=== PATIENT | female | born 1970 | race Caucasian/White ===

== ENCOUNTER 2017-09-23 15:19 | Emergency (ER) | payer MEDICARE, OTHER, SELFPAY | END 2017-09-23 16:51 | disposition home or self-care (01) | PROVIDERS: Emergency Provider Nurse Practitioner Family; Family Provider Emergency Medicine; Visit Provider Nurse Practitioner Family | DX: J09.X2 Influenza due to identified novel influenza A virus with other respiratory manifestations (principal); Z79.899 Other long term (current) drug therapy | CPT/HCPCS: 87804; 99201 ==

== ENCOUNTER → 2018-05-13 15:55 | Outpatient (CLI) | payer MEDICARE, OTHER, SELFPAY ==
[2018-05-13 16:38] LABS: Basophils % 0.4 % (0.1-2.0); Eosinophils # 0.6 K/mm3 (0.0-0.4); Eosinophils % 9.5 % (0.1-12.0); Hematocrit 40.9 % (37.0-47.0); Hemoglobin 13.5 g/dL (12.2-16.2); Mean Corpuscular HGB Conc 33.1 g/dL (31.8-35.4); Mean Corpuscular Hemoglobin 31.6 pg (27.0-31.2); Mean Corpuscular Volume 95.5 fl (81-99); Monocytes # 0.4 K/mm3 (0.1-1.0); Monocytes % 6.7 % (1.7-9.3); Neutrophils # 3.9 K/mm3 (1.8-7.8); Neutrophils % 66.4 % (37.0-80.0); Platelet Count 398 K/mm3 (142-424); Red Blood Count 4.28 M/mm3 (4.20-5.40); Red Cell Distribution Width 12.7 % (11.5-17.5); White Blood Count 5.9 K/mm3 (4.8-10.8)
[2018-05-13 17:56] LABS: Alanine Aminotransferase 16 U/L (12-78); Albumin Level 3.5 gm/dL (3.4-5.0); Albumin/Globulin Ratio 0.9 (1.1-1.8); Alkaline Phosphatase 108 U/L (46-116); Anion Gap 8.2 mEq/L (5-15); Aspartate Amino Transferase 11 U/L (15-37); Bilirubin,Total 0.2 mg/dL (0.2-1.0); Blood Urea Nitrogen 15 mg/dL (7-18); Carbon Dioxide 31 mmol/L (21.0-32.0); Chloride 107 mmol/L (98-107); Creatinine,Serum 0.83 mg/dL (0.55-1.02); Estimated Glomerular Filt Rate 73 ml/min (>60); GFR (African American) 88 ML/MIN (>60); Globulin 3.8 gm/dl (1.3-3.2); Glucose 97 mg/dL (74-106); Potassium 4.2 mmoL/L (3.5-5.1); Sodium 142 mmol/L (136-145); Total Protein,Serum 7.3 gm/dL (6.4-8.2)
== END ==
PROVIDERS: Visit Provider Physician Assistant
DX: K50.10 Crohn's disease of large intestine without complications (principal)
CPT/HCPCS: 36415; 80053; 85025

== ENCOUNTER → 2018-08-31 16:44 | Outpatient (CLI) | payer MEDICARE, OTHER, SELFPAY ==
[2018-08-31 17:03] LABS: Phenytoin (Dilantin) 2.9 ug/mL (10-20)
== END ==
PROVIDERS: Visit Provider Emergency Medicine
DX: R56.9 Unspecified convulsions (principal)
CPT/HCPCS: 80184; 80185

== ENCOUNTER → 2019-01-12 11:38 | Outpatient (CLI) | payer MEDICARE, OTHER, SELFPAY ==
[2019-01-12 12:04] LABS: Basophils % 0.7 % (0.1-2.0); Eosinophils # 0.4 K/mm3 (0.0-0.4); Eosinophils % 7.6 % (0.1-12.0); Hematocrit 38.3 % (37.0-47.0); Hemoglobin 13.1 g/dL (12.2-16.2); Lymphocytes % 16.8 % (10-50); Mean Corpuscular HGB Conc 34.1 g/dL (31.8-35.4); Mean Corpuscular Hemoglobin 32.9 pg (27.0-31.2); Mean Corpuscular Volume 96.6 fl (81-99); Mean Platelet Volume 6.8 fl (7.4-10.4); Monocytes # 0.4 K/mm3 (0.1-1.0); Monocytes % 7.2 % (1.7-9.3); Neutrophils % 67.7 % (37.0-80.0); Platelet Count 453 K/mm3 (142-424); Red Blood Count 3.97 M/mm3 (4.20-5.40); Red Cell Distribution Width 13.2 % (11.5-17.5); White Blood Count 5.8 K/mm3 (4.8-10.8)
[2019-01-12 12:36] LABS: Alanine Aminotransferase 15 U/L (12-78); Albumin Level 3.7 gm/dL (3.4-5.0); Albumin/Globulin Ratio 0.9 (1.1-1.8); Alkaline Phosphatase 107 U/L (46-116); Anion Gap 12.3 mEq/L (5-15); Aspartate Amino Transferase 12 U/L (15-37); Bilirubin,Total 0.2 mg/dL (0.2-1.0); Blood Urea Nitrogen 12 mg/dL (7-18); Calcium 9.4 mg/dL (8.5-10.1); Carbon Dioxide 28 mmol/L (21.0-32.0); Chloride 105 mmol/L (98-107); Creatinine,Serum 0.77 mg/dL (0.55-1.02); Estimated Glomerular Filt Rate 79 ml/min (>60); GFR (African American) 96 ML/MIN (>60); Glucose 96 mg/dL (74-106); Potassium 4.3 mmoL/L (3.5-5.1); Sodium 141 mmol/L (136-145); Total Protein,Serum 7.7 gm/dL (6.4-8.2)
== END ==
PROVIDERS: Visit Provider Physician Assistant
DX: K50.10 Crohn's disease of large intestine without complications (principal)
CPT/HCPCS: 36415; 80053; 85025

== ENCOUNTER → 2019-06-09 15:55 | Outpatient (CLI) | payer MEDICARE, OTHER, SELFPAY ==
[2019-06-09 16:31] LABS: Basophils % 0.4 % (0.1-2.0); Eosinophils # 0.4 K/mm3 (0.0-0.4); Hemoglobin 13.2 g/dL (12.2-16.2); Lymphocytes # 1.2 K/mm3 (0.7-4.5); Lymphocytes % 18.9 % (10-50); Mean Corpuscular HGB Conc 33.1 g/dL (31.8-35.4); Mean Corpuscular Hemoglobin 32.6 pg (27.0-31.2); Mean Corpuscular Volume 98.6 fl (81-99); Mean Platelet Volume 6.8 fl (7.4-10.4); Monocytes # 0.4 K/mm3 (0.1-1.0); Monocytes % 6.5 % (1.7-9.3); Neutrophils # 4.1 K/mm3 (1.8-7.8); Neutrophils % 67.2 % (37.0-80.0); Platelet Count 445 K/mm3 (142-424); Red Blood Count 4.05 M/mm3 (4.20-5.40); Red Cell Distribution Width 12.8 % (11.5-17.5); White Blood Count 6.1 K/mm3 (4.8-10.8)
[2019-06-09 22:19] LABS: Alanine Aminotransferase 17 U/L (12-78); Albumin Level 3.8 gm/dL (3.4-5.0); Alkaline Phosphatase 108 U/L (46-116); Anion Gap 12.6 mEq/L (5-15); Aspartate Amino Transferase 15 U/L (15-37); Bilirubin,Total 0.3 mg/dL (0.2-1.0); Blood Urea Nitrogen 10 mg/dL (7-18); Calcium 9.2 mg/dL (8.5-10.1); Carbon Dioxide 29 mmol/L (21.0-32.0); Chloride 105 mmol/L (98-107); Creatinine,Serum 0.72 mg/dL (0.55-1.02); Estimated Glomerular Filt Rate 85 ml/min (>60); GFR (African American) 103 ML/MIN (>60); Globulin 3.8 gm/dl (1.3-3.2); Glucose 99 mg/dL (74-106); Potassium 4.6 mmoL/L (3.5-5.1); Sodium 142 mmol/L (136-145); Total Protein,Serum 7.6 gm/dL (6.4-8.2)
== END ==
PROVIDERS: Visit Provider Physician Assistant
DX: K50.10 Crohn's disease of large intestine without complications (principal)
CPT/HCPCS: 36415; 80053; 85025

== ENCOUNTER → 2020-03-08 11:46 | Outpatient (CLI) | payer MEDICARE, MEDICAID, SELFPAY ==
[2020-03-08 12:24] LABS: Basophils % 0.5 % (0.1-2.0); Eosinophils # 0.4 K/mm3 (0.0-0.4); Eosinophils % 7.2 % (0.1-12.0); Hematocrit 39.1 % (37.0-47.0); Hemoglobin 13.3 g/dL (12.2-16.2); Lymphocytes # 1.2 K/mm3 (0.7-4.5); Mean Corpuscular HGB Conc 33.9 g/dL (31.8-35.4); Mean Corpuscular Hemoglobin 32.9 pg (27.0-31.2); Mean Corpuscular Volume 97.2 fl (81-99); Mean Platelet Volume 6.9 fl (7.4-10.4); Monocytes # 0.4 K/mm3 (0.1-1.0); Monocytes % 5.9 % (1.7-9.3); Neutrophils % 66.4 % (37.0-80.0); Platelet Count 468 K/mm3 (142-424); Red Blood Count 4.03 M/mm3 (4.20-5.40); Red Cell Distribution Width 13.3 % (11.5-17.5)
[2020-03-08 13:36] LABS: Chloride 103 mmol/L (98-107); Sodium 140 mmol/L (136-145)
[2020-03-08 13:37] LABS: Potassium 4.4 mmoL/L (3.5-5.1)
[2020-03-08 13:39] LABS: Alanine Aminotransferase 11 U/L (12-78); Albumin Level 4.1 g/dl (3.5-5.0); Albumin/Globulin Ratio 1.3 (1.1-1.8); Alkaline Phosphatase 91 U/L (38-126); Anion Gap 11.4 mEq/L (5-15); Aspartate Amino Transferase 18 U/L (14-36); Bilirubin,Total 0.4 mg/dl (0.2-1.3); Blood Urea Nitrogen 11 mg/dl (7-17); Calcium 9.3 mg/dl (8.4-10.2); Carbon Dioxide 30 mmol/L (22.0-30.0); Estimated Glomerular Filt Rate 75 ml/min (>60); GFR (African American) 91 ML/MIN (>60); Globulin 3.1 g/dL (1.3-3.2); Glucose 83 mg/dl (74-100); Total Protein,Serum 7.2 g/dl (6.3-8.2)
== END ==
PROVIDERS: Visit Provider Physician Assistant
DX: K50.10 Crohn's disease of large intestine without complications (principal)
CPT/HCPCS: 36415; 80053; 85025

== ENCOUNTER 2021-01-29 11:11 | Emergency (ER) | payer MEDICARE, OTHER, SELFPAY ==
--- NOTE | 2021-01-29 11:28 | XR_ITS ---
PROCEDURE: XR SHOULDER RT MIN 2V CLINICAL INDICATION: FALL Pain COMPARISON: No exams were available for comparison FINDINGS: There is a minimally displaced fracture involving the distal clavicle 12 mm proximal to the articular surface. There are mild osteoarthritic changes of the AC joint and glenohumeral joint. IMPRESSION: Minimally displaced fracture distal clavicle Dictated by: Amilcar Hastings MD 01/29/2021 12:06 Amilcar Hastings MD in [place] 01/29/2021 12:06
[2021-01-29 11:38] VITALS: BP 129/86; PULSE 88; RESP 19; TEMP 36.9; O2SAT 98; BMI 24.7
--- NOTE | 2021-01-29 11:43 | HMH.EDUTC ---
[facility] [place] Disposition Clinical Impression: Fracture, clavicle Qualifiers: Encounter type: initial encounter Clavicle location: unspecified part of clavicle Fracture type: closed Fracture alignment: displaced Laterality: right Qualified Code(s): S42.001A - Fracture of unspecified part of right clavicle, initial encounter for closed fracture Disposition: Home, Self-Care Condition on Discharge: Good Instructions: Clavicle Fracture, DI for Clavicle Fracture-Adult Additional Instructions: *RICE, Rest the extremity, Ice 15-20 minutes 3-4 times daily, Compress- wear the sherrie wrap as discussed as much as possible to help reduce swelling and pain, Elevate the extremity when at rest *Sling is for support and help control swelling, use it except in the shower. Be sure that is not to tight but not to loose either *Elevate when resting *Ibuprofen 600-800mg every 6-8 hours as needed for pain an inflammation. If need something more can take Tylenol in between doses of Ibuprofen to help Immediately follow up with your family doctor for new or worsening of symptoms, or no noticeable improvement over the next 3-5 days Follow up with Dr Cameron office will call you with appointment Return if needed Straight to ER if any life threatening symptoms Referrals: Giovanny Guzman MD [Primary Care Provider] - As needed Sherrie Cameron MD [Physician] - As needed (Office will call with appointment) Time of Disposition: 12:27 Medical Decision Making - Evan Inquiry Pt receiving controlled substance: No Evan was queried for this patient: No Vital Signs: 01/29/21 11:38 Temperature 98.4 F Temperature Source Oral Pulse Rate [Right Brachial] 88 Respiratory Rate 19 Blood Pressure [Right Arm] 129/86 Blood Pressure Mean [Right Arm] 100 Blood Pressure Source [Right Arm] Automatic Cuff Blood Pressure Position [Right Arm] Sitting 02 Sat by Pulse Oximetry 98 Oxygen Delivery Method Room Air - Radiology Data #1 Image(s): Shoulder Image Reviewed: Yes I have reviewed radiologist's interpretation Minimally displaced fracture distal clavicle - Physician Consults Physician Consulted: Rakesh Time: 12:10 Reason -: Orthopedic Eval/Care Comment/Response: Ortho gift consultant beeped awaiting call back Spoke with Dr Cameron and she advised to place patient in sling and office will call her with appointment [facility] HPI - General Stated complaint: ao 01/26/21 injury to Rt shoulder Time Seen by Provider: 01/29/21 11:43 Mode of Arrival: Ambulatory Source of Information: Patient Limitations: No Limitations Description of Symptoms (Recalled from Triage Doc. by RN): FELL DOWN STAIR. PT COMPLAINING OF RIGHT SHOULDER PAIN. HEENT Symptoms (Recalled from RN notes): No Resp Symptoms (Recalled from RN notes): No Skin Symptoms (Recalled from RN notes): No MS Symptoms (Recalled from RN notes): Yes Functional Status (Recalled from RN notes): WNL - History of Present Illness Provider Complaint: On Friday patient tripped on box and fell on the stairs and hit her right shoulder States that ever since she has been having pain and bruising to right shoulder/clavicle area States that hurts when she tries to raise her arm Denies any other symptoms or injuries - Related Data Previous Rx's Medication Instructions Recorded cholecalciferol (vitamin D3) 50 2,000 unit PO DAILY #90 cap 06/06/20 mcg (2,000 unit) capsule ondansetron HCl 4 mg tablet 4 mg PO Q8H PRN #14 tab 07/05/20 docusate sodium 100 mg capsule 100 mg PO BID PRN #60 cap 08/03/20 azathioprine 50 mg tablet 50 mg PO DAILY #90 tab 08/17/20 phenobarbital 32.4 mg tablet 32.4 mg PO DAILY 30 Days #30 tab 08/30/20 omeprazole 20 mg capsule,delayed 20 mg PO DAILY #90 cap 01/01/21 release phenytoin sodium extended 100 mg See Rx Instructions .ROUTE 01/01/21 capsule .COMPLEX #180 cap pravastatin 40 mg tablet 40 mg PO QHS #90 tab 01/01/21 Allergies Allergy/AdvReac Type Severity Reaction Status Date / Time No Known
[2021-01-29 12:41] VITALS: BP 129/86; PULSE 88; RESP 19; TEMP 36.9; O2SAT 98
== END 2021-01-29 12:42 | disposition home or self-care (01) ==
PROVIDERS: Emergency Provider Nurse Practitioner; PCP Emergency Medicine
DX: S42.001A Fracture of unspecified part of right clavicle, initial encounter for closed fracture (principal); W10.9XXA Fall (on) (from) unspecified stairs and steps, initial encounter; Y92.019 Unspecified place in single-family (private) house as the place of occurrence of the external cause; K21.9 Gastro-esophageal reflux disease without esophagitis; G40.909 Epilepsy, unspecified, not intractable, without status epilepticus; E78.5 Hyperlipidemia, unspecified
CPT/HCPCS: 73030; 99202; G0463

== ENCOUNTER → 2021-02-16 13:18 | Outpatient (CLI) | payer MEDICARE, OTHER, SELFPAY ==
--- NOTE | 2021-02-16 13:24 | XR_ITS ---
PROCEDURE: XR CLAVICLE RT CLINICAL INDICATION: R distal clavicle fracture COMPARISON: CR XR SHOULDER RT MIN 2V from 01/29/2021 FINDINGS: There is right distal clavicular fracture with minor adjacent callus formation. The acromioclavicular joint is unremarkable. The visualized shoulder joint is within normal limits. The right hemithorax is unremarkable. No significant soft tissue abnormality is noted. IMPRESSION: Healing right distal clavicular fracture. Dictated by: Mary Owen 02/16/2021 16:54 Mary Owen in [place] 02/16/2021 16:54
== END ==
PROVIDERS: PCP Emergency Medicine; Visit Provider Orthopaedic Surgery
DX: S42.031A Displaced fracture of lateral end of right clavicle, initial encounter for closed fracture (principal)
CPT/HCPCS: 73000

== ENCOUNTER → 2021-02-27 18:40 | Outpatient (CLI) | payer MEDICARE, OTHER, SELFPAY ==
[2021-02-27 18:49] LABS: Basophils % 0.3 % (0.1-2.0); Eosinophils # 0.1 K/mm3 (0.0-0.4); Eosinophils % 1.3 % (0.1-12.0); Hematocrit 41.4 % (37.0-47.0); Hemoglobin 14.2 g/dL (12.2-16.2); Lymphocytes # 0.9 K/mm3 (0.7-4.5); Lymphocytes % 12.9 % (10-50); Mean Corpuscular HGB Conc 34.3 g/dL (31.8-35.4); Mean Corpuscular Hemoglobin 32.4 pg (27.0-31.2); Mean Corpuscular Volume 94.5 fl (81-99); Mean Platelet Volume 8.5 fl (7.4-10.4); Monocytes # 0.5 K/mm3 (0.1-1.0); Monocytes % 7.3 % (1.7-9.3); Neutrophils # 5.6 K/mm3 (1.8-7.8); Neutrophils % 78.2 % (37.0-80.0); Platelet Count 559 K/mm3 (142-424); Red Blood Count 4.38 M/mm3 (4.20-5.40); Red Cell Distribution Width 12.8 % (11.5-17.5); White Blood Count 7.2 K/mm3 (4.8-10.8)
[2021-02-27 19:00] LABS: Alanine Aminotransferase 13 U/L (12-78); Albumin Level 4.6 g/dl (3.5-5.0); Albumin/Globulin Ratio 1.4 (1.1-1.8); Alkaline Phosphatase 109 U/L (38-126); Anion Gap 12.9 mEq/L (5-15); Aspartate Amino Transferase 25 U/L (14-36); Bilirubin,Total 0.6 mg/dl (0.2-1.3); Blood Urea Nitrogen 6 mg/dl (7-17); Calcium 9.6 mg/dl (8.4-10.2); Carbon Dioxide 26 mmol/L (22.0-30.0); Chloride 101 mmol/L (98-107); Cholesterol 224 mg/dl (140-200); Estimated Glomerular Filt Rate 105 ml/min (>60); GFR (African American) 127 ML/MIN (>60); Globulin 3.3 g/dL (1.3-3.2); Glucose 109 mg/dl (74-100); HDL Cholesterol 75 mg/dl (40-60); Potassium 3.9 mmoL/L (3.5-5.1); Sodium 136 mmol/L (136-145); Total Protein,Serum 7.9 g/dl (6.3-8.2); Triglycerides 63 mg/dl (30-150); VLDL Cholesterol 13 mg/dL (0-40)
[2021-02-27 19:11] LABS: Direct LDL Cholesterol 108.89 mg/dL (100-129)
[2021-02-27 19:17] LABS: 25-OH Vitamin D, Total 77.4 ng/mL (30-100)
[2021-02-27 19:18] LABS: Free T4 (Free Thyroxine) 1.26 ng/dl (0.78-2.19)
[2021-02-27 19:32] LABS: Thyroid Stimulating Hormone 0.41 uIU/mL (0.465-4.68)
== END ==
PROVIDERS: Visit Provider Emergency Medicine
DX: E66.3 Overweight (principal); R53.83 Other fatigue; E55.9 Vitamin D deficiency, unspecified; R56.9 Unspecified convulsions; K21.9 Gastro-esophageal reflux disease without esophagitis; Z68.24 Body mass index [BMI] 24.0-24.9, adult
CPT/HCPCS: 80053; 80061; 82306; 84439; 84443; 85025

== ENCOUNTER → 2021-03-08 13:39 | Outpatient (CLI) | payer MEDICARE, OTHER, SELFPAY ==
--- NOTE | 2021-03-08 13:49 | XR_ITS ---
PROCEDURE: XR CLAVICLE RT CLINICAL INDICATION: RT clavicle fracture COMPARISON: CR XR CLAVICLE RT from 02/16/2021 FINDINGS: Comminuted slightly impacted nondisplaced fracture once again noted involving the distal aspect of the clavicle with developing callus formation. The AC joint appears intact. IMPRESSION: Healing nondisplaced comminuted slightly impacted distal clavicular on the right Dictated by: Amilcar Hastings MD 03/08/2021 14:51 Amilcar Hastings MD in [place] 03/08/2021 14:51
[2021-03-08 15:37] LABS: Chloride 103 mmol/L (98-107); Sodium 138 mmol/L (136-145)
[2021-03-08 15:38] LABS: Potassium 5.1 mmoL/L (3.5-5.1)
[2021-03-08 15:40] LABS: Alanine Aminotransferase 12 U/L (12-78); Albumin Level 4.6 g/dl (3.5-5.0); Albumin/Globulin Ratio 1.4 (1.1-1.8); Alkaline Phosphatase 90 U/L (38-126); Aspartate Amino Transferase 22 U/L (14-36); Bilirubin,Total 0.4 mg/dl (0.2-1.3); Blood Urea Nitrogen 13 mg/dl (7-17); Carbon Dioxide 29 mmol/L (22.0-30.0); Estimated Glomerular Filt Rate 105 ml/min (>60); GFR (African American) 127 ML/MIN (>60); Globulin 3.3 g/dL (1.3-3.2); Total Protein,Serum 7.9 g/dl (6.3-8.2)
[2021-03-08 15:41] LABS: Glucose 93 mg/dl (74-100)
== END ==
PROVIDERS: Physician Assistant; PCP Emergency Medicine; Visit Provider Orthopaedic Surgery
DX: S42.001A Fracture of unspecified part of right clavicle, initial encounter for closed fracture
CPT/HCPCS: 36415; 73000; 80053

== ENCOUNTER → 2021-03-15 10:24 | Outpatient (CLI) | payer MEDICARE, OTHER, SELFPAY ==
[2021-03-15 11:11] LABS: Basophils % 0.3 % (0.1-2.0); Eosinophils # 0.4 K/mm3 (0.0-0.4); Eosinophils % 5.6 % (0.1-12.0); Hematocrit 40.9 % (37.0-47.0); Hemoglobin 13.6 g/dL (12.2-16.2); Lymphocytes # 1.3 K/mm3 (0.7-4.5); Lymphocytes % 18.8 % (10-50); Mean Corpuscular HGB Conc 33.3 g/dL (31.8-35.4); Mean Corpuscular Volume 99.1 fl (81-99); Mean Platelet Volume 7.4 fl (7.4-10.4); Monocytes # 0.4 K/mm3 (0.1-1.0); Monocytes % 5.6 % (1.7-9.3); Neutrophils # 4.6 K/mm3 (1.8-7.8); Neutrophils % 69.7 % (37.0-80.0); Platelet Count 430 K/mm3 (142-424); Red Blood Count 4.13 M/mm3 (4.20-5.40); Red Cell Distribution Width 13.1 % (11.5-17.5); White Blood Count 6.6 K/mm3 (4.8-10.8)
== END ==
PROVIDERS: Visit Provider Physician Assistant
DX: K50.10 Crohn's disease of large intestine without complications (principal)
CPT/HCPCS: 36415; 85025

== ENCOUNTER → 2021-04-19 12:46 | Outpatient (CLI) | payer MEDICARE, OTHER, SELFPAY ==
--- NOTE | 2021-04-19 12:54 | XR_ITS ---
PROCEDURE: XR CLAVICLE RT CLINICAL INDICATION: rt clavicle fracture COMPARISON: CR XR CLAVICLE RT from 02/16/2021 CR XR CLAVICLE RT from 03/08/2021 FINDINGS: There is a healing nondisplaced distal clavicular fracture with minimal impaction of the fracture fragments. The AC joint and glenohumeral joint appear intact. There does appear to be some calcification in the surrounding soft tissues. The joint spaces are well-preserved. No significant degenerative/arthritic changes. No erosive changes evident. Other findings:None. IMPRESSION: No change healing distal clavicular fracture Dictated by: Amilcar Hastings MD 04/19/2021 15:48 Amilcar Hastings MD in [place] 04/19/2021 15:48
== END ==
PROVIDERS: PCP Emergency Medicine; Visit Provider Orthopaedic Surgery
DX: S42.001A Fracture of unspecified part of right clavicle, initial encounter for closed fracture (principal)
CPT/HCPCS: 73000

== ENCOUNTER 2021-07-16 10:47 | Emergency (ER) | payer MEDICARE, OTHER, SELFPAY ==
[2021-07-16 11:10] VITALS: BP 108/74; PULSE 96; RESP 19; TEMP 37; O2SAT 98; BMI 27.6
--- NOTE | 2021-07-16 11:39 | HMH.EDUTC ---
[facility] [place] Disposition Clinical Impression: URI (upper respiratory infection) Qualifiers: URI type: unspecified URI Qualified Code(s): J06.9 - Acute upper respiratory infection, unspecified Disposition: Home, Self-Care Condition on Discharge: Good Instructions: Sore Throat, DI for Sinusitis, DI for COVID-19 (Suspected or Confirmed ), Preventing the Spread of Coronavirus Discharge Instructions Additional Instructions: *Monitor Temp, Over the counter Motrin or Tylenol as directed/as needed Tylenol every 4 hours and Motrin every 6 hours (as long as your family doctor has told you that you can take it) for fever or pain. and straight to ER if unable to lower temp less than 101.0 after medication given *Warm salt water gargles may help to soothe the throat *Throat Lozenges *Warm fluids like tea with honey may help to soothe the throat *Sleep elevated *Humidifier/Vaporizer *Flonase 2 sprays in each nostril daily but be aware that it may take 2-3 days before you notice improvement Your throat swab was sent for culture. Those results are typically sent to your primary care. Be sure to follow up in 2-3 days with your family doctor/primary care physician if no improvement so they can review those result and treat if necessary. If you don?t have a primary care doctor, I recommend you get one but in the mean time, you will have to return to a walk in clinic Follow up IMMEDIATELY for new or worsening symptoms or no Noticeable improvement over the next 48-72 hours. 911 for difficulty breathing or swallowing You were tested for today for COVID19 your test result should be back in the next 24-48 hours, you was given hand out to log onto the [facility] portal to get your results if you have trouble logging on you may call for results You was given a handout with instructions for Self Quarantine and Self isolation for while you wait on test results and what to do if they are positive If you are positive the Health Dept will be contacting you also Make sure to take your Vitamins Vit. C Vit D and Zinc if you can take them Prescriptions: Fluticasone Propionate [Flonase 50mcg nasal spray 16gm] 1 spr NS DAILY #1 each Transmission Status: Pending to [facility] Benzonatate [Tessalon Perle 100mg Cap*] 100 mg PO TID PRN #30 cap PRN Reason: Cough Transmission Status: Pending to [id number] Azithromycin [Z-All 250mg Tab] 250 mg PO DIRECTED #6 tab Transmission Status: Pending to [id number] Referrals: Giovanny Guzman MD [Primary Care Provider] - Medical Decision Making - Evan Inquiry Pt receiving controlled substance: No Evan was queried for this patient: No Vital Signs: 07/16/21 11:10 Temperature 98.6 F Temperature Source Oral Pulse Rate [Right Brachial] 96 H Respiratory Rate 19 Blood Pressure [Right Arm] 108/74 L Blood Pressure Mean [Right Arm] 85 Blood Pressure Source [Right Arm] Automatic Cuff Blood Pressure Position [Right Arm] Sitting 02 Sat by Pulse Oximetry 98 Oxygen Delivery Method Room Air - Lab Data Lab results reviewed: Yes: I reviewed the patient's lab results. Orders (Tests/Meds): ORDERS Category Date Time Status Covid-19 Nasal PCR ([facility]) Routine Lab 07/16/21 11:14 Received [facility] [place] HPI - General Stated complaint: covid symptoms Time Seen by Provider: 07/16/21 11:39 Mode of Arrival: Ambulatory Source of Information: Patient Limitations: No Limitations Description of Symptoms (Recalled from Triage Doc. 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
[2021-07-16 11:55] VITALS: BP 108/74; PULSE 96; RESP 19; TEMP 37; O2SAT 98
[2021-07-16 11:56] LABS: UTC Strep Screen (Rapid) Negative (Negative)
== END 2021-07-16 11:57 | disposition home or self-care (01) ==
PROVIDERS: Emergency Provider Nurse Practitioner; PCP Emergency Medicine
DX: U07.1 COVID-19 (principal)
CPT/HCPCS: G0463; 87880; 99203; C9803; U0003; U0005

== ENCOUNTER → 2021-10-08 17:47 | Outpatient (CLI) | payer MEDICARE, OTHER, SELFPAY ==
[2021-10-08 18:58] LABS: Phenytoin (Dilantin) < 3.0 ug/ml (10-20)
== END ==
PROVIDERS: Visit Provider Nurse Practitioner Family
DX: R41.0 Disorientation, unspecified (principal); N39.0 Urinary tract infection, site not specified; B96.20 Unspecified Escherichia coli [E. coli] as the cause of diseases classified elsewhere
CPT/HCPCS: 80185; 87086; 87088; 87186

== ENCOUNTER 2021-10-12 15:28 | Emergency (ER) | payer MEDICARE, OTHER, SELFPAY ==
[2021-10-12 15:29] VITALS: BP 117/70; PULSE 83; RESP 18; TEMP 36.8; O2SAT 100; BMI 24.2
--- NOTE | 2021-10-12 15:52 | CT_ITS ---
FINAL REPORT TECHNIQUE: Thin section axial images were obtained from skull base to vertex without contrast. CLINICAL HISTORY: ams COMPARISON: January 28, 2018 FINDINGS: There is no mass effect or midline shift. There is no hydrocephalus. The ventricles are symmetric in size and configuration. There is no extra-axial or intraparenchymal hemorrhage. The posterior fossa is without acute abnormality. The basilar cisterns are preserved. There is an air-fluid level in the left maxillary sinus consistent with sinusitis. No acute osseous abnormality is identified. IMPRESSION: No acute intracranial abnormality. Left maxillary sinusitis. Reviewed, Interpreted and Dictated by Mikki Sims MD Transcribed by Yasmany Guy Authenticated by Mikki Sims MD on 10/12/2021 04:19:22 PM [facility]
[2021-10-12 15:56] LABS: Microscopic, Urine URINE MICROSCOPIC (MICROSCOPIC)
[2021-10-12 15:59] LABS: Basophils # 0.1 K/mm3 (0-0.2); Basophils % 1.1 % (0.1-2.0); Eosinophils # 0.2 K/mm3 (0.0-0.4); Eosinophils % 3.9 % (0.1-12.0); Hematocrit 45.3 % (37.0-47.0); Hemoglobin 14.4 g/dL (12.2-16.2); Mean Corpuscular HGB Conc 31.8 g/dL (31.8-35.4); Mean Corpuscular Hemoglobin 33.1 pg (27.0-31.2); Mean Corpuscular Volume 104.1 fl (81-99); Mean Platelet Volume 7.7 fl (7.4-10.4); Monocytes # 0.3 K/mm3 (0.1-1.0); Monocytes % 5.6 % (1.7-9.3); Neutrophils # 4.1 K/mm3 (1.8-7.8); Neutrophils % 72.4 % (37.0-80.0); Platelet Count 580 K/mm3 (142-424); Red Blood Count 4.35 M/mm3 (4.20-5.40); White Blood Count 5.6 K/mm3 (4.8-10.8)
[2021-10-12 16:02] LABS: Appearance,Urine CLEAR (Clear); Blood, Urine Negative (Negative); Color,Urine YELLOW (Yellow); Glucose,Urine (UA) Negative (Negative); Ketones,Urine TRACE (Negative); Leukocyte Esterase,Urine Negative (Negative); Nitrate,Urine Negative (Negative); Protein,Urine TRACE (Negative); Specific Gravity, Urine >= 1.030 (1.005-1.030); Urobilinogen,Urine 0.2 EU/dl (0.2)
[2021-10-12 16:07] LABS: Bilirubin,Urine 1+ (Negative)
[2021-10-12 16:08] LABS: Alanine Aminotransferase 21 U/L (12-78); Albumin Level 4.7 g/dl (3.5-5.0); Albumin/Globulin Ratio 1.4 (1.1-1.8); Alkaline Phosphatase 93 U/L (38-126); Anion Gap 12.6 mEq/L (5-15); Aspartate Amino Transferase 25 U/L (14-36); Bilirubin,Total 0.4 mg/dl (0.2-1.3); Blood Urea Nitrogen 10 mg/dl (7-17); Calcium 9.8 mg/dl (8.4-10.2); Carbon Dioxide 29 mmol/L (22.0-30.0); Chloride 101 mmol/L (98-107); Creatinine Clearance Estimated 77 mL/min (50-200); Estimated Glomerular Filt Rate 88 ml/min (>60); GFR (African American) 106 ML/MIN (>60); Globulin 3.3 g/dL (1.3-3.2); Glucose 103 mg/dl (74-100); Potassium 3.6 mmoL/L (3.5-5.1); Sodium 139 mmol/L (136-145)
[2021-10-12 16:12] LABS: Barbiturates Screen,Urine Positive ng/ml (<200)
[2021-10-12 16:13] LABS: Amphetamine/Metha Screen,Urine Negative ng/ml (<1000); Benzodiazepines Screen,Urine Negative ng/ml (<200)
[2021-10-12 16:14] LABS: Cannabinoid Screen,Urine Negative ng/ml (<50)
[2021-10-12 16:15] VITALS: BP 121/78; PULSE 93; O2SAT 100
[2021-10-12 16:15] LABS: Cocaine Screen,Urine Negative ng/ml (<300); Methadone Screen,Urine Negative ng/ml (<300)
[2021-10-12 16:16] LABS: Opiate Screen,Urine Negative ng/ml (<300)
[2021-10-12 16:17] LABS: Phencyclidine Screen,Urine Negative ng/ml (<25)
[2021-10-12 16:22] LABS: RBC,Urine Occasional #/hpf (0-3)
[2021-10-12 16:23] LABS: Bacteria,Urine Trace /lpf
--- NOTE | 2021-10-12 16:43 | HMH.EDGENADL ---
ED Disposition Clinical Impression: Behavioral change Disposition: Home, Self-Care Condition on Discharge: Fair Additional Instructions: Follow-up with primary care provider for neurology referral and evaluation by Dr. Ibanez next week. Referrals: Quentin Rosario APRN [Primary Care Provider] - - Critical Care Critical Care Time: No Attestation: On 10/12/21, the high probability of a clinically significant, sudden or life threatening deterioration of the following system(s) required my full and direct attention, intervention and personal management. The time I documented below is in addition to time spent performing reported procedures but includes the following listed in this critical care notation. Medical Decision Making - Evan Inquiry Pt receiving controlled substance: No Vital Signs: 10/12/21 15:29 10/12/21 16:15 Temperature 98.3 F Temperature Source Oral Pulse Rate 93 H Pulse Rate [Left Radial] 83 Respiratory Rate 18 Blood Pressure 121/78 Blood Pressure [Right Arm] 117/70 Blood Pressure Mean [Right Arm] 85 02 Sat by Pulse Oximetry 100 100 Oxygen Delivery Method Room Air - Lab Data Lab Results 10/12/21 15:45: WBC 5.6, RBC 4.35, Hgb 14.4, Hct 45.3, MCV 104.1 H, MCH 33.1 H, MCHC 31.8, RDW 14.0, Plt Count 580 H, MPV 7.7, Neut % (Auto) 72.4, Lymph % (Auto) 17.0, Hickman % (Auto) 5.6, Eos % (Auto) 3.9, Baso % (Auto) 1.1, Neut # (Auto) 4.1, Lymph # (Auto) 1.0, Hickman # (Auto) 0.3, Eos # (Auto) 0.2, Baso # (Auto) 0.1 10/12/21 15:45: Sodium 139, Potassium 3.6, Chloride 101, Carbon Dioxide 29, Anion Gap 12.6, BUN 10, Creatinine 0.70, Estimated Creat Clear 77, Estimated GFR 88, Est GFR ( Amer) 106, Glucose 103 H, Calcium 9.8, Total Bilirubin 0.4, AST 25, ALT 21, Alkaline Phosphatase 93, Total Protein 8.0, Albumin 4.7, Globulin 3.3 H, Albumin/Globulin Ratio 1.4 10/12/21 15:45: Urine Opiates Screen Negative, Urine Methadone Screen Negative, Ur Barbituates Screen Positive H, Ur Phencyclidine Scrn Negative, Ur Amphetamines Screen Negative, U Benzodiazepines Scrn Negative, Urine Cocaine Screen Negative, U Marijuana (THC) Screen Negative 10/12/21 15:45: Phenytoin 4.2 L, Phenobarbital 7.8 10/12/21 15:51: Urine Color Yellow, Urine Appearance Clear, Urine pH 6.0, Ur Specific [place] >= 1.030, Urine Protein Trace, Urine Glucose (UA) Negative, Urine Ketones Trace, Urine Blood Negative, Urine Nitrate Negative, Urine Bilirubin 1+ A, Urine Urobilinogen 0.2, Ur Leukocyte Esterase Negative, Urine RBC Occasional, Urine WBC 3-5, Ur Squamous Epith Cells 5-10, Urine Bacteria Trace Result diagrams: 10/12/21 15:45 10/12/21 15:45 Orders (Tests/Meds): ED MEDICATIONS Discontinued Medications Generic Name Dose Route Start Last Admin Trade Name Freq PRN Reason Stop Dose Admin Sodium Chloride 1,000 ml 10/12/21 17:21 Sodium Chloride 0.9% 1000ml Bag IV 10/12/21 17:22 BOLUS ONE - CT Data CT Scan: Head Time Received: 16:[address] Reviewed: Yes: I have viewed the radiologist's interpretation Findings Narrative: Procedure(s): CT head/brain wo con Accession Number(s): [id number] cc: Mikki Sims MD; Quentin Rosario APRN; Dick Velasco MD~ FINAL REPORT TECHNIQUE: Thin section axial images were obtained from skull base to vertex without contrast. CLINICAL HISTORY: ams COMPARISON: January 28, 2018 FINDINGS: There is no mass effect or midline shift. There is no hydrocephalus. The ventricles are symmetric in size and configuration. There is no extra-axial or intraparenchymal hemorrhage. The posterior fossa is without acute abnormality. The basilar cisterns are preserved. There is an air-fluid level in the left maxillary sinus consistent with sinusitis. No acute osseous abnormality is identified. IMPRESSION: No acute intracranial abnormality. Left maxillary sinusitis. Reviewed, Interpreted and Dictated by Mikki Sims MD Transcribed by Yasmany Guy Authenticated by Mikki Isabel
[2021-10-12 17:00] LABS: Phenytoin (Dilantin) 4.2 ug/ml (10-20)
[2021-10-12 17:53] VITALS: BP 133/81; PULSE 91; RESP 18; TEMP 36.8; O2SAT 97
== END 2021-10-12 18:45 | disposition home or self-care (01) ==
PROVIDERS: Emergency Provider Emergency Medicine; PCP Nurse Practitioner Family
DX: R46.89 Other symptoms and signs involving appearance and behavior (principal); R41.82 Altered mental status, unspecified; K21.9 Gastro-esophageal reflux disease without esophagitis; E78.5 Hyperlipidemia, unspecified
CPT/HCPCS: 70450; 80053; 80184; 80185; 80305; 81001; 85025; 96365; 99283

== ENCOUNTER → 2021-10-18 07:27 | Outpatient (CLI) | payer MEDICARE, OTHER, SELFPAY ==
--- NOTE | 2021-10-18 07:29 | MR_ITS ---
FINAL REPORT CLINICAL HISTORY: confusion. BEHAVIORAL CHANGES AND CONFUSION X3WKS. PT HAD A HARD TIME STAYING STILL. REPEATED SCANS AND SENT OVER IMAGES. FINDINGS: Multiplanar MR imaging of the brain was performed without contrast. Motion artifact is identified on many of the images. There is no evidence of intracranial hemorrhage or mass. The ventricular size is normal. There is no evidence of shift of the midline structures. No abnormal extra-axial fluid collection is identified. The posterior fossa and brainstem have an unremarkable appearance. No area of abnormal restricted diffusion is identified. Normal major vessel vascular flow voids are seen. There is mucosal thickening of multiple ethmoid air cells. There is fluid in the left maxillary sinus consistent with sinusitis. IMPRESSION: Unremarkable brain with no acute intracranial abnormality. Sinusitis as above. Reviewed, Interpreted and Dictated by Luis Ponce III, MD Transcribed by Marce Fernandez Authenticated by Luis Ponce III, MD on 10/18/2021 09:46:51 AM [facility]
== END ==
PROVIDERS: PCP Nurse Practitioner Family; Visit Provider Nurse Practitioner Family
DX: R41.0 Disorientation, unspecified (principal)
CPT/HCPCS: 70551

== ENCOUNTER → 2021-10-31 09:35 | Outpatient (CLI) | payer MEDICARE, OTHER, SELFPAY | PROVIDERS: PCP Nurse Practitioner Family; Visit Provider Specialist | DX: R46.89 Other symptoms and signs involving appearance and behavior (principal); R56.9 Unspecified convulsions; K50.919 Crohn's disease, unspecified, with unspecified complications; Z92.25 Personal history of immunosuppression therapy | CPT/HCPCS: 95819 ==

== ENCOUNTER → 2021-11-06 14:54 | Outpatient (CLI) | payer MEDICARE, OTHER, SELFPAY ==
--- NOTE | 2021-11-06 14:54 | CT_ITS ---
FINAL REPORT TECHNIQUE: Thin section axial CT with coronal reconstruction without IV contrast. This study was performed with techniques to keep radiation doses as low as reasonably achievable, (ALARA). Individualized dose reduction techniques using automated exposure control or adjustment of mA and/or kV according to the patient's size were employed. CLINICAL HISTORY: Chronic sinusitis. COMPARISON: None. FINDINGS: No fracture is present. There is mucosal thickening involving the inferior bilateral maxillary sinuses. This measures 5 mm bilaterally. There is minimal mucosal thickening in the ethmoid air cells. Frontal and sphenoid sinuses are clear. Ostiomeatal complexes are patent. There is 4 mm of nasal septal deviation to the right. IMPRESSION: Mild bilateral maxillary and ethmoid sinusitis. Reviewed, Interpreted and Dictated by Sree Niño MD Transcribed by Nicole Clayton PA-C Authenticated by Sree iNño MD on 11/06/2021 04:40:41 PM [facility]
== END ==
PROVIDERS: PCP Nurse Practitioner Family; Visit Provider Specialist
DX: J32.9 Chronic sinusitis, unspecified (principal)
CPT/HCPCS: 70486

== ENCOUNTER 2021-12-05 12:16 | Emergency (ER) | payer MEDICARE, OTHER, SELFPAY ==
[2021-12-05 12:57] VITALS: BP 105/69; PULSE 119; RESP 19; TEMP 36.8; O2SAT 96; BMI 22.6
--- NOTE | 2021-12-05 13:28 | HMH.EDUTC ---
[facility] [place] Dis[place] Clinical Impression: Bronchitis Sinusitis Qualifiers: Sinusitis location: unspecified location Chronicity: acute Recurrence: non-recurrent Qualified Code(s): J01.90 - Acute sinusitis, unspecified Disposition: Home, Self-Care Condition on Discharge: Good Instructions: DI for Sinusitis, DI for COVID-19 (Suspected or Confirmed ), Preventing the Spread of Coronavirus Discharge Instructions Additional Instructions: Drink plenty of fluids. Take tylenol or ibuprofen for pain or fever. Take the medications as directed. Follow up with your regular doctor. GO TO THE ER FOR ANY WORSENING SYMPTOMS Quarantine until you know the results of your covid-19 test. Notify your school or workplace of your results and follow their instructions regarding return to work/school. Prescriptions: methylPREDNISolone [Medrol] 4 mg PO DIRECTED 6 Days #21 packet Transmission Status: Received by [facility] Azithromycin [Z-All 250mg Tab*] 250 mg PO UD DOSE PK #6 tab Transmission Status: Received by [facility] Referrals: Giovanny Guzman MD [Primary Care Provider] - Time of Disposition: 13:53 Medical Decision Making - Medical Records Medical records reviewed: No: I reviewed the patient's medical records. - Evan Inquiry Pt receiving controlled substance: No Vital Signs: 12/05/21 12:57 12/05/21 14:03 Temperature 98.3 F 98.3 F Temperature Source Oral Pulse Rate 119 H Pulse Rate [Left] 119 H Respiratory Rate 19 19 Blood Pressure 105/69 L Blood Pressure [Right Arm] 105/69 L Blood Pressure Mean [Right Arm] 81 02 Sat by Pulse Oximetry 96 [facility] [place] HPI - General Stated complaint: sinus congestion, sore throat Time Seen by Provider: 12/05/21 13:28 Mode of Arrival: Ambulatory Source of Information: Patient Limitations: No Limitations Description of Symptoms (Recalled from Triage Doc. by RN): pt c/o sinus pressure and congestion x2 days. HEENT Symptoms (Recalled from RN notes): Yes Resp Symptoms (Recalled from RN notes): No Skin Symptoms (Recalled from RN notes): No MS Symptoms (Recalled from RN notes): No Functional Status (Recalled from RN notes): wnl - History of Present Illness Provider Complaint: She c/o sore throat, sinus congestion and bilateral ear pain for the past 2 days. - Related Data Home Medications Medication Instructions Recorded Confirmed phenytoin sodium extended 100 mg 100 mg PO BID 10/12/21 11/27/21 capsule Previous Rx's Medication Instructions Recorded azathioprine 50 mg tablet 50 mg PO BID #60 tab 09/04/21 cholecalciferol (vitamin D3) 50 2,000 unit PO DAILY #90 cap 09/04/21 mcg (2,000 unit) capsule omeprazole 20 mg capsule,delayed 20 mg PO DAILY #90 cap 09/04/21 release phenobarbital 32.4 mg tablet 32.4 mg PO DAILY #30 tab 09/04/21 pravastatin 20 mg tablet 20 mg PO HS #90 tab 09/04/21 Azithromycin [Z-All 250mg Tab*] 250 mg PO UD DOSE PK #6 tab 12/05/21 methylPREDNISolone [Medrol] 4 mg PO DIRECTED 6 Days #21 12/05/21 packet Allergies Allergy/AdvReac Type Severity Reaction Status Date / Time No Known Allergies Allergy Verified 11/27/21 11:02 - Worker's Comp Is this a Worker's Comp case?: No [facility] History - Hepatitis A Screen Drug use history?: No High risk sexual behaviors?: No History of sexually transmitted infection?: No Currently employed?: No Childcare worker?: No Do you have indoor plumbing?: Yes Do you have electricity?: Yes Attestation statement:: This patient has been screened for Hepatitis A risk factors. I have reviewed the patient's past medical history: Yes Medical History: Reports:: Gastroesophageal Reflux Disease(GERD), Hyperlipidemia, Migraine, Seizures Denies:: Cancer, Diabetes Mellitus Type 1, Diabetes Mellitus Type 2, MRSA Other Medical History: Reports: Other Comment: Chrons disease, Vitamin D deficiency, acid reflux Laterality Cases: Bilateral: Tonsillectomy Other Surgeries: Figueroa
[2021-12-05 14:03] VITALS: BP 105/69; PULSE 119; RESP 19; TEMP 36.8
== END 2021-12-05 14:03 | disposition home or self-care (01) ==
PROVIDERS: Emergency Provider Nurse Practitioner Family; PCP Emergency Medicine
DX: J20.9 Acute bronchitis, unspecified (principal); J01.90 Acute sinusitis, unspecified; K21.9 Gastro-esophageal reflux disease without esophagitis; E78.5 Hyperlipidemia, unspecified
CPT/HCPCS: G0463; 99212; C9803; U0003; U0005

== ENCOUNTER → 2022-04-24 10:51 | Outpatient (CLI) | payer MEDICARE, OTHER, SELFPAY ==
[2022-04-24 11:36] LABS: Basophils % 0.5 % (0.1-2.0); Eosinophils # 0.4 K/mm3 (0.0-0.4); Eosinophils % 5.8 % (0.1-12.0); Lymphocytes # 0.9 K/mm3 (0.7-4.5); Lymphocytes % 13.2 % (10-50); Mean Corpuscular HGB Conc 32.6 g/dL (31.8-35.4); Mean Corpuscular Hemoglobin 32.4 pg (27.0-31.2); Mean Corpuscular Volume 99.5 fl (81-99); Monocytes # 0.4 K/mm3 (0.1-1.0); Neutrophils # 5.3 K/mm3 (1.8-7.8); Neutrophils % 74.6 % (37.0-80.0); Platelet Count 417 K/mm3 (142-424); Red Blood Count 4.32 M/mm3 (4.20-5.40); Red Cell Distribution Width 12.3 % (11.5-17.5)
[2022-04-24 12:07] LABS: Chloride 104 mmol/L (98-107); Potassium 4.6 mmoL/L (3.5-5.1); Sodium 139 mmol/L (136-145)
[2022-04-24 12:10] LABS: Alanine Aminotransferase 17 U/L (12-78); Albumin Level 4.7 g/dl (3.5-5.0); Albumin/Globulin Ratio 1.5 (1.1-1.8); Alkaline Phosphatase 211 U/L (38-126); Anion Gap 11.6 mEq/L (5-15); Aspartate Amino Transferase 66 U/L (14-36); Bilirubin,Total 1.5 mg/dl (0.2-1.3); Blood Urea Nitrogen 16 mg/dl (7-17); Calcium 9.9 mg/dl (8.4-10.2); Carbon Dioxide 28 mmol/L (22.0-30.0); Estimated Glomerular Filt Rate 104 ml/min (>60); GFR (African American) 126 ML/MIN (>60); Globulin 3.2 g/dL (1.3-3.2); Glucose 107 mg/dl (74-100); Total Protein,Serum 7.9 g/dl (6.3-8.2)
[2022-04-24 12:15] LABS: C-Reactive Protein 1.8 mg/L (0-4)
== END ==
PROVIDERS: Physician Assistant; PCP Emergency Medicine
DX: K50.80 Crohn's disease of both small and large intestine without complications (principal)
CPT/HCPCS: 36415; 80053; 85025; 86140

== ENCOUNTER → 2022-04-30 10:27 | Outpatient (CLI) | payer MEDICARE, OTHER, SELFPAY ==
[2022-04-30 11:36] LABS: Alanine Aminotransferase 10 U/L (12-78); Alkaline Phosphatase 86 U/L (38-126); Aspartate Amino Transferase 22 U/L (14-36); Bilirubin,Direct 0.1 mg/dl (0.0-0.4); Bilirubin,Indirect 0.1 mg/dL (0.0-0.9); Bilirubin,Total 0.2 mg/dl (0.2-1.3); Bilirubin,Unconjugated 0.1 mg/dL (0.0-1.1)
[2022-05-01 14:11] LABS: Actin (Smooth Muscle) Antibody 6 Units (0-19); Mitochondrial (M2) Antibody <20.0 Units (0.0-20.0)
[2022-05-02 16:12] LABS: Alkaline Phosphatase 95 IU/L (44-121); Bone Fraction: 36 % (14-68); Intestinal Frac.: 11 % (0-18); Liver Fraction: 53 % (18-85)
== END ==
PROVIDERS: PCP Emergency Medicine; Visit Provider Physician Assistant
DX: R74.8 Abnormal levels of other serum enzymes (principal)
CPT/HCPCS: 36415; 80076; 84075; 84080; 86255; 86256

== ENCOUNTER → 2022-09-11 11:01 | Outpatient (CLI) | payer MEDICARE, OTHER, SELFPAY ==
[2022-09-11 12:12] LABS: Basophils % 0.6 % (0.1-2.0); Eosinophils # 0.3 K/mm3 (0.0-0.4); Eosinophils % 6.3 % (0.1-12.0); Hematocrit 44.4 % (37.0-47.0); Hemoglobin 14.3 g/dL (12.2-16.2); Lymphocytes # 1.2 K/mm3 (0.7-4.5); Lymphocytes % 24.4 % (10-50); Mean Corpuscular HGB Conc 32.1 g/dL (31.8-35.4); Mean Corpuscular Hemoglobin 32.5 pg (27.0-31.2); Mean Corpuscular Volume 101.2 fl (81-99); Mean Platelet Volume 7.5 fl (7.4-10.4); Monocytes # 0.3 K/mm3 (0.1-1.0); Monocytes % 6.3 % (1.7-9.3); Neutrophils % 62.4 % (37.0-80.0); Platelet Count 465 K/mm3 (142-424); Red Blood Count 4.39 M/mm3 (4.20-5.40); Red Cell Distribution Width 13.1 % (11.5-17.5); White Blood Count 4.8 K/mm3 (4.8-10.8)
[2022-09-11 12:42] LABS: Alanine Aminotransferase 11 U/L (12-78); Albumin Level 4.4 g/dl (3.5-5.0); Albumin/Globulin Ratio 1.6 (1.1-1.8); Alkaline Phosphatase 101 U/L (38-126); Anion Gap 8.3 mEq/L (5-15); Aspartate Amino Transferase 22 U/L (14-36); Bilirubin,Total 0.2 mg/dl (0.2-1.3); Blood Urea Nitrogen 11 mg/dl (7-17); Carbon Dioxide 30 mmol/L (22.0-30.0); Chloride 105 mmol/L (98-107); Estimated Glomerular Filt Rate 87 ml/min (>60); GFR (African American) 106 ML/MIN (>60); Globulin 2.8 g/dL (1.3-3.2); Glucose 89 mg/dl (74-100); Potassium 4.3 mmoL/L (3.5-5.1); Sodium 139 mmol/L (136-145); Total Protein,Serum 7.2 g/dl (6.3-8.2)
[2022-09-11 12:49] LABS: C-Reactive Protein 0.5 mg/L (0-4)
== END ==
PROVIDERS: PCP Emergency Medicine; Visit Provider Physician Assistant
DX: Z51.81 Encounter for therapeutic drug level monitoring (principal); Z79.624 Long term (current) use of inhibitors of nucleotide synthesis
CPT/HCPCS: 36415; 80053; 85025; 86140

== ENCOUNTER 2022-09-18 08:21 | Day surgery (SDC) | payer MEDICARE, OTHER, SELFPAY ==
[2022-09-05 10:54] VITALS: BMI 25.0
[2022-09-18] VITALS (7 sets, daily range): BP systolic 94–122; BP diastolic 60–67; PULSE 80–118; RESP 16–18; TEMP 36.2–36.9; O2SAT 92–100
--- NOTE | 2022-09-18 09:22 | EXP.ANES.CKL ---
[facility] Disclaimer: The information contained in this section may have been updated after the patient was seen, as this information can be updated by other users. Surgical History History of cholecystectomy History of colonoscopy History of tonsillectomy Family History Other Family history of Crohn's disease Social History Smoking Status: Never smoker alcohol intake: never substance use type: denies use current occupational status: disabled Travel in the last 8 weeks: None adopted: No caregiver/support person: No foster care: No household members: family housing: house lives independently: Yes marital status: single education level: high school special daayn needs: No agree to transfusion: No do you feel safe at home: Yes victim of physical abuse: No victim of emotional abuse: No victim of sexual abuse: No would you like helpful sources: No [facility] Anesthesia Checklist Patient Identification Patient Identification: Arm Band and Verbal (Name & ) Structural Data Admitted From: Home Planned Operative Procedure/s: Colonoscopy Consent for Planned Operative Procedure(s) Verified: Yes NPO Status Verified Time NPO: 00:00 Airway Assessment C-Spine Mobility Assessed: Yes TMJ Mobility Assessed: Yes Dentition: Poor Dentition Neurological Assessment Level of Consciousness: Awake Hx Seizures: No Numbness or tingling in extremities: No Anesthesia Plan Anesthesia Risk discussed: Yes Anesthesia Plan: Verified ASA Class: III Anesthesia Type: MAC
--- NOTE | 2022-09-18 09:29 | P.PCN_ITS ---
Procedure: Date: 09/18/22 Patient Date of :: 1970 Procedure Performed:: Colonoscopy Indications:: The patient is a 52 year old who is here for colonoscopy. There is a history of Crohn disease diagnosed approximately 15 years ago. The location of Crohn disease is reported to be both colon and small bowel. The patient is treated with azathioprine 100 mg daily. Crohn disease is being managed by [facility]. Performing Provider:: Dario Holland MD Referring Provider:: MD Bailey Garcia APRN ([facility]) Sedation:: See RN records Procedure:: After placing the patient in the left lateral decubitus position, the colonoscopy was gently inserted into the rectum and under direct visualization advanced to the cecum which was identified by transillumination in the right lower quadrant, identification of the ileocecal valve, appendiceal orifice, and cecal strap. Color, texture, mucosa, and anatomy of the colon were carefully examined with the scope. Findings:: Anal canal: normal Rectum: Internal hemorrhoids Sigmoid colon: Diffuse erthema and congestion of mid sigmoid colon. Biopsies obtained Descending colon: normal without polyps or inflammatory changes Splenic flexure: normal Transverse colon: normal without polyps or inflammatory changes Hepatic flexure: normal Ascending colon: normal without polyps or inflammatory changes Cecum: normal Terminal ileum: normal Impression: Diffuse ertyhema of mid sigmoid colon Normal appearing terminal ileum Colon overall showed normal appearing vascular pattern Colon biopsies obtained throughout colon in four quadrant fashion for surveillance in IBD Recommendations:: Await pathology results Continue azathioprine Repeat colonoscopy in 3 years Follow up in IBD Clinic at for management of Crohn disease Complications:: None Estimated blood obtained (mL): 0
== END 2022-09-18 10:55 | disposition home or self-care (01) ==
PROVIDERS: PCP Emergency Medicine; Visit Provider Internal Medicine
PROC: 0DJD8ZZ Inspection of Lower Intestinal Tract, Via Natural or Artificial Opening Endoscopic (ICD-10-PCS; CPT 45378; principal; 2022-09-18 09:30)
DX: K50.90 Crohn's disease, unspecified, without complications (principal); K64.8 Other hemorrhoids; Z79.899 Other long term (current) drug therapy
CPT/HCPCS: G0105; 88305; J2704

== ENCOUNTER → 2023-04-24 12:16 | Outpatient (CLI) | payer MEDICARE, SELFPAY ==
[2023-04-24 13:51] LABS: Alanine Aminotransferase 12 U/L (12-78); Albumin Level 4.4 g/dl (3.5-5.0); Albumin/Globulin Ratio 1.5 (1.1-1.8); Alkaline Phosphatase 77 U/L (38-126); Anion Gap 8.8 mEq/L (5-15); Aspartate Amino Transferase 22 U/L (14-36); Bilirubin,Total 0.3 mg/dl (0.2-1.3); Blood Urea Nitrogen 13 mg/dl (7-17); Calcium 9.5 mg/dl (8.4-10.2); Carbon Dioxide 30 mmol/L (22.0-30.0); Chloride 106 mmol/L (98-107); Estimated Glomerular Filt Rate 87 ml/min (>60); GFR (African American) 105 ML/MIN (>60); Glucose 102 mg/dl (74-100); Potassium 4.8 mmoL/L (3.5-5.1); Sodium 140 mmol/L (136-145); Total Protein,Serum 7.4 g/dl (6.3-8.2)
[2023-04-24 13:56] LABS: C-Reactive Protein 0.8 mg/L (0-4)
[2023-04-24 16:27] LABS: Basophils % 0.5 % (0.1-2.0); Eosinophils # 0.3 K/mm3 (0.0-0.4); Eosinophils % 6.9 % (0.1-12.0); Hematocrit 42.1 % (37.0-47.0); Hemoglobin 13.8 g/dL (12.2-16.2); Lymphocytes # 1.2 K/mm3 (0.7-4.5); Lymphocytes % 26.8 % (10-50); Mean Corpuscular HGB Conc 32.9 g/dL (31.8-35.4); Mean Corpuscular Hemoglobin 32.8 pg (27.0-31.2); Mean Corpuscular Volume 99.7 fl (81-99); Mean Platelet Volume 7.4 fl (7.4-10.4); Monocytes # 0.3 K/mm3 (0.1-1.0); Monocytes % 6.7 % (1.7-9.3); Neutrophils # 2.6 K/mm3 (1.8-7.8); Neutrophils % 59.1 % (37.0-80.0); Platelet Count 426 K/mm3 (142-424); Red Blood Count 4.22 M/mm3 (4.20-5.40); White Blood Count 4.5 K/mm3 (4.8-10.8)
== END ==
PROVIDERS: PCP Emergency Medicine; Visit Provider Physician Assistant
DX: Z51.81 Encounter for therapeutic drug level monitoring (principal); Z79.624 Long term (current) use of inhibitors of nucleotide synthesis
CPT/HCPCS: 36415; 80053; 85025; 86140

== ENCOUNTER → 2023-09-25 08:57 | Outpatient (CLI) | payer MEDICARE, SELFPAY ==
[2023-09-25 22:00] LABS: Amphetamine/Metha Screen,Urine Negative ng/ml (<1000)
[2023-09-25 22:01] LABS: Barbiturates Screen,Urine Positive ng/ml (<200); Benzodiazepines Screen,Urine Negative ng/ml (<200)
[2023-09-25 22:02] LABS: Cannabinoid Screen,Urine Negative ng/ml (<50)
[2023-09-25 22:03] LABS: Cocaine Screen,Urine Negative ng/ml (<300); Methadone Screen,Urine Negative ng/ml (<300)
[2023-09-25 22:04] LABS: Opiate Screen,Urine Negative ng/ml (<300)
[2023-09-25 22:05] LABS: Phencyclidine Screen,Urine Negative ng/ml (<25)
== END ==
PROVIDERS: Internal Medicine; PCP Physician Assistant; Visit Provider Physician Assistant
DX: Z79.899 Other long term (current) drug therapy (principal)
CPT/HCPCS: 80305

== ENCOUNTER 2023-10-10 09:34 | Outpatient (CLI) | payer MEDICARE, OTHER, SELFPAY ==
[2023-10-10 09:41] LABS: MANUAL DIFFERENTIAL MANUAL DIFFERENTIAL (MANUAL DIFF)
[2023-10-10 09:54] LABS: Basophils % 0.5 % (0.1-2.0); Eosinophils # 0.2 K/mm3 (0.0-0.4); Hematocrit 44.3 % (37.0-47.0); Hemoglobin 14.6 g/dL (12.2-16.2); Lymphocytes # 0.9 K/mm3 (0.7-4.5); Mean Corpuscular HGB Conc 32.9 g/dL (31.8-35.4); Mean Corpuscular Hemoglobin 33.5 pg (27.0-31.2); Mean Corpuscular Volume 101.7 fl (81-99); Monocytes # 0.3 K/mm3 (0.1-1.0); Monocytes % 5.2 % (1.7-9.3); Neutrophils # 4.8 K/mm3 (1.8-7.8); Neutrophils % 77.4 % (37.0-80.0); Platelet Count 523 K/mm3 (142-424); Red Blood Count 4.35 M/mm3 (4.20-5.40); Red Cell Distribution Width 13.4 % (11.5-17.5); White Blood Count 6.2 K/mm3 (4.8-10.8)
[2023-10-10 10:17] LABS: Alanine Aminotransferase 21 U/L (12-78); Albumin Level 4.4 g/dl (3.5-5.0); Albumin/Globulin Ratio 1.6 (1.1-1.8); Alkaline Phosphatase 96 U/L (38-126); Anion Gap 7.8 mEq/L (5-15); Aspartate Amino Transferase 27 U/L (14-36); Bilirubin,Total 0.5 mg/dl (0.2-1.3); Blood Urea Nitrogen 12 mg/dl (7-17); Calcium 9.3 mg/dl (8.4-10.2); Carbon Dioxide 33 mmol/L (22.0-30.0); Chloride 103 mmol/L (98-107); Estimated Glomerular Filt Rate 87 ml/min (>60); GFR (African American) 105 ML/MIN (>60); Globulin 2.7 g/dL (1.3-3.2); Glucose 114 mg/dl (74-100); Potassium 3.8 mmoL/L (3.5-5.1); Sodium 140 mmol/L (136-145); Total Protein,Serum 7.1 g/dl (6.3-8.2)
[2023-10-10 12:09] LABS: Eosinophils % 1 % (0-3); Lymphocytes % 23 % (10-50); Monocytes % 4 % (2-9); Neutrophils % 72 % (42-76); Total Cells Counted 100
[2023-10-10 12:10] LABS: Macrocytosis 1+; Platelet Estimate Slight Increase
[2023-10-19 15:32] LABS: 1,25 Dihydroxy Vitamin D 36 pg/mL (.); 1,25-Dihydroxy, Vitamin D-2 <10 pg/mL (.); 1,25-Dihydroxy, Vitamin D-3 36 pg/mL (.)
== END 2023-10-10 23:59 ==
LOC: LAB 09:35
PROVIDERS: PCP Internal Medicine; Visit Provider Specialist
DX: R56.9 Unspecified convulsions (principal); K50.90 Crohn's disease, unspecified, without complications; Z79.899 Other long term (current) drug therapy
CPT/HCPCS: 36415; 80053; 80184; 80185; 82652; 85007; 85014; 85018; 85048; 85049

== ENCOUNTER 2023-10-23 13:54 | Outpatient (CLI) | payer MEDICARE, OTHER, SELFPAY ==
[2023-10-23 14:42] LABS: Iron 88 ug/dL (37-170)
[2023-10-23 14:52] LABS: Total Iron Binding Capacity 222 ug/dL (265-497)
[2023-10-23 15:16] LABS: Ferritin 15.8 ng/ml (11.1-264)
[2023-10-23 15:30] LABS: Vitamin B12 234 pg/mL (239-931)
[2023-10-24 15:11] LABS: Folate, RBC 663 ng/mL (>498); Hematocrit 38.6 % (34.0-46.6)
== END 2023-10-23 23:59 ==
LOC: LAB 13:56
PROVIDERS: PCP Internal Medicine; Visit Provider Specialist
DX: K50.919 Crohn's disease, unspecified, with unspecified complications (principal); Z79.899 Other long term (current) drug therapy; R56.9 Unspecified convulsions; E61.1 Iron deficiency; E53.8 Deficiency of other specified B group vitamins
CPT/HCPCS: 36415; 82607; 82728; 82747; 83540; 83550; 85014

== ENCOUNTER 2023-11-14 09:25 | Outpatient (CLI) | payer MEDICARE, OTHER, SELFPAY ==
--- NOTE | 2023-11-14 09:26 | XR_ITS ---
FINAL REPORT TECHNIQUE: Bone mineral density was calculated of the lumbar spine and hip. CLINICAL HISTORY: osteoporosis FINDINGS: Using L1-4, the bone mineral density of the spine is 0.893 g/cm2, corresponding to T-score of -1.4. Using the left hip, the bone mineral density of the femoral neck is 0.64 g/cm2, corresponding to a T-score of -1.9. NOTE: T-score: Standard deviation compared with peak bone mass of young adult mean. *Following the recommendations of the International Society of Bone densitometry, classification of hip BMD is based on the lower of two T-scores; total hip or femoral neck. IMPRESSION: Diminished bone mineral density of the lumbar spine and left hip consistent with low bone density. Reviewed, Interpreted and Dictated by Luis Ponce III, MD Transcribed by Taylor Grimes Authenticated and [facility]
== END 2023-11-14 23:59 ==
LOC: RAD 09:26
PROVIDERS: PCP Internal Medicine; Visit Provider Specialist
DX: K50.919 Crohn's disease, unspecified, with unspecified complications (principal); M81.0 Age-related osteoporosis without current pathological fracture; R56.9 Unspecified convulsions
CPT/HCPCS: 77080; 94762

== ENCOUNTER 2024-01-01 14:43 | Outpatient (CLI) | payer MEDICARE, OTHER, SELFPAY ==
[2024-01-01 15:08] LABS: Basophils # 0.1 K/mm3 (0-0.2); Basophils % 1.1 % (0.1-2.0); Eosinophils # 0.3 K/mm3 (0.0-0.4); Eosinophils % 6.3 % (0.1-12.0); Lymphocytes # 1.2 K/mm3 (0.7-4.5); Lymphocytes % 22.6 % (10-50); Mean Corpuscular HGB Conc 32.6 g/dL (31.8-35.4); Mean Corpuscular Hemoglobin 34.7 pg (27.0-31.2); Mean Corpuscular Volume 106.3 fl (81-99); Mean Platelet Volume 7.7 fl (7.4-10.4); Monocytes # 0.4 K/mm3 (0.1-1.0); Monocytes % 7.5 % (1.7-9.3); Neutrophils # 3.4 K/mm3 (1.8-7.8); Neutrophils % 62.6 % (37.0-80.0); Platelet Count 373 K/mm3 (142-424); Red Blood Count 3.76 M/mm3 (4.20-5.40); Red Cell Distribution Width 13.4 % (11.5-17.5); White Blood Count 5.4 K/mm3 (4.8-10.8)
[2024-01-01 16:38] LABS: Alanine Aminotransferase 13 U/L (12-78); Albumin/Globulin Ratio 1.4 (1.1-1.8); Alkaline Phosphatase 84 U/L (38-126); Anion Gap 8.3 mEq/L (5-15); Aspartate Amino Transferase 21 U/L (14-36); Bilirubin,Total 0.2 mg/dl (0.2-1.3); Blood Urea Nitrogen 15 mg/dl (7-17); Calcium 9.3 mg/dl (8.4-10.2); Carbon Dioxide 28 mmol/L (22.0-30.0); Chloride 106 mmol/L (98-107); Estimated Glomerular Filt Rate 104 ml/min (>60); GFR (African American) 126 ML/MIN (>60); Globulin 2.8 g/dL (1.3-3.2); Glucose 98 mg/dl (74-100); Potassium 4.3 mmoL/L (3.5-5.1); Sodium 138 mmol/L (136-145); Total Protein,Serum 6.8 g/dl (6.3-8.2)
== END 2024-01-01 23:59 ==
PROVIDERS: PCP Physician Assistant; Visit Provider Physician Assistant
DX: Z51.81 Encounter for therapeutic drug level monitoring (principal); Z79.624 Long term (current) use of inhibitors of nucleotide synthesis
CPT/HCPCS: 36415; 80053; 85025

== ENCOUNTER 2024-02-09 13:46 | Outpatient (CLI) | payer MEDICARE, OTHER, SELFPAY ==
[2024-02-09 14:42] LABS: Basophils % 0.7 % (0.1-2.0); Eosinophils # 0.3 K/mm3 (0.0-0.4); Eosinophils % 6.2 % (0.1-12.0); Hemoglobin 13.8 g/dL (12.2-16.2); Lymphocytes % 19.9 % (10-50); Mean Corpuscular HGB Conc 32.1 g/dL (31.8-35.4); Mean Corpuscular Hemoglobin 33.4 pg (27.0-31.2); Mean Corpuscular Volume 104.2 fl (81-99); Monocytes # 0.4 K/mm3 (0.1-1.0); Monocytes % 6.9 % (1.7-9.3); Neutrophils # 3.4 K/mm3 (1.8-7.8); Neutrophils % 66.4 % (37.0-80.0); Platelet Count 379 K/mm3 (142-424); Red Blood Count 4.12 M/mm3 (4.20-5.40); Red Cell Distribution Width 13.1 % (11.5-17.5); White Blood Count 5.2 K/mm3 (4.8-10.8)
[2024-02-09 16:21] LABS: Folate > 20.00 ng/mL; Vitamin B12 > 1000 pg/mL (239-931)
== END 2024-02-09 23:59 | disposition home or self-care (01) ==
LOC: LAB 13:47
PROVIDERS: PCP Physician Assistant; Visit Provider Internal Medicine Medical Oncology
DX: D75.838 Other thrombocytosis (principal)
CPT/HCPCS: 36415; 82607; 82746; 85025

== ENCOUNTER 2024-06-25 11:00 | Outpatient (CLI) | payer MEDICARE, OTHER, SELFPAY ==
[2024-06-25 11:23] LABS: Basophils # 0.1 K/mm3 (0-0.2); Basophils % 0.9 % (0.1-2.0); Eosinophils # 0.4 K/mm3 (0.0-0.4); Eosinophils % 8.3 % (0.1-12.0); Hematocrit 42.7 % (37.0-47.0); Hemoglobin 13.8 g/dL (12.2-16.2); Lymphocytes # 1.1 K/mm3 (0.7-4.5); Lymphocytes % 19.9 % (10-50); Mean Corpuscular HGB Conc 32.2 g/dL (31.8-35.4); Mean Corpuscular Hemoglobin 33.2 pg (27.0-31.2); Mean Corpuscular Volume 102.8 fl (81-99); Mean Platelet Volume 6.6 fl (7.4-10.4); Monocytes # 0.3 K/mm3 (0.1-1.0); Monocytes % 5.7 % (1.7-9.3); Neutrophils # 3.4 K/mm3 (1.8-7.8); Neutrophils % 65.1 % (37.0-80.0); Platelet Count 420 K/mm3 (142-424); Red Blood Count 4.16 M/mm3 (4.20-5.40); Red Cell Distribution Width 12.8 % (11.5-17.5); White Blood Count 5.3 K/mm3 (4.8-10.8)
[2024-06-25 12:01] LABS: Alanine Aminotransferase 18 U/L (12-78); Albumin Level 4.3 g/dl (3.5-5.0); Albumin/Globulin Ratio 1.5 (1.1-1.8); Alkaline Phosphatase 94 U/L (38-126); Anion Gap 10.9 mEq/L (5-15); Aspartate Amino Transferase 28 U/L (14-36); Bilirubin,Total 0.5 mg/dl (0.2-1.3); Blood Urea Nitrogen 14 mg/dl (7-17); Calcium 9.7 mg/dl (8.4-10.2); Carbon Dioxide 27 mmol/L (22.0-30.0); Chloride 105 mmol/L (98-107); Estimated Glomerular Filt Rate 87 ml/min (>60); GFR (African American) 105 ML/MIN (>60); Globulin 2.8 g/dL (1.3-3.2); Glucose 94 mg/dl (74-100); Potassium 3.9 mmoL/L (3.5-5.1); Sodium 139 mmol/L (136-145); Total Protein,Serum 7.1 g/dl (6.3-8.2)
== END 2024-06-25 23:59 | disposition home or self-care (01) ==
LOC: LAB 11:01
PROVIDERS: PCP Physician Assistant; Visit Provider Physician Assistant
DX: Z51.81 Encounter for therapeutic drug level monitoring (principal); Z79.624 Long term (current) use of inhibitors of nucleotide synthesis
CPT/HCPCS: 36415; 80053; 85025

== ENCOUNTER 2024-09-21 12:51 | Outpatient (CLI) | payer MEDICARE, OTHER, SELFPAY ==
[2024-09-21 13:31] LABS: Basophils # 0.1 K/mm3 (0-0.2); Basophils % 0.9 % (0.1-2.0); Eosinophils # 0.4 K/mm3 (0.0-0.4); Eosinophils % 5.5 % (0.1-12.0); Hemoglobin 14.3 g/dL (12.2-16.2); Mean Corpuscular HGB Conc 33.3 g/dL (31.8-35.4); Mean Corpuscular Hemoglobin 33.2 pg (27.0-31.2); Mean Corpuscular Volume 99.9 fl (81-99); Mean Platelet Volume 7.1 fl (7.4-10.4); Monocytes # 0.4 K/mm3 (0.1-1.0); Monocytes % 6.8 % (1.7-9.3); Neutrophils # 4.4 K/mm3 (1.8-7.8); Neutrophils % 70.7 % (37.0-80.0); Platelet Count 417 K/mm3 (142-424); Red Blood Count 4.31 M/mm3 (4.20-5.40); Red Cell Distribution Width 12.6 % (11.5-17.5); White Blood Count 6.2 K/mm3 (4.8-10.8)
[2024-09-21 14:07] LABS: Alanine Aminotransferase 13 U/L (12-78); Albumin Level 4.1 g/dl (3.5-5.0); Albumin/Globulin Ratio 1.5 (1.1-1.8); Alkaline Phosphatase 83 U/L (38-126); Anion Gap 10.3 mEq/L (5-15); Aspartate Amino Transferase 23 U/L (14-36); Bilirubin,Total 0.3 mg/dl (0.2-1.3); Blood Urea Nitrogen 12 mg/dl (7-17); Calcium 9.5 mg/dl (8.4-10.2); Carbon Dioxide 29 mmol/L (22.0-30.0); Chloride 105 mmol/L (98-107); Estimated Glomerular Filt Rate 74 ml/min (>60); GFR (African American) 90 ML/MIN (>60); Globulin 2.7 g/dL (1.3-3.2); Glucose 79 mg/dl (74-100); Potassium 4.3 mmoL/L (3.5-5.1); Sodium 140 mmol/L (136-145); Total Protein,Serum 6.8 g/dl (6.3-8.2)
== END 2024-09-21 23:59 | disposition home or self-care (01) ==
PROVIDERS: PCP Physician Assistant; Visit Provider Physician Assistant
DX: Z51.81 Encounter for therapeutic drug level monitoring (principal); Z79.624 Long term (current) use of inhibitors of nucleotide synthesis
CPT/HCPCS: 36415; 80053; 85025

== ENCOUNTER 2024-10-13 11:35 | Emergency (ER) | payer MEDICARE, OTHER, SELFPAY ==
[2024-10-13] VITALS (10 sets, daily range): BP systolic 102–116; BP diastolic 57–78; PULSE 84–96; RESP 16–97; TEMP 36.6; O2SAT 94–99; BMI 25.0
--- NOTE | 2024-10-13 12:08 | CT_ITS ---
FINAL REPORT TECHNIQUE: Axial CT images were performed through the head. Coronal reformatted images were submitted. This study was performed with techniques to keep radiation doses as low as reasonably achievable (ALARA). Individualized dose reduction techniques using automated exposure control or adjustment of mA and/or kV according to the patient's size were employed. CLINICAL HISTORY: direct head trauma, hit in the head with a gutter full of ice that fell from house COMPARISON: 10/12/2021 FINDINGS: The ventricles are normal in size. There is no evidence of hemorrhage. There is no mass or edema identified. There is no abnormal extra-axial fluid seen. There is a small posterior right frontal scalp hematoma. The paranasal sinuses demonstrate circumscribed mucoperiosteal thickening of the maxillary sinuses, ethmoid air cells, and frontal sinuses consistent with chronic pansinusitis. The mastoid air cells are hypoplastic. IMPRESSION: No acute intracranial process. Chronic pansinusitis. Reviewed, Interpreted and Dictated by Ermias Gomez MD Transcribed by Bailey Vilchis Authenticated and [facility]
--- NOTE | 2024-10-13 12:08 | XR_ITS ---
FINAL REPORT CLINICAL HISTORY: shoulder trauma, abrasion, pain, hit on shoulder with a gutter full of ice that fell off house COMPARISON: 04/19/2021 FINDINGS: RIGHT SHOULDER Three views demonstrate no acute fracture or dislocation. The previously seen fracture has healed but the ossification along the undersurface of the distal clavicle is more evident and larger than on the previous study. There are mild hypertrophic changes of the AC joint. The soft tissues are unremarkable. IMPRESSION: No acute process. Reviewed, Interpreted and Dictated by Ermias Gomez MD Transcribed by Bailey Vilchis Authenticated and [facility]
[2024-10-13] MEDS: ACETAMINOPHEN 500MG TAB 1000 MG PO (12:13)
[2024-10-13] MEDS: METHOCARBAMOL 500MG TABLET 500 MG PO (12:13)
[2024-10-13] MEDS: IBUPROFEN 800 MG TABLET PO (12:14)
--- NOTE | 2024-10-13 14:01 | HMH.EDGENADL ---
Discharge Plan Disposition Patient Disposition: Home, Self-Care Condition: Good Prescriptions Prescriptions: New methocarbamol 500 mg tablet 500 mg PO QID Qty: 120 0RF No Action azathioprine 50 mg tablet 50 mg PO BID Qty: 180 1RF cholecalciferol (vitamin D3) [Vitamin D3] 50 mcg (2,000 unit) capsule 50 mcg PO DAILY Qty: 90 1RF Rx Instructions: TAKE ONE CAPSULE BY MOUTH EVERY DAY phenytoin sodium extended 100 mg capsule 100 mg PO BID Qty: 180 3RF mecobalamin (vitamin B12) 5,000 mcg tablet,chewable 5,000 mcg PO DAILY Qty: 90 3RF Caplyta 10.5 mg capsule See Rx Instructions .ROUTE .COMPLEX Qty: 90 3RF Dose Instruction: TAKE ONE CAPSULE BY MOUTH EVERY DAY Rx Instructions: TAKE ONE CAPSULE BY MOUTH EVERY DAY phenobarbital 32.4 mg tablet 32.4 mg PO DAILY Qty: 90 3RF omeprazole 20 mg capsule,delayed release(DR/EC) See Rx Instructions .ROUTE .COMPLEX Qty: 90 1RF Dose Instruction: TAKE ONE CAPSULE BY MOUTH EVERY DAY FOR acid reflux Rx Instructions: TAKE ONE CAPSULE BY MOUTH EVERY DAY FOR acid reflux pravastatin 20 mg tablet See Rx Instructions .ROUTE .COMPLEX Qty: 90 1RF Dose Instruction: TAKE ONE TABLET BY MOUTH EVERY DAY AT BEDTIME FOR cholesterol Rx Instructions: TAKE ONE TABLET BY MOUTH EVERY DAY AT BEDTIME FOR cholesterol Referrals Follow up/Referrals: Neris Sy PA [Primary Care Provider] - See instructions Activity Restrictions/Add. Instructions Additional Instructions/Restrictions: Alternate Tylenol and ibuprofen every 3 hours as needed for pain. You can take the Robaxin up to 4 times per day for muscle spasm. Please follow up with your primary care provider in 2-3 days. Please return to ED if your symptoms worsen, change in location, change in severity, new symptoms develop or if you become concerned for your health. Clinical Impressions Clinical Impression: Closed head injury Qualifiers: Encounter type: initial encounter Qualified Code(s): S09.90XA - Unspecified injury of head, initial encounter Injury of right shoulder Qualifiers: Encounter type: initial encounter Qualified Code(s): S49.91XA - Unspecified injury of right shoulder and upper arm, initial encounter Instructions Patient Instructions: Concussion, DI for Shoulder Pain Print Language Print Language: Haitian Discharge ED Provider: Ruffo,Nevaeh General Adult HPI General Chief complaint: PAIN Stated complaint: AO 10/13/24, gutter fell/ hit head and shoulder Time Seen by Provider: 10/13/24 12:00 Mode of Arrival: Ambulatory Source of Information: Patient and Parent(s) Limitations: No Limitations Description of Symptoms (Recalled from ER Triage Doc. by RN): pt states she walked outside heard a boom and a second story gutter fell on her R shoulder/head. pt denies LOC. pt states her R shoulder is 8/10 and sharp with abrasions. pt also c/o R sided CHE, no abrasions noted. pt states her CHE is 3/10 History of Present Illness HPI narrative: Patient is a 54-year-old female presenting with a right shoulder and head injury. Patient was standing outside of her home when her gutter broke and fell hitting her in the head and right shoulder. Patient denies losing consciousness. She denies new numbness or tingling. Patient's pain is more significant in her right shoulder. Patient states she is a history of seizure without breakthrough seizure. Patient was knocked down. Patient denies blood thinner use. Patient denies headache, blurred vision, neck pain. Related Data Previous Rx's ?Medication ?Instructions ?Recorded azathioprine 50 mg tablet 50 mg PO BID crohns #180 tabs 03/21/23 cholecalciferol (vitamin D3) 50 50 mcg PO DAILY Supplement #90 caps 03/21/23 mcg (2,000 unit) capsule (Vitamin D3) phenytoin sodium extended 100 mg 100 mg PO BID #180 caps 10/08/23 capsule mecobalamin (vitamin B12) 5,000 5,000 mcg PO DAILY B 12 deficiency 10/23/23 mcg chewable tablet #90 tabs lumateperone 10.5 mg capsule See Rx Instructions .Route 04/20/24 (Caplyta) .COMPLEX #90 caps phenobarbital 32.4 mg tablet 32.4 mg PO DAILY seizures #90 tabs 05/13/24 omeprazole 20 mg capsule,delayed See Rx Instructions .Route 07/01/24 release .COMPLEX #90 caps pravastatin 20 mg tablet See Rx Instructions .Route 07/01/24 .COMPLEX #90 tabs methocarbamol 500 mg tablet 500 mg PO QID #120 tabs 10/13/24 Allergies Allergy/AdvReac Type Severity Reaction Status Date / Time No Known Allergies Allergy Verified 10/13/24 11:56 [facility] Disclaimer: The information contained in this section may have been updated after the patient was seen, as this information can be updated by other users. Medical History On snf drug therapy Seizure Crohn disease Surgical History History of cholecystectomy History of colonoscopy History of tonsillectomy Family History Other Family history of Crohn's disease Social History Smoking Status: Never smoker alcohol intake: never substance use type: denies use current occupational status: disabled Travel in the last 8 weeks: None adopted: No caregiver/support person: No foster care: No household members: family housing: house lives independently: Yes marital status: single education level: high school special dayan needs: No agree to transfusion: No do you feel safe at home: Yes victim of physical abuse: No victim of emotional abuse: No victim of sexual abuse: No would you like helpful sources: No Have you lived/traveled outside [place] in past 30 days?: No Contact w/someone who lives/traveled outside US past 30 days?: No Exposure to someone with infectious disease in past 14 days?: No Do you have a fever (greater than 100.4 F or 38 C)?: No Have you tested positive for COVID-19: No Exposed to someone with COVID-19 in past 14 days?: No Do you have a sore throat?: No Do you have a cough?: No Do you have any weakness?: No Do you have any diarrhea?: No Are you experiencing any unusual bleeding?: No Do you have any muscle aches/pain?: No Do you have any abdominal pain?: No Are you experiencing loss of taste or smell?: No Other Medical History Have you received the Flu Vaccine for this season: No Have you received the Pneumonia Vaccine: Yes ROS Obtained: Yes All systems reviewed & no additional complaints except as documented Physical Exam General General appearance: alert and in no apparent distress Head Head exam: normocephalic and other (Area of bogginess without skin lesion on the right parietal scalp) Eye Eye exam: Present PERRL and EOMI; Absent scleral icterus Neck Neck exam: Present full ROM Respiratory Respiratory exam: Present normal lung sounds bilaterally Cardiovascular Cardiovascular exam: Present regular rate and normal rhythm Extremities Exam Extremities exam: Present full ROM and tenderness (Right shoulder with small abrasion and erythema); Absent edema Back Exam Back exam: Present full ROM Neurological Exam Neurological exam: Present alert and oriented X3; Absent motor sensory deficit Medical Decision Making Medical Records Medical records reviewed: Yes I reviewed the patient's medical records. Screening: Per USPSTF and CDC recommendations, given the prevalence of disease in our region, it is our hospital?s policy to screen for HIV and viral Hepatitis for all patients aged 18 and over and those with ongoing risk factors. Evan Inquiry Pt receiving controlled substance: No Evan was queried for this patient: No Vital Signs: 10/13/24 11:40 10/13/24 11:43 10/13/24 12:00 Temperature 97.9 F Temperature Source Oral Pulse Rate 85 85 Pulse Rate [Left] 89 Respiratory Rate 97 H 16 Blood Pressure 109/67 L 112/72 Blood Pressure [Right Arm] 109/67 L Blood Pressure Mean [Right Arm] 81 Blood Pressure Source [Right Arm] Automatic Cuff Blood Pressure Position [Right Arm] Sitting 02 Sat by Pulse Oximetry 99 96 Oxygen Delivery Method Room Air Room Air 10/13/24 12:03 10/13/24 12:04 10/13/24 12:30 Temperature Temperature Source Pulse Rate 95 H 96 H 85 Pulse Rate [Left] Respiratory Rate Blood Pressure 107/65 L 102/59 L 116/78 Blood Pressure [Right Arm] Blood Pressure Mean [Right Arm] Blood Pressure Source [Right Arm] Blood Pressure Position [Right Arm] 02 Sat by Pulse Oximetry 94 L 97 95 Oxygen Delivery Method 10/13/24 13:00 10/13/24 13:30 Temperature Temperature Source Pulse Rate 91 H 89 Pulse Rate [Left] Respiratory Rate Blood Pressure 106/66 L 106/57 L Blood Pressure [Right Arm] Blood Pressure Mean [Right Arm] Blood Pressure Source [Right Arm] Blood Pressure Position [Right Arm] 02 Sat by Pulse Oximetry 95 97 Oxygen Delivery Method Orders (Tests/Meds): ED MEDICATIONS Discontinued Medications Generic Name Dose Route Start Last Admin Trade Name Freq PRN Reason Stop Dose Admin Acetaminophen 1,000 mg 10/13/24 12:09 10/13/24 12:13 Acetaminophen 500mg Tab PO 10/13/24 12:10 1,000 mg ONCE ONE Administration Ibuprofen 800 mg 10/13/24 12:09 10/13/24 12:14 Ibuprofen 800 Mg Tablet PO 10/13/24 12:10 800 mg ONCE ONE Administration Methocarbamol 500 mg 10/13/24 12:10 10/13/24 12:13 Methocarbamol 500mg Tablet PO 10/13/24 12:11 500 mg BID ONE Administration ORDERS Category Date Time Status CT head/brain wo con Stat Cat Scan 10/13/24 12:08 Completed Shoulder XR right miminum 2 views [XR shoulder RT min Exams 10/13/24 12:08 Completed 2V] Stat Medical Decision Narrative: In summary, this is a 54-year-old female with head and shoulder trauma. Differential diagnosis includes was not limited to, skull fracture, intracranial hemorrhage, shoulder vs clavicle fracture, closed head injury, among others. Given the mechanism of patient's injury, she will be evaluated with a CT head as well as x-ray of the right shoulder. Patient has no neurologic deficits or midline spinal tenderness to warrant additional imaging. Patient medically managed with Tylenol, ibuprofen, Robaxin. Based on history and exam, laboratory evaluation not indicated at this time. Patient's XR of her right shoulder personally reviewed by me and negative for acute fracture or malalignment. CT head also reviewed by me and negative for intracranial hemorrhage or acute infarct. Upon reevaluation, patient's symptoms had improved and patient was advised of symptomatic management at home. Patient also given information with regards to a concussion that she likely suffered due to the head trauma. Patient in agreement with plan and stable for discharge at this time. Nevaeh Pickens MD PGY-3, Emergency Medicine Critical Care Critical Care Time Critical Care Time: No
== END 2024-10-13 14:37 | disposition home or self-care (01) ==
PROVIDERS: Emergency Provider Student in an Organized Health Care Education/Training Program; PCP Physician Assistant
DX: S09.90XA Unspecified injury of head, initial encounter (principal); S49.91XA Unspecified injury of right shoulder and upper arm, initial encounter; M25.511 Pain in right shoulder; R51.9 Headache, unspecified; W20.1XXA Struck by object due to collapse of building, initial encounter; Y93.89 Activity, other specified; Y92.008 Other place in unspecified non-institutional (private) residence as the place of occurrence of the external cause
CPT/HCPCS: 70450; 73030; 99284

== ENCOUNTER 2024-11-08 14:32 | Emergency (ER) | payer MEDICARE, OTHER, SELFPAY ==
--- NOTE | 2024-11-08 14:37 | XR_ITS ---
FINAL REPORT CLINICAL HISTORY: Rt shoulder pain COMPARISON: 10/13/2024 FINDINGS: RIGHT SHOULDER Three views demonstrate no acute fracture or dislocation. There are mild hypertrophic changes at the acromioclavicular joint. The soft tissues are unremarkable. IMPRESSION: Degenerative changes without acute bony abnormality. Reviewed, Interpreted and Dictated by Ermias Gomez MD Transcribed by Fanny Lemus Authenticated and [facility]
--- NOTE | 2024-11-08 14:37 | XR_ITS ---
FINAL REPORT CLINICAL HISTORY: rt shoulder injury COMPARISON: 04/19/2021 FINDINGS: Two views of the right clavicle were obtained. There is no acute fracture or dislocation. There are mild hypertrophic changes at the acromioclavicular joint. There is no acute soft tissue abnormality. There is a linear calcific or ossific density arising from the undersurface of the distal clavicle probably related to ossification of the coracoclavicular ligament. IMPRESSION: Degenerative changes without acute abnormality identified. Reviewed, Interpreted and Dictated by Ermias Gomez MD Transcribed by Fanny Lemus Authenticated and [facility]
[2024-11-08 15:53] VITALS: BP 110/74; PULSE 98; RESP 18; TEMP 36.8; O2SAT 97; BMI 24.9
--- NOTE | 2024-11-08 15:56 | ED_ITS ---
Discharge Plan Disposition Patient Disposition: Home, Self-Care Condition: Good Prescriptions Prescriptions: No Action azathioprine 50 mg tablet 50 mg PO BID Qty: 180 1RF cholecalciferol (vitamin D3) [Vitamin D3] 50 mcg (2,000 unit) capsule 50 mcg PO DAILY Qty: 90 1RF Rx Instructions: TAKE ONE CAPSULE BY MOUTH EVERY DAY phenobarbital 32.4 mg tablet 32.4 mg PO DAILY Qty: 90 3RF phenytoin sodium extended 100 mg capsule See Rx Instructions .ROUTE .COMPLEX Qty: 180 3RF Dose Instruction: TAKE ONE CAPSULE BY MOUTH TWICE DAILY Rx Instructions: TAKE ONE CAPSULE BY MOUTH TWICE DAILY mecobalamin (vitamin B12) 5,000 mcg tablet,chewable 5,000 mcg PO DAILY Qty: 90 3RF Caplyta 10.5 mg capsule See Rx Instructions .ROUTE .COMPLEX Qty: 90 3RF Dose Instruction: TAKE ONE CAPSULE BY MOUTH EVERY DAY Rx Instructions: TAKE ONE CAPSULE BY MOUTH EVERY DAY omeprazole 20 mg capsule,delayed release(DR/EC) See Rx Instructions .ROUTE .COMPLEX Qty: 90 1RF Dose Instruction: TAKE ONE CAPSULE BY MOUTH EVERY DAY FOR acid reflux Rx Instructions: TAKE ONE CAPSULE BY MOUTH EVERY DAY FOR acid reflux pravastatin 20 mg tablet See Rx Instructions .ROUTE .COMPLEX Qty: 90 1RF Dose Instruction: TAKE ONE TABLET BY MOUTH EVERY DAY AT BEDTIME FOR cholesterol Rx Instructions: TAKE ONE TABLET BY MOUTH EVERY DAY AT BEDTIME FOR cholesterol methocarbamol 500 mg tablet 500 mg PO QID Qty: 120 0RF Referrals Follow up/Referrals: Neris Sy PA [Primary Care Provider] - See instructions Rolando Chavez DO [Staff Physician] - See instructions Activity Restrictions/Add. Instructions Additional Instructions/Restrictions: Rest the extremity for the next few days. Take tylenol or ibuprofen for pain. Follow up with Dr. Chavez (orthopedics). I put in a referral but you need to call his office and schedule an appointment. Follow up with your regular doctor. GO TO THE ER FOR ANY WORSENING SYMPTOMS Clinical Impressions Clinical Impression: Pain in right shoulder, Pain of right clavicle Instructions Patient Instructions: DI for Shoulder Pain Print Language Print Language: Indonesian Discharge ED Provider: Robbie Diggs [facility] General Stated complaint: AO from October. Knot on Collar Bone Mode of Arrival: Ambulatory Source of Information: Patient Limitations: No Limitations Time Seen by Provider: 11/08/24 15:56 Description of Symptoms (Recalled from Triage Doc. by RN): PT STATES SHE HAD A GUTTER FALL AND HIT HER R COLLARBONE ON 10/13/24, HAD IT XRAYED AND IT WAS NEGATIVE, STATES IN THE LAST 2-3 DAYS IT HAS CAUSED HER PAIN AGAIN AND NOTICED A KNOT IN THAT AREA HEENT Symptoms (Recalled from RN notes): No Resp Symptoms (Recalled from RN notes): No Skin Symptoms (Recalled from RN notes): No MS Symptoms (Recalled from RN notes): Yes Functional Status (Recalled from RN notes): WNL Related Data Previous Rx's ?Medication ?Instructions ?Recorded azathioprine 50 mg tablet 50 mg PO BID crohns #180 tabs 03/21/23 cholecalciferol (vitamin D3) 50 50 mcg PO DAILY Supplement #90 caps 03/21/23 mcg (2,000 unit) capsule (Vitamin D3) mecobalamin (vitamin B12) 5,000 5,000 mcg PO DAILY B 12 deficiency 10/23/23 mcg chewable tablet #90 tabs lumateperone 10.5 mg capsule See Rx Instructions .Route 04/20/24 (Caplyta) .COMPLEX #90 caps omeprazole 20 mg capsule,delayed See Rx Instructions .Route 07/01/24 release .COMPLEX #90 caps pravastatin 20 mg tablet See Rx Instructions .Route 07/01/24 .COMPLEX #90 tabs methocarbamol 500 mg tablet 500 mg PO QID #120 tabs 10/13/24 phenobarbital 32.4 mg tablet 32.4 mg PO DAILY seizures #90 tabs 10/22/24 phenytoin sodium extended 100 mg See Rx Instructions .Route 10/22/24 capsule .COMPLEX #180 caps Allergies Allergy/AdvReac Type Severity Reaction Status Date / Time No Known Allergies Allergy Verified 10/22/24 07:56 Worker's Comp Is this a Worker's Comp case?: No Is this an H Worker's Comp?: No Is this a [place] Worker's Comp?: No [facility] Disclaimer: The information contained in this section may have been updated after the patient was seen, as this information can be updated by other users. Medical History (Updated 11/08/24 @ 16:30 by Robbie Diggs APRN) Nocturnal hypoxemia On [facility] drug therapy Seizure Crohn disease Surgical History History of cholecystectomy History of colonoscopy History of tonsillectomy Family History Other Family history of Crohn's disease Social History Smoking Status: Never smoker alcohol intake: never substance use type: denies use current occupational status: disabled Travel in the last 8 weeks: None adopted: No caregiver/support person: No foster care: No household members: family housing: house lives independently: Yes marital status: single education level: high school special dayan needs: No agree to transfusion: No do you feel safe at home: Yes victim of physical abuse: No victim of emotional abuse: No victim of sexual abuse: No would you like helpful sources: No Have you lived/traveled outside US in past 30 days?: No Contact w/someone who lives/traveled outside US past 30 days?: No Exposure to someone with infectious disease in past 14 days?: No Do you have a fever (greater than 100.4 F or 38 C)?: No Have you tested positive for COVID-19: No Exposed to someone with COVID-19 in past 14 days?: No Do you have a sore throat?: No Do you have a cough?: No Do you have any weakness?: No Do you have any diarrhea?: No Are you experiencing any unusual bleeding?: No Do you have any muscle aches/pain?: No Do you have any abdominal pain?: No Are you experiencing loss of taste or smell?: No ROS Obtained: Yes All systems reviewed & no additional complaints except as documented Constitutional Constitutional: Denies chills and Denies fever(s) Eyes Eyes: Denies eye discharge ENT Ears, Nose, Mouth, and Throat: Denies dizziness, Denies otalgia and Denies sore throat Cardiovascular Cardiovascular: Denies chest pain Respiratory Respiratory: Denies shortness of breath, Denies chest congestion, Denies cough, Denies stridor and Denies wheezing Gastrointestinal Gastrointestingal: Denies nausea or vomiting Musculoskeletal Musculoskeletal: Reports system reviewed and no additional complaints, except as documented and Denies arthralgias Integumentary/Breasts Skin/Breast: Denies rash Neurologic Neurologic: Denies dizziness and Denies paresthesias Allergic/Immunologic Allergic/Immunologic: Denies wheezing Physical Exam General General appearance: alert and in no apparent distress Head Head exam: atraumatic, normocephalic and normal inspection Eye Eye exam: Present normal appearance, PERRL and EOMI ENT ENT exam: Present normal exam, normal oropharynx, mucous membranes moist, TM's normal bilaterally and normal external ear exam Neck Neck exam: Present normal inspection, full ROM and trachea midline; Absent meningismus or lymphadenopathy Chest Chest inspection: Present normal inspection and symmetric chest wall rise; Absent tenderness Respiratory Respiratory exam: Present normal lung sounds bilaterally; Absent respiratory distress Cardiovascular Cardiovascular exam: Present regular rate and normal rhythm; Absent JVD Abdominal Exam Abdominal exam: Present soft and normal bowel sounds; Absent distention, tenderness or guarding Extremities Exam Extremities exam: Present normal inspection, full ROM and normal capillary refill; Absent calf tenderness Back Exam Back exam: Present normal inspection; Absent tenderness Neurological Exam Neurological exam: Present alert and oriented X3 Psychiatric Psychiatric exam: Present normal affect and normal mood Skin Skin exam: Present warm, dry, intact and normal color Lymphatic Lymphatic Findings: no adenopathy Medical Decision Making Medical Records Medical records reviewed: No I reviewed the patient's medical records. Screening: Per USPSTF and CDC recommendations, given the prevalence of disease in our region, it is our hospital?s policy to screen for HIV and viral Hepatitis for all patients aged 18 and over and those with ongoing risk factors. Evan Inquiry Pt receiving controlled substance: No Vital Signs: 11/08/24 15:53 Temperature 98.2 F Temperature Source Oral Pulse Rate [Left Radial] 98 H Respiratory Rate 18 Blood Pressure [Right Arm] 110/74 Blood Pressure Mean [Right Arm] 86 Blood Pressure Source [Right Arm] Automatic Cuff Blood Pressure Position [Right Arm] Sitting 02 Sat by Pulse Oximetry 97 Oxygen Delivery Method Room Air Orders (Tests/Meds): ORDERS Category Date Time Status XR clavicle RT Stat Exams 11/08/24 14:37 Taken XR shoulder RT min 2V Stat Exams 11/08/24 14:37 Taken
[2024-11-08 16:35] VITALS: BP 110/74; PULSE 98; RESP 18; TEMP 36.8
== END 2024-11-08 16:35 | disposition home or self-care (01) ==
PROVIDERS: Emergency Provider Nurse Practitioner Family; PCP Physician Assistant
DX: M25.511 Pain in right shoulder (principal)
CPT/HCPCS: 73000; 73030; 99212; G0381

== ENCOUNTER → 2024-12-01 20:28 | Outpatient (CLI) | payer MEDICARE, OTHER, SELFPAY | LOC: SL 20:30 | PROVIDERS: PCP Physician Assistant; Visit Provider Specialist | DX: G47.33 Obstructive sleep apnea (adult) (pediatric) (principal); F32.A Depression, unspecified; R56.9 Unspecified convulsions; J01.90 Acute sinusitis, unspecified; G47.34 Idiopathic sleep related nonobstructive alveolar hypoventilation | CPT/HCPCS: 95810 ==

== ENCOUNTER 2024-12-15 13:49 | Outpatient (CLI) | payer MEDICARE, OTHER, SELFPAY ==
[2024-12-15 14:18] LABS: Basophils # 0.1 K/mm3 (0-0.2); Basophils % 0.6 % (0.1-2.0); Eosinophils # 0.3 K/mm3 (0.0-0.4); Eosinophils % 3.2 % (0.1-12.0); Hematocrit 38.9 % (37.0-47.0); Hemoglobin 13.3 g/dL (12.2-16.2); Lymphocytes # 0.9 K/mm3 (0.7-4.5); Lymphocytes % 10.6 % (10-50); Mean Corpuscular HGB Conc 34.2 g/dL (31.8-35.4); Mean Corpuscular Hemoglobin 33.3 pg (27.0-31.2); Mean Corpuscular Volume 97.3 fl (81-99); Mean Platelet Volume 9.1 fl (7.4-10.4); Monocytes # 0.6 K/mm3 (0.1-1.0); Monocytes % 6.4 % (1.7-9.3); Neutrophils # 6.9 K/mm3 (1.8-7.8); Platelet Count 447 K/mm3 (142-424); Red Cell Distribution Width 11.9 % (11.5-17.5); White Blood Count 8.7 K/mm3 (4.8-10.8)
[2024-12-15 14:55] LABS: Chloride 105 mmol/L (98-107)
[2024-12-15 14:56] LABS: Albumin Level 4.5 g/dl (3.5-5.0); Potassium 3.6 mmoL/L (3.5-5.1); Sodium 141 mmol/L (136-145)
[2024-12-15 14:58] LABS: Alanine Aminotransferase 18 U/L (12-78); Anion Gap 9.6 mEq/L (5-15); Aspartate Amino Transferase 23 U/L (14-36); Bilirubin,Total 0.2 mg/dl (0.2-1.3); Blood Urea Nitrogen 10 mg/dl (7-17); Carbon Dioxide 30 mmol/L (22.0-30.0); Estimated Glomerular Filt Rate 103 ml/min (>60); GFR (African American) 125 ML/MIN (>60)
[2024-12-15 14:59] LABS: Albumin/Globulin Ratio 1.7 (1.1-1.8); Alkaline Phosphatase 106 U/L (38-126); Calcium 10.4 mg/dl (8.4-10.2); Globulin 2.7 g/dL (1.3-3.2); Glucose 125 mg/dl (74-100); Total Protein,Serum 7.2 g/dl (6.3-8.2)
== END 2024-12-15 23:59 | disposition home or self-care (01) ==
LOC: LAB 13:51
PROVIDERS: PCP Physician Assistant; Visit Provider Physician Assistant
DX: Z51.81 Encounter for therapeutic drug level monitoring (principal); Z79.624 Long term (current) use of inhibitors of nucleotide synthesis
CPT/HCPCS: 36415; 80053; 85025

== ENCOUNTER 2025-03-14 14:52 | Outpatient (CLI) | payer MEDICARE, OTHER, SELFPAY ==
--- OUTSIDE RECORDS SUMMARY | 2025-03-14 15:00 | XMS_ITS | Encounter Summary ---
Author Organization Healthcare Address [address] [place] [address] Care Team Providers Care Freight Breaker Name Role Phone Giovanny Guzman MD Primary Care Provider [phone] Reason for Visit * Reason Comments Med Refill Encounter Details Date Type Department Care Team (Late st Contact Info) Description 04/20/2022 [facility] [address] [place] [address] [employer] PA [address] [place] [address] Crohn's disease of both small and large intestine without complication (CMS/HCC) (Primary Dx) Social History Tobacco Use Types Packs/Day Years Used Date Smoking Tobacco: Never Smokeless Tobacco: Never Alcohol Use Standard Drinks/Week Comments No 0 (1 standard drink = 0.6 oz pur e alcohol) PHQ-2 Answer Date Recorded Patient Health Questionnaire-2 Score 0 12/25/2021 Comments Unknown Sex and Gender Information Value Date Recorded Sex Assigned at Not on file Legal Sex Female 8:51 PM EDT Gender Identity Not on file Sexual Orientation Not on file documented as of this encounter Miscellaneous Notes * Telephone Encounter - Shabbir Ortega - 05/06/2022 12:28 PM EDT Routing refill request to appropriate in-basket for review. * Telephone Encounter - Tamela Fuller RN - 04/29/2022 10:54 AM EDT Spoke with patient's mother via phone 04/29/22-she is aware of need to complete additional labs. Labs will be faxed to [facility] and they will complete within 1-2 days. * Telephone Encounter - Tamela Fuller RN - 04/26/2022 1:23 PM EDT Lab results to be faxed from [facility] * Telephone Encounter - Suyapa Hsu RN - 04/22/2022 3:12 PM EDT Sent [employer] message to pt, to coordinate lab work for Azathioprine refill. Lab work orders placed in [employer]. Last lab work completed, per Epic, was 12/25/2021. * Telephone Encounter - Kassy Syed - 04/22/2022 8:00 AM EDT Per protocol, 1 medication(s), Azathiprine, has been refused due to: Refill not appropriate documented in this encounter Plan of Treatment Upcoming Encounters Date Type Department Care Team (Late st Contact Info) Description 05/03/2025 12:40 PM EDT Office Visit [facility] [address] [place] [address] [employer] PA [address] [place] [address] documented as of this encounter Visit Diagnoses Diagnosis Crohn's disease of both small and large intestine without complication (CMS/HCC)- Primary documented in this encounter Additional Health Concerns Assessment Noted Time A fall risk assessment has been complete d for the patient 12/25/2021 1:03 PM EDT documented as of this encounter Care Teams Freight Breaker Relationship Specialty Start Date End Date Giovanny Guzman MD [address] [place] [address] PCP - General 02/16/21 documented as of this encounter
--- OUTSIDE RECORDS SUMMARY | 2025-03-14 15:00 | XMS_ITS | Data Portability ---
Author Organization [facility] CARROL Anthony [facility] Address [address] [place] [address] [address] [place] [address] Assessment No assessment recorded. Plan of Treatment Reminders Order Date Submit Date Provider Last Modified By Organization Details Last Modified Time Details Appointments None record ed. Lab None record ed. Referral None record ed. Procedures None record ed. Surgeries None record ed. Imaging None record ed. Medication Orders None record ed. Patient TargetsNo targets recorded. Patient InstructionsNo instructions recorded. Reason for Referral None Reported. Procedures Surgical History Date Name Laterality Status Provider Name and Address Organization Details Recorded Time 2 Tympanogram completed MARIA LUISA SHIRLEYQUINTANA, AUD [address] [place], [address], [facility] 03/12/2022 09:58:04 2 Audiogram completed MARIA LUISACHU WATSONQUINTANA, AUD [address] [place], [address], [facility] 03/12/2022 09:57:56 Imaging Results None recorded. Procedure Notes None recorded. Medical Equipment None Reported. Medications Name Sig Start Date Stop Date Status Note LastModified by Organization Details LastModified Time cyanocobalam in (vit B-12) 1,000 mcg tablet active Not Available Not Available N ot Available azathioprine 50 mg tablet TAKE ONE TABLET BY MOUTH TWICE DAILY FOR crohns active Not Available Not Available No t Available phenytoin sodium extended 100 mg capsule TAKE ONE CAPSULE BY MOUTH TWICE DAILY active Not Available Not Available No t Available omeprazole 20 mg capsule,wanda yed release TAKE ONE CAPSULE BY MOUTH EVERY DAY FOR acid reflux active Not Available Not Available Not Available pravastatin 20 mg tablet TAKE ONE TABLET BY MOUTH EVERY DAY AT BEDTIME FOR cholesterol active Not Available Not Available Not Available phenobarbita l 32.4 mg tablet TAKE ONE TABLET BY MOUTH EVERY DAY FOR seizures active Not Available Not Available No t Available cholecalcife rol (vitamin D3) 50 mcg (2,000 unit) capsule TAKE ONE CAPSULE BY MOUTH EVERY DAY FOR supplement active Not Available Not Available N ot Available GaviLyte-G 236 gram-22.74 gram-6.74 gram-5.86 gram oral solution MIX DIRECTED AND DRINK 240 ML (8 OUNCES) BY MOUTH EVERY 10 MINUTES UNTIL FECAL EFFLUENT IS CLEAR OR OTHERWISE DIRECTED DO NOT EXCEED TOTAL VOLUME OF 4000 ML active Not Available Not Available No t Available Vitamin B-12 5,000 mcg sublingual tablet DISSOLVE ONE TABLET UNDER THE TONGUE ONCE DAILY active Not Available Not Available No t Available Vraylar 1.5 mg capsule TAKE ONE CAPSULE BY MOUTH EVERY DAY active Not Available Not Available No t Available Caplyta 10.5 mg capsule active Not Available Not Available N ot Available Vitals None Recorded Social History None recorded. Functional Status None recorded. Mental Status None recorded. Family History Nothing Reported. Medical History No medical history recorded. Gynecological HistoryNo gynecological history recorded. Obstetrics History GPAL:G 0 P 0 0 0 0 Past Encounters Encounter ID Performer Location Encounter Start Date Encounter Closed Date Diagnosis/Indication Diagnosis SNOMED-CT Code Diagnosis ICD10 Code Diagnosis Note [id number] [facility] CLOSED [address] [place] [address] 03/12/2022 09:09:00 03/12/2022 10:23:26 Mixed conductive and sensorineural hearing loss of right ear [id number] 9105 H90.A31 Sensorineu ral hearing loss in left ear [id number] 9109 H90.A22 [id number] [facility] REYNOLDS [facility] CLOSED [address] [place] [address] 06/06/2022 12:45:03 06/06/2022 14:49:16 [id number] [facility]W [facility] CLOSED [address] [place] [address] 08/06/2022 13:08:10 08/06/2022 13:29:28 [id number] MARIA LUISA RHODES, AUD [place] [facility] [address] [place] [address] 09/20/2022 16:06:51 09/20/2022 17:23:16 [id number] MARIA LUISA RHODES, [place]UD [place] [facility] [place] [facility] CLOSED [address] [place], [place] [address] 10/15/2022 15:33:21 10/15/2022 15:41:13 [id number] MARIA LUISA BLAIR NG, AUD [place] [facility] [place] [facility] CLOSED [address] [place], [place] [address] 11/26/2022 15:06:40 11/26/2022 16:01:38 [id number] MARIA LUISA RHODES, AUD [place] [facility] [place] [facility] CLOSED [address], [place] [address] 02/18/2023 15:47:52 02/18/2023 16:14:17 [id number] MARIA LUISA RHODES, AUD [place] [facility] [address] [place] [address] 03/26/2023 12:54:31 03/26/2023 14:01:48 [id number] MARIA LUISA RHODES, AUD [place] [facility] [address] [place] [address] 01/20/2024 13:10:18 01/20/2024 17:18:29 Health Concerns Section Related Observation LastModified by Organization Detai ls LastModified Time None Recorded Concern Status LastModified by Organization Details LastModified Time None Recorded Advance Directives Directive None Recorded Payers Insurance Date Sequence Insurance Name Policy Number Policy Steele Covered Member ID Steele Member ID Guarantor Name 01/05/2024 1 [place] Rosalba Patton [id number] Rosalba Patton 09/26/2023 1 [facility] (MEDICAID HMO) Rosalba Patton [id number] Rosalba Patton 09/26/2023 2 [employer] [facility] (MEDICAID HMO) Rosalba Patton [id number] Rosalba Patton OBGyn Episode No OBEpisode recorded.
--- OUTSIDE RECORDS SUMMARY | 2025-03-14 15:00 | XMS_ITS | Encounter Summary ---
Author Organization Healthcare Address [address] [place] [place] [address] Care Team Providers Care Assistant Housekeeping Manager Name Role Phone Giovanny Guzman MD Primary Care Provider [phone] Encounter Details Date Type Department Care Team (Late st Contact Info) Description 12/16/2024 Results Follow-Up [facility] Medicine Specialties [address] [place] [address] [employer] [facility] [address] [facility] [address] [place] [address] Social History Tobacco Use Types Packs/Day Years Used Date Smoking Tobacco: Never Passive Smoke Exposure: Never Smokeless Tobacco: Never Alcohol Use Standard Drinks/Week Comments No 0 (1 standard drink = 0.6 oz pur e alcohol) PHQ-2 Answer Date Recorded Patient Health Questionnaire-2 Score 0 04/27/2024 PHQ-2A Answer Date Recorded Patient Health Questionnaire-2 Score 0 08/05/2023 Comments Unknown Sex and Gender Information Value Date Recorded Sex Assigned at Not on file Legal Sex Female 8:51 PM EDT Gender Identity Not on file Sexual Orientation Not on file documented as of this encounter Plan of Treatment Upcoming Encounters Date Type Department Care Team (Late st Contact Info) Description 05/03/2025 12:40 PM EDT Office Visit [facility] Medicine Specialties [address] [place] [address] [employer], DORY [address] [facility] [address] [place] [address] documented as of this encounter Visit Diagnoses Not on filedocumented in this encounter Additional Health Concerns Assessment Noted Time A fall risk assessment has been complete d for the patient 04/27/2024 10:58 AM EDT A Body Mass Index follow-up plan has been documented for the patient 04/27/2024 11:52 AM EDT documented as of this encounter Care Teams Assistant Housekeeping Manager Relationship Specialty Start Date End Date Giovanny Guzman MD [address] [place] [address] PCP - General 02/16/21 documented as of this encounter
--- OUTSIDE RECORDS SUMMARY | 2025-03-14 15:00 | XMS_ITS | Clinical Summary ---
Author Organization [facility] Address [address] [place] [address] Care Team Providers Care Offset Press Operator Name Role Phone Giovanny Guzman MD Primary Care Provider [phone] Allergies No known active allergies Medications cholecalciferol (Vitamin D-3) 50 MCG (1999 UT) tablet TAKE ONE TABLET BY MOUTH DAILY 8 Active docusate sodium (Colace) 100 MG capsule TAKE ONE CAPSULE BY MOUTH TWICE DAILY NEEDED FOR CONSTIPATION 0 Active omeprazole (PriLOSEC) [address] capsule Take 1 capsule (20 mg) by mouth 1 (one) time each day. 1 Active ondansetron (Zofran) 4 MG tablet TAKE ONE TABLET BY MOUTH EVERY 8 HOURS NEEDED FOR NAUSEA AND VOMITING 0 Active PHENobarbital (Luminal) 32.4 MG tablet Take 1 tablet (32.4 mg) by mouth 1 (one) time each day. 1 Active phenytoin ER (Dilantin) 100 MG capsule TAKE 1 TAB TWICE DAILY 4 Active pravastatin (Pravachol) 40 MG tablet TAKE ONE TABLET BY MOUTH EVERY DAY AT BEDTIME FOR cholesterol 1 Active sodium phosphate (Fleets) 7-19 GM/118ML enema enema USE RECTALLY ONCE DAILY NEEDED CONSTIPATION 0 Active Caplyta 10.5 MG capsule Take 10.5 mg by mouth every other day. Active azaTHIOprine (Imuran) 50 MG tabletIndication s:Crohn's disease of both small and large intestine without complication (CMS/HCC) Take two tablets (100 mg) one time each day 180 tablet Active Active Problems Problem Noted Date Diagnosed Date Mild vitamin D deficiency 07/17/2015 Crohn's disease of large intestine without compl ication 11/17/2013 Gastro-esophageal reflux disease without esophag itis 11/17/2013 Encounters Date Type Department Care Team Description 12/17/2024 Refill [facility] Medicine Specialties [address] [place] [address] [employer] PA Crohn's disease of both small and large intestine without complication ([facility]) 12/16/2024 Results Follow-Up [facility] Medicine Specialties [facility] [address] [place] [address] [employer] PA 12/16/2024 Orders Only [facility] Medicine Specialties [address] [place] [address] [employer] PA Crohn's disease of both small and large intestine without complication ([facility]) (Primary Dx); Encounter for monitoring azathioprine therapy 12/16/2024 Orders Only [facility] Medicine Specialties [address] [place] [address] Tamela Fuller, RN Encounter for monitoring azathioprine therapy from Last 3 Months Immunizations Immunization Administration Dates Next Due Influenza, injectable, quadr ivalent, preservative free 07/15/2023,06/27/2022,09/04/2021,2017 [employer] COVID-19 Vac cine (Purple Cap) 12+ 01/10/2021 Pneumococcal 20-torri Conj Vaccine 12/31/2022 Family History Medical History Relation Name Comments Crohn's disease Father Relation Name Status Comments Father Social History Tobacco Use Types Packs/Day Years Used Date Smoking Tobacco: Never Passive Smoke Exposure: Never Smokeless Tobacco: Never Tobacco Cessation:Counseling Given: Not Answered Alcohol Use Standard Drinks/Week Comments No 0 [...] on file Sexual Orientation Not on file Last Filed Vital Signs Vital Sign Reading Time Taken Comments Blood Pressure 105/72 04/27/2024 11:01 AM EDT Pulse 87 04/27/2024 11:01 AM EDT Temperature 36.9 C (98.4 F) 04/27/2024 11:01 AM EDT Respiratory Rate 18 10/17/2021 12:3 0 PM EST Oxygen Saturation 97% 04/27/2024 11: 01 AM EDT Inhaled Oxygen Concentration - - Weight 57.1 kg (125 lb 14.1 oz) 024 11:01 AM EDT Height 147.3 cm (4' 10 ) 04/27/2024 11: 01 AM EDT Body Mass Index 26.31 04/27/2024 11:01 AM EDT Plan of Treatment Upcoming Encounters Date Type Department Care Team (Late st Contact Info) Description 05/03/2025 12:40 PM EDT Office Visit [facility] [address] [place] [address] [employer] PA [address] [place] [address] Health Maintenance Due Date Last Done Comments [facility]-HIV Screening 1968 [facility]-Hepatitis C Screening 1968 [facility]-Medicare Annual Wellness (AWV) 1970 [facility]-Infant/Child/Adol SDOH Screenings 1970 [facility]- SDOH Screenings 01/13/1986 [facility]-Adult SDOH Screenings 01/13/1986 [facility]-DTaP,Tdap,and Td Vaccines (1 - Tdap) 01/13/1987 [facility]-Hepatitis B Vaccines (1 of 3 - 19+ 3-dose series) 01/13/1987 [facility]-Zoster Vaccines (1 of 2) 01/13/1987 [facility]-Pap Smear 01/13/1989 [facility]-Cervical Cancer Screening 01/13/1998 [facility]-HPV/Cotest 01/13/1998 CT Colonography 01/13/2013 FIT-DNA 01/13/2013 FIT 01/13/2013 FOBT 01/13/2013 Sigmoidoscopy 01/13/2013 [facility]-Breast Cancer Screening 01/13/2018 NRO-CYAVE-65 Vaccine ( season) 2024 08/15/2022, 09/24/2021, 01/10/2021, Additional history exists [facility]-Depression Screening 04/27/2025 04/27/2024 [facility]-Influenza Vaccine (Season Ended) 2025 07/15/2023, 06/27/2022, 09/04/2021, Additional history exists Colonoscopy 07/05/2029 07/05/2019 [facility]-Colorectal Cancer Screening 07/05/2029 [facility]-Pneumococcal Vaccine: 50+ Years Completed 12/31/2022 [facility]-Obesity Intervention Completed 024, 08/05/2023, 06/27/2022 HPV Vaccines Aged Out No longer eligi ble based on patient's age to complete this topic [facility]-HIB Vaccines Aged Out No longer e ligible based on patient's age to complete this topic [facility]-Hepatitis A Vaccines Aged Out No longer eligible based on patient's age to complete this topic [facility]-IPV Vaccines Aged Out No longer e ligible based on patient's age to complete this topic [facility]-Rotavirus Vaccines Aged Out No lo nger eligible based on patient's age to complete this topic Procedures Procedure Name Priority Date/Time Associated Diagnosis Comments CBC WITH AUTO DIFFERENTIAL Routine 12/15/2024 Encounter for monitoring azathioprine therapy COMPREHENSIVE METABOLIC PANEL, PLASMA Routine 12/15/2024 Encounter for monitoring azathioprine therapy COLONOSCOPY 07/05/2019 from Last 3 Months or Most Recently Relevant to Health Maintenance Results * CBC and differential (12/15/2024) Blood Venous blood specimen / Unknown us [facility] BLOOD ORDER[facility]LES Final Result EXTERNAL LAB * Comprehensive metabolic panel (12/15/2024) Blood Venous blood specimen / Unknown [facility] BLO[facility] ORDER[facility] Final Result EXTERNAL LAB * COLONOSCOPY (07/05/2019) Anatomical Region Laterality Modality Endoscopy Narrative 07/05/2019 Ordered by an unspecified provider. Historical Provider GI PROCEDURE ORDERABLES F inal Result from Last 3 Months or Most Recently Relevant to Health Maintenance [place] [phone] [employer] Care Teams Offset Press Operator Relationship Specialty Start Date End Date Giovanny Guzman MD [address] [place] [address] [place] [address] PCP - General 02/16/21
--- OUTSIDE RECORDS SUMMARY | 2025-03-14 15:00 | XMS_ITS | Encounter Summary ---
Author Organization [facility] Address [address] [place] [address] Care Team Providers Care Encapsulator Name Role Phone Giovanny Guzman MD Primary Care Provider [phone] Reason for Visit * Reason Comments Med Refill Encounter Details Date Type Department Care Team (Late st Contact Info) Description 07/31/2021 Refill [facility] Medicine Specialties [address] [place] [address] [employer], PA [address] [facility] [address] [place] [address] Social History Tobacco Use Types Packs/Day Years Used Date Smoking Tobacco: Never Smokeless Tobacco: Never Alcohol Use Standard Drinks/Week Comments No 0 (1 standard drink = 0.6 oz pur e alcohol) PHQ-2 Answer Date Recorded Patient Health Questionnaire-2 Score 0 06/26/2021 Comments Unknown Sex and Gender Information Value Date Recorded Sex Assigned at Not on file Legal Sex Female 8:51 PM EDT Gender Identity Not on file Sexual Orientation Not on file documented as of this encounter Plan of Treatment Upcoming Encounters Date Type Department Care Team (Late st Contact Info) Description 05/03/2025 12:40 PM EDT Office Visit [facility] Medicine Specialties [address] [place] [address] [employer], PA [address] [place] [address] documented as of this encounter Visit Diagnoses Not on filedocumented in this encounter Additional Health Concerns Infection Onset Date Last Indicated Resolved Time COVID-19 Rule-Out 10/17/2021 10/17/2021 10/17/2021 10:52 AM EST Assessment Noted Time A fall risk assessment has been complete d for the patient 06/26/2021 10:40 AM EDT documented as of this encounter Care Teams Encapsulator Relationship Specialty Start Date End Date Giovanny Guzman MD [address] [place] [address] PCP - General 02/16/21 documented as of this encounter
--- OUTSIDE RECORDS SUMMARY | 2025-03-14 15:00 | XMS_ITS | Encounter Summary ---
Author Organization [facility] Address [address] [place] [address] Care Team Providers Care Jump Iron Machine Presser Name Role Phone Giovanny Guzman MD Primary Care Provider [phone] Reason for Visit * Reason Comments Med Refill Encounter Details Date Type Department Care Team (Late st Contact Info) Description 08/31/2021 Refill [facility] Medicine Specialties [address] [place] [address] [employer], PA [address] [facility] [address] [place] [address] Social History Tobacco Use Types [...] Description 05/03/2025 12:40 PM EDT Office Visit [facility] Medicine Specialties [address] [place] [address] [employer], PA [address] [place] [address] documented as of this encounter Visit Diagnoses Not on filedocumented in this encounter Additional Health Concerns Infection Onset Date Last Indicated Resolved Time COVID-19 Rule-Out 10/17/2021 10/17/2021 10/17/2021 10:52 AM EST Assessment Noted Time A fall risk assessment has been complete d for the patient 06/26/2021 10:40 AM EDT documented as of this encounter Care Teams Jump Iron Machine Presser Relationship Specialty Start Date End Date Giovanny Guzman MD [address] [place] [address] PCP - General 02/16/21 documented as of this encounter
[2025-03-14 15:39] LABS: Basophils % 0.4 % (0.1-2.0); Eosinophils # 0.3 Kmm3 (0.0-0.4); Eosinophils % 3.5 % (0.1-12.0); Hemoglobin 13.3 g/dL (12.2-16.2); Immature Granulocytes # 0.04 10^3uL; Immature Granulocytes % 0.4 %; Lymphocytes # 1.1 K/mm3 (0.7-4.5); Lymphocytes % 12.8 % (10-50); Mean Corpuscular HGB Conc 33.3 g/dL (31.8-35.4); Mean Corpuscular Hemoglobin 32.8 pg (27.0-31.2); Mean Corpuscular Volume 98.5 fl (81-99); Mean Platelet Volume 9.1 fl (7.4-10.4); Monocytes # 0.6 K/mm3 (0.1-1.0); Monocytes % 6.3 % (1.7-9.3); Neutrophils # 6.8 K/mm3 (1.8-7.8); Neutrophils % 76.6 % (37.0-80.0); Nucleated Red Blood Cells # 0 10^3/uL; Nucleated Red Blood Cells % 0 %; Platelet Count 401 K/mm3 (142-424); Red Blood Count 4.06 M/mm3 (4.20-5.40); Red Cell Distribution Width 11.9 % (11.5-17.5); Red Cell Distribution Width-SD 43.1 fL; White Blood Count 8.9 K/mm3 (4.8-10.8)
[2025-03-14 16:15] LABS: Chloride 105 mmol/L (98-107)
[2025-03-14 16:16] LABS: Albumin Level 4.1 g/dl (3.5-5.0); Potassium 4.2 mmoL/L (3.5-5.1); Sodium 140 mmol/L (136-145)
[2025-03-14 16:18] LABS: Alanine Aminotransferase 11 U/L (12-78); Aspartate Amino Transferase 19 U/L (14-36); Blood Urea Nitrogen 11 mg/dl (7-17); Estimated Glomerular Filt Rate 86 ml/min (>60); GFR (African American) 104 ML/MIN (>60)
[2025-03-14 16:19] LABS: Albumin/Globulin Ratio 1.3 (1.1-1.8); Alkaline Phosphatase 101 U/L (38-126); Anion Gap 7.2 mEq/L (5-15); Bilirubin,Total 0.1 mg/dl (0.2-1.3); Calcium 9.9 mg/dl (8.4-10.2); Carbon Dioxide 32 mmol/L (22.0-30.0); Globulin 3.1 g/dL (1.3-3.2); Glucose 122 mg/dl (74-100); Total Protein,Serum 7.2 g/dl (6.3-8.2)
== END 2025-03-14 23:59 | disposition home or self-care (01) ==
LOC: LAB 14:53
PROVIDERS: PCP Physician Assistant; Visit Provider Physician Assistant
DX: Z51.81 Encounter for therapeutic drug level monitoring (principal); K50.80 Crohn's disease of both small and large intestine without complications; Z79.624 Long term (current) use of inhibitors of nucleotide synthesis
CPT/HCPCS: 36415; 80053; 85025

== ENCOUNTER 2025-06-02 12:58 | Outpatient (CLI) | payer MEDICARE, OTHER, SELFPAY ==
--- OUTSIDE RECORDS SUMMARY | 2025-05-03 12:40 | XMS_ITS | Encounter Summary ---
Author Organization [facility] Address [address] [place] [id number] Care Team Providers Care Burner Technician Name Role Phone Giovanny Guzman MD Primary Care Provider [phone] Reason for Referral * Consultation (Routine) - Authorized Specialty Diagnoses / Procedures Referred By Renee porras Referred To Contact Diagnoses Crohn's disease of both small and large intestine without complication (CMS/HCC) [facility] [address] [address] Phone: tel: fax: Referral ID Status Reason Start Date Expiration Date V isits Requested Visits Authorized [id number] Authorized 05/03/2025 11/02/2026 1 1 * Imaging (Routine) - Authorized Specialty Diagnoses / Procedures Referred By Renee porras Referred To Contact Gastroenterology Diagnoses Crohn's disease of both small and large intestine without complication (CMS/HCC) Procedures Colonoscopy [facility] [address] [address] Phone: tel: fax: Referral ID Status Reason Start Date Expiration Date Visits Requested Visits Authorized [id number] Authorized Specialty Services Required 05/03/2025 11/02/2026 1 1 Reason for Visit * Reason Comments Crohn's Disease F/U Encounter Details Date Type Department Care Team (Late st Contact Info) Description 05/03/2025 12:40 PM EDT [facility] [address] [place] [address] [facility] [address] [place] [address] Crohn's disease of both small and large intestine without complication (CMS/HCC) (Primary Dx); Gastroesophageal reflux disease, unspecified whether esophagitis present; Encounter for monitoring long-term proton pump inhibitor therapy Social History Tobacco Use Types Packs/Day Years Used Date Smoking Tobacco: Never Passive Smoke Exposure: Never Smokeless Tobacco: Never Tobacco Cessation:Counseling Given: Not Answered Alcohol Use Standard Drinks/Week Comments No 0 (1 standard drink = 0.6 oz pur e alcohol) PHQ-2 Answer Date Recorded Patient Health Questionnaire-2 Score 0 05/03/2025 PHQ-2A Answer Date Recorded Patient Health Questionnaire-2 Score 0 08/05/2023 Comments Unknown Sex and Gender Information Value Date Recorded Sex Assigned at Not on file Legal Sex Female 8:51 PM EDT Gender Identity Not on file Sexual Orientation Not on file documented as of this encounter Last Filed Vital Signs Vital Sign Reading Time Taken Comments Blood Pressure 106/69 05/03/2025 12:55 PM EDT Pulse 86 05/03/2025 12:55 PM EDT Temperature 36.7 C (98 F) 05/03/2025 12:55 PM EDT Respiratory Rate - - Oxygen Saturation 98% 05/03/2025 12:55 PM EDT Inhaled Oxygen Concentration - - Weight 54.6 kg (120 lb 5.9 oz) 05/03/2025 12:55 PM EDT Height 147.3 cm (4' 10 ) 05/03/2025 12:55 PM EDT Body Mass Index 25.16 05/03/2025 12:55 PM EDT documented in this encounter Functional Status * Over the past 2 weeks, how often have you been bothered by any of the following problems? Question Answer Date of Assessment Author Little interest or pleasure in doing things Not at all 05/03/2025 12:59 PM EDT Martine Oconnell W Feeling down, depressed, or hopeless Not at all 05/03/2025 12:59 PM EDT Martine Oconnell W Patient Health Questionnaire -2 Score 0 05/03/2025 12:59 PM EDT Martine Oconnell W documented as of this encounter Miscellaneous Notes * Progress Notes - [facility] - 05/03/2025 12:40 PM EDT Subjective Patient ID: Rosalba Patton is a 55 y.o. female. Chief Complaint Patient presents with Crohn's Disease F/U HPI Ms. Patton is a very pleasant 55 year old female seen in clinic today for follow-up of Crohn's disease, which was diagnosed > 15 years ago. Diagnosis was made by Dr. Dorsey at [facility] when patient was experiencing symptoms of abdominal pain. She was initially treated with Apriso and azathioprine, but Apriso was discontinued by Dr. Loja in 2015 after colonoscopyindicated remission. Rosalba continues to take 100 mg/day of azathioprine and is feeling well. She denies any current abdominal pain. Rosalba is typically having one BM/day with occasional passage of blood noted on the tissue paper. She denies N/V, decreased appetite, unintentional weight loss, fevers and fatigue. She states acid reflux is well- controlled with omeprazole. She is a non-smoker. Colonoscopy from 09/18/2022 at [facility] reviewed and showed no evidence of active Crohn's disease. The following portions of the chart were reviewed this encounter and updated as appropriate: Tobacco Allergies Meds Problems Med Hx Surg Hx Fam Hx Review of Systems Constitutional: Negative for appetite change, chills, fatigue, fever and unexpected weight change. Gastrointestinal: Negative for abdominal pain, blood in stool, constipation, diarrhea, nausea and vomiting. All other systems reviewed and are negative. Objective Physical Exam Vitals reviewed. Constitutional: Appearance: Normal appearance. She is normal weight. HENT: Head: Normocephalic. Right Ear: External ear normal. Left Ear: External ear normal. Nose: Nose normal. Eyes: Conjunctiva/sclera: Conjunctivae normal. Cardiovascular: Rate and Rhythm: Normal rate and regular rhythm. Heart sounds: Normal heart sounds. Pulmonary: Effort: Pulmonary effort is normal. Breath sounds: Normal breath sounds. Abdominal: General: Abdomen is flat. Bowel sounds are normal. Palpations: Abdomen is soft. There is no mass. Tenderness: There is no abdominal tenderness. Musculoskeletal: General: Normal range of motion. Cervical back: Normal range of motion and neck supple. No tenderness. Lymphadenopathy: Cervical: No cervical adenopathy. Skin: General: Skin is warm and dry. Neurological: Mental Status: She is alert and oriented to person, place, and time. Psychiatric: Mood and Affect: Mood normal. Behavior: Behavior normal. Thought Content: Thought content normal. Judgment: Judgment normal. Assessment/Plan Assessment & Plan Crohn's disease of both small and large intestine without complication (CMS/HCC) - Symptoms well-controlled with 100 mg/day of azathioprine. However, will plan to transition treatment to vedolizumab given safer long-term side effect profile. Medication risks, benefits, and potential adverse effects discussed with patient and mom today including, but not limited to infusion reaction, hypersensitivity reaction, increased risk of infection, headache, and nasopharyngitis. Patientand mom vocalized understanding. - Continue azathioprine until initiation of vedolizumab and then stop. - Plan for routine labs today. - Will screen for hepatitis B and TB prior to initiation of biologic therapy. - Plan for fecal calprotectin to have as baseline prior to change in treatment. - No active IBD noted on colonoscopy as of 09/2022. Surveillance recommended in three years (due 09/2025). Procedure ordered today. - Recommend keeping all adult immunizations up-to-date. - Follow-up in 4 months or sooner if needed. Orders: Comprehensive Metabolic Panel, Plasma; Future C-Reactive Protein, Plasma; Future CBC and Differential; Future Hepatitis B surface antigen; Future Hepatitis B Surface Antibody, Quantitative; Future Quantiferon TB Gold; Future Colonoscopy; Future Calprotectin, Fecal by Immunoassay; Future Follow Up GI; Future Gastroesophageal reflux disease, unspecified whether esophagitis present - Well- controlled with omeprazole. Encounter for monitoring long-term proton pump inhibitor therapy Orders: Magnesium; Future Vitamin B12; Future documented in this encounter Plan of Treatment Upcoming Encounters Date Type Department Care Team (Late st Contact Info) Description 09/05/2025 2:00 PM EST [facility] [address] [place] [address] [facility] [address] [place] [address] Scheduled Orders Name Type Priority Associated Diagnoses Orde r Schedule Colonoscopy Endoscopy Routine Crohn's disease of both small and large intestine without complication (CMS/HCC) Expected: 05/03/2025, Expires: 11/03/2026 Scheduled Referrals Name Type Priority Associated Diagnoses Orde r Schedule Follow Up GI Outpatient Referral Routine Crohn's disease of both small and large intestine without complication (CMS/HCC) Expected: 09/03/2025, Expires: 06/03/2026 documented as of this encounter Results * (ABNORMAL) Calprotectin, Fecal by Immunoassay (05/03/2025 1:52 PM EDT) CALPROTECTIN >3000(H) <=49 ug/g 05/05/2025 8:30 PM EDT [facility] ([facility]) Stool Stool specimen / Unknown Non-blood Collection / Unknown 05/03/2025 1:52 PM EDT 05/03/2025 1:56 PM EDT Narrative [facility] ([facility]) - 05/05/2025 8:30 PM EDT REFERENCE INTERVAL: Calprotectin, Fecal by Immunoassay Less than 50 ug/g........Normal 50-120 ug/g..............Borderline elevated, test should be re-evaluated in 4-6 weeks. 121 ug/g or greater......Elevated Performed By: [facility] [address] [place] [id number] Staff Psychologist: Jamir Prakash MD, PhD CLIA Number: [id number] [facility] BODY FLUIDS AND STOOLS ORDERABLES Final Result [facility] ([employer]) [address] [place] [id number] * (ABNORMAL) Vitamin B12 (05/03/2025 1:48 PM EDT) [facility] Vitamin B12, Serum >2,000(H) 210 - 1,033 pg/mL 05/03/2025 4:[address] [facility] Blood Venous blood specimen / Unknown Venipuncture / Unknown 05/03/2025 1:48 PM EDT 05/03/2025 1:50 PM EDT us [facility] LAB BLOOD ORDERABLES Final Result [facility] [address] [place] [address] * Magnesium (05/03/2025 1:48 PM EDT) [facility] Magnesium, Plasma 2.1 1.9 - 2.4 mg/dL 05/03/2025 3:[address] [facility] Blood Venous blood specimen / Unknown Venipuncture / Unknown 05/03/2025 1:48 PM EDT 05/03/2025 1:50 PM EDT us [facility] LAB BLOOD ORDERABLES Final Result [facility] [address] [place] [address] * Quantiferon TB Gold (05/03/2025 1:48 PM EDT) [facility] Quantiferon TB Gold Plus Result Negative Negative 05/04/2025 5:[address] [facility] TB Nill Value 0.0602 IU/mL 05/04/2025 5:[address] [facility] TB Antigen 1 0.0113 IU/mL 05/04/2025 5:[address] [facility] TB Antigen 2 0.0194 IU/mL 05/04/2025 5:[address] [facility] TB Mitogen 9.9398 IU/mL 05/04/2025 5:41 PM EDT [facility] Blood Venous blood specimen / Unknown Venipuncture / Unknown 05/03/2025 1:48 PM EDT 05/03/2025 1:[address] [facility] - 05/04/2025 5:41 PM EDT Responses to the Mitogen positive control and occasionally to TB antigen can be above the assay range. For calculation purposes: IFN-gamma values > 10 IU/mL are handled as 10 IU/mL. us [facility] LAB BLOOD ORDERABLES Final Result Performing Organization Address [facility] Co de Phone Number [facility] [address] [place] [address] * Hepatitis B Surface Antibody, Quantitative (05/03/2025 1:48 PM EDT) Hepatitis B Surface Antibody, Quantitative <8.00 NonReactiv e: <8, Grayzone: 8 - <12, Reactive: >= 12 mIU/mL 05/03/2025 5:03 PM EDT [facility] Comment: Nonreactive. Individual is considered not immune to HBV infection. Blood Venous blood specimen / Unknown Venipuncture / Unknown 05/03/2025 1:48 PM EDT 05/03/2025 1:50 PM EDT us [facility] LAB BLOOD ORDERABLES Final Result Performing Organization Address [facility] Co de Phone Number [facility] [address] [place] [address] * Hepatitis B surface antigen (05/03/2025 1:48 PM EDT) Hepatitis B Surf Antigen Negative Negative 05/03/2025 5:03 PM EDT [facility] Blood Venous blood specimen / Unknown Venipuncture / Unknown 05/03/2025 1:48 PM EDT 05/03/2025 1:50 PM EDT us [facility] LAB BLOOD ORDERABLES Final Result Performing Organization Address City/[facility]/ZIP Co de Phone Number [facility] [address] [place] [address] * (ABNORMAL) CBC and Differential (05/03/2025 1:48 PM EDT) WBC Count 9.22 3.70 - 10.30 10*3/uL LAB HEMATOLOGY METHOD 05/03/2025 3:[address] [facility] RBC Count 4.10 3.90 - 5.20 10*6/uL LAB HEMATOLOGY METHOD 05/03/2025 3:[address] [facility] HGB 13.3 11.2 - 15.7 g/dL LAB HEMATOLOGY METHOD 05/03/2025 3:[address] [facility] HCT 40.8 34.0 - 45.0 % LAB HEMATOLOGY METHOD 05/03/2025 3:[address] [facility] Platelet Count 481(H) 155 - 369 10*3/uL LAB HEMATOLOGY METHOD 05/03/2025 3:[address] [facility] MCV 100(H) 79 - 98 fL LAB HEMATOLOGY METHOD 05/03/2025 3:[address] [facility] MCH 32.4(H) 26.0 - 32.0 pg LAB HEMATOLOGY METHOD 05/03/2025 3:[address] [facility] MCHC 32.6 30.7 - 35.5 g/dL LAB HEMATOLOGY METHOD 05/03/2025 3:[address] [facility] RDW 12.3 11.5 - 14.5 % LAB HEMATOLOGY METHOD 05/03/2025 3:[address] [facility] MPV 9.2 8.8 - 12.5 fL LAB HEMATOLOGY METHOD 05/03/2025 3:[address] [facility] nRBC 0.0 <=0.0 per 100 WBCs LAB HEMATOLOGY METHOD 05/03/2025 3:[address] [facility] Differential Type Automated LAB HEMATOLOGY METHOD 05/03/2025 3:[address] [facility] Neutrophils % 73 % LAB HEMATOLOGY METHOD 05/03/2025 3:[address] [facility] Lymphocytes % 10 % LAB HEMATOLOGY METHOD 05/03/2025 3:[address] [facility] Monocytes % 6 % LAB HEMATOLOGY METHOD 05/03/2025 3:[address] [facility] Eosinophils % 10 % LAB HEMATOLOGY METHOD 05/03/2025 3:[address] [facility] Basophils % 1 % LAB HEMATOLOGY METHOD 05/03/2025 3:[address] [facility] Immature Granulocytes % 0 % LAB HEMATOLOGY METHOD 05/03/2025 3:[address] [facility] Neutrophils Absolute 6.82(H) 1.60 - 6.10 10*3/uL LAB HEMATOLOGY METHOD 05/03/2025 3:[address] [facility] Lymphocytes Absolute 0.90(L) 1.20 - 3.90 10*3/uL LAB HEMATOLOGY METHOD 05/03/2025 3:[address] [facility] Monocytes Absolute 0.52 0.30 - 0.90 10*3/uL LAB HEMATOLOGY METHOD 05/03/2025 3:[address] [facility] Eosinophils Absolute 0.89(H) 0.00 - 0.50 10*3/uL LAB HEMATOLOGY METHOD 05/03/2025 3:[address] [facility] Basophils Absolute 0.06 0.00 - 0.10 10*3/uL LAB HEMATOLOGY METHOD 05/03/2025 3:[address] [facility] Immature Granulocytes Absolute 0.03 0.00 - 0.06 10*3/uL LAB HEMATOLOGY METHOD 05/03/2025 3:[address] [facility] Blood Venous blood specimen / Unknown Venipuncture / Unknown 05/03/2025 1:48 PM EDT 05/03/2025 1:50 PM EDT [facility] - 05/03/2025 3:14 PM EDT Therapeutic decision making should be based on absolute values, rather than percentages. [facility] BLOOD ORDERABLES Final Result [facility] [address] [place] [address] * C-Reactive Protein, Plasma (05/03/2025 1:48 PM EDT) CRP, Plasma 4.8 <=8.0 mg/L 05/03/2025 3:[address] [facility] Blood Venous blood specimen / Unknown Venipuncture / Unknown 05/03/2025 1:48 PM EDT 05/03/2025 1:[address] [facility] - 05/03/2025 3:06 PM EDT This CRP test is appropriate for assessment of infection, systemic inflammation and/or tissue injury. To assess cardiovascular disease risk order high sensitivity CRP (CRPH). us [facility] BLOOD ORDERABLES Final Result [facility] [address] [place] [address] * (ABNORMAL) Comprehensive Metabolic Panel, Plasma (05/03/2025 1:48 PM EDT) Glucose, Plasma 101(H) 74 - 99 mg/dL 05/03/2025 3:[address] [facility] BUN, Plasma 14 7 - 21 mg/dL 05/03/2025 3:[address] [facility] Creatinine, Plasma 0.67 0.60 - 1.10 mg/dL 05/03/2025 3:[address] [facility] BUN/Creatinine Ratio 21 05/03/2025 3:[address] [facility] Sodium, Plasma 142 136 - 145 mmol/L 05/03/2025 3:[address] [facility] Potassium, Plasma 4.1 3.6 - 4.9 mmol/L 05/03/2025 3:[address] [facility] Chloride, Plasma 106 97 - 107 mmol/L 05/03/2025 3:[address] [facility] CO2, Plasma 27 22 - 29 mmol/L 05/03/2025 3:[address] [facility] Anion Gap 9 6 - 16 mmol/L 05/03/2025 3:[address] [facility] Total Calcium, Plasma 9.5 8.9 - 10.2 mg/dL 05/03/2025 3:[address] [facility] Total Protein 7.6 6.3 - 7.9 g/dL 05/03/2025 3:[address] [facility] Albumin, Plasma 4.2 3.5 - 5.2 g/dL 05/03/2025 3:[address] [facility] AST, Plasma 16 10 - 35 U/L 05/03/2025 3:[address] [facility] ALT, Plasma 17 10 - 35 U/L 05/03/2025 3:[address] [facility] Alkaline Phosphatase, Plasma 121 46 - 142 U/L 05/03/2025 3:[address] [facility] Total Bilirubin, Plasma 0.3 0.2 - 1.1 mg/dL 05/03/2025 3:[address] [facility] eGFRcr 102.1 mL/min/1.7 3m*2 05/03/2025 3:[address] [facility] Comment:Reported eGFRcr in m L/min/1.73m2 is based the CKD-EPI 2020 equation that does not use a race coefficient. Blood Venous blood specimen / Unknown Venipuncture / Unknown 05/03/2025 1:48 PM EDT 05/03/2025 1:50 PM EDT [facility] BLOOD ORDERABLES Final Result [facility] [address] [place] [address] documented in this encounter Visit Diagnoses Diagnosis Crohn's disease of both small and large intestine without complication (CMS/HCC)- Primary Gastroesophageal reflux disease, unspecified whether esophagitis present Encounter for monitoring long-term proton pump inhibitor therapy documented in this encounter Additional Health Concerns Assessment Noted Time A fall risk assessment has been complete d for the patient 04/27/2024 10:58 AM EDT A Body Mass Index follow-up plan has been documented for the patient 05/03/2025 2:36 PM EDT documented as of this encounter Care Teams Burner Technician Relationship Specialty Start Date End Date Giovanny Guzman MD [address] [place] [address] PCP - General 02/16/21 documented as of this encounter
--- OUTSIDE RECORDS SUMMARY | 2025-06-02 13:02 | XMS_ITS | Encounter Summary ---
Author Organization Healthcare Address [address] [place] [address] Care Team Providers Care Mobile Qa Tester Name Role Phone Giovanny Guzman MD Primary Care Provider [phone] Reason for Visit * Reason Comments Med Refill Encounter Details Date Type Department Care Team (Late st Contact Info) Description 04/20/2022 Refill [place] [facility] [address] [place] [address] [facility] [address] [place] [address] Crohn's disease of both small [...] additional labs. Labs will be faxed to [facility] and they will complete within 1-2 days. * Telephone Encounter - Tamela Fuller RN - 04/26/2022 1:23 PM EDT Lab results to be faxed from [facility] * Telephone Encounter - Suyapa Hsu RN - 04/22/2022 3:12 PM EDT Sent [employer] message to pt, to coordinate lab work for Azathioprine refill. Lab work orders placed in [employer]. Last lab work completed, per Epic, was 12/25/2021. * Telephone Encounter - Kassy Syed - 04/22/2022 8:00 AM EDT Per protocol, 1 medication(s), Azathiprine, has been refused due to: Refill not appropriate documented in this encounter Plan of Treatment Upcoming Encounters Date Type Department Care Team (Late st Contact Info) Description 09/05/2025 2:00 PM EST Office Visit [facility] Specialties [address] [place] [address] [facility] [address] [place] [address] documented as of this encounter Visit Diagnoses Diagnosis Crohn's disease of both small and large intestine without complication (CMS/HCC)- Primary documented in this encounter Additional Health Concerns Assessment Noted Time A fall risk assessment has been complete d for the patient 12/25/2021 1:03 PM EDT documented as of this encounter Care Teams Mobile Qa Tester Relationship Specialty Start Date End Date Giovanny Guzman MD [address] [place] [id number] PCP - General 02/16/21 documented as of this encounter
--- OUTSIDE RECORDS SUMMARY | 2025-06-02 13:02 | XMS_ITS | Encounter Summary ---
Author Organization Healthcare Address [address] [place] [address] Care Team Providers Care Rolling Mill Plugger Name Role Phone Giovanny Guzman MD Primary Care Provider [phone] Encounter Details Date Type Department Care Team (Late st Contact Info) Description 05/03/2025 Orders Only [place] [facility] [address] [place] [address] [facility] [address] [place] [address] Crohn's disease of large intestine without complication (CMS/HCC) (Primary Dx); Crohn's disease without complication, unspecified gastrointestinal tract location (CMS/HCC) Social History Tobacco Use Types Packs/Day Years [...] on file documented as of this encounter Functional Status * Over the past 2 weeks, how often have you been bothered by any of the following problems? Question Answer Date of Assessment Author Little interest or pleasure in doing things Not at all 05/03/2025 12:59 PM EDT [place], Martine W Feeling down, depressed, or hopeless Not at all 05/03/2025 12:59 PM EDT Martine Oconnell Patient Health Questionnaire -2 Score 0 05/03/2025 12:59 PM EDT Martine Oconnell documented as of this encounter Plan of Treatment Upcoming Encounters Date Type Department Care Team (Late st Contact Info) Description 09/05/2025 2:00 PM EST Office Visit [place] [facility] [address] [place] [address] [facility] [address] [place] [address] documented as of this encounter Visit Diagnoses Diagnosis Crohn's disease of large intestine without complication (CMS/HCC)- Primary Crohn's disease without complication, unspecified gastrointestinal tract location (CMS/HCC) documented in this encounter Additional Health Concerns Assessment Noted Time A fall risk assessment has been complete d for the patient 04/27/2024 10:58 AM EDT A Body Mass Index follow-up plan has been documented for the patient 05/03/2025 2:36 PM EDT documented as of this encounter Care Teams Rolling Mill Plugger Relationship Specialty Start Date End Date Giovanny Guzman MD [address] [place] [address] PCP - General 02/16/21 documented as of this encounter
--- OUTSIDE RECORDS SUMMARY | 2025-06-02 13:02 | XMS_ITS | Clinical Summary ---
Author Organization [facility] Address [address] [place] [address] Care Team Providers Care Office Coordinator Receptionist Name Role Phone Giovanny Guzman MD Primary Care Provider [phone] Allergies No known active allergies Medications cholecalciferol [...] one time each day 180 tablet Active methocarbamol (Robaxin) 500 MG tablet TAKE ONE TABLET BY MOUTH FOUR TIMES DAILY MAY CAUSE DROWSINESS Active cariprazine (Vraylar) 1.5 MG capsule Take 1 capsule by mouth daily. 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 Medicine Specialties [address], [address] [place] [address] [phone] [employer] PA Crohn's disease of both small and large intestine without complication (CMS/HCC) (Primary Dx); Gastroesophageal reflux disease, unspecified whether esophagitis present; Encounter for monitoring long-term proton pump inhibitor therapy 05/03/2025 Results Follow-Up [facility] Medicine Specialties [address], [address] [place] [phone] [employer] PA 05/03/[address] [facility] Medicine Specialties [address], [address] [place] [address] [phone] Terrance Gallo, PharmD Entyvio 05/03/[address] [facility] Medicine Specialties [address], [address] [place] [address] [phone] [employer] PA Crohn's disease of large intestine without complication (CMS/HCC) (Primary Dx); Crohn's disease without complication, unspecified gastrointestinal tract location (CMS/HCC) 05/03/2025 Travel 03/18/2025 Results Follow-Up [place] [facility] [address], [address] [place] [phone] [employer] PA 03/18/[address] [facility] Medicine Specialties [address], [address]nd [place] [phone] [employer], DORY Crohn's disease of both small and large intestine without complication (CMS/HCC) 03/18/[address] [facility] Medicine Specialties [address], [address] [place] [phone] Suyapa Hsu, RN Crohn's disease of both small and large intestine without complication ([facility]); Encounter for monitoring azathioprine therapy from Last 3 Months Immunizations Immunization Administration Dates Next Due Influenza, injectable, quadr ivalent, preservative free 07/15/2023,06/27/2022,09/04/2021,2017 Pfizer-Adictiz COVID-19 Vac cine (Purple Cap) 12+ 01/10/2021 [...] F) 05/03/2025 12:55 PM EDT Respiratory Rate 18 10/17/2021 12:30 PM EST Oxygen Saturation 98% 05/03/2025 12:55 PM EDT Inhaled Oxygen Concentration - - Weight 54.6 kg (120 lb 5.9 oz) 05/03/2025 12:55 PM EDT Height 147.3 cm (4' 10 ) 05/03/2025 12:55 PM EDT Body Mass Index 25.16 05/03/2025 12:55 PM EDT Plan of Treatment Upcoming Encounters Date Type Department Care Team (Late st Contact Info) Description 09/05/2025 2:00 PM EST Office Visit [place] [facility] [address], [address] [place] [phone] [employer] PA [address] [place] [phone] Health Maintenance Due Date Last Done Comments [facility]-HIV Screening 1970 [facility]-Hepatitis C Screening 1968 [facility]-Medicare Annual Wellness (AWV) 1970 [facility]-/Child/Adol SDOH Screenings 1970 [facility]- SDOH Screenings 01/13/1986 [facility]-Adult SDOH Screenings 01/13/1986 [facility]-DTaP,Tdap,and Td Vaccines (1 - Tdap) 01/13/1987 [facility]-Hepatitis B Vaccines (1 of 3 - 19+ 3-dose series) 01/13/1987 [facility]-Zoster Vaccines (1 of 2) 01/13/1987 [facility]-Pap Smear 01/13/1989 [facility]-Cervical Cancer Screening 01/13/1998 [facility]-HPV/Cotest 01/13/1998 CT Colonography 01/13/2013 FIT-DNA 01/13/2013 FIT 01/13/2013 FOBT 01/13/2013 Sigmoidoscopy 01/13/2013 [facility]-Breast Cancer Screening 01/13/2018 [id number] Vaccine (6 - Pfizer risk season) 2025 07/08/2024, 08/15/2022, 09/24/2021, Additional history exists [facility]-Influenza Vaccine (#1) 06/06/202507/08, 07/15/2023, 06/27/2022, Additional history exists [facility]-Depression Screening 05/03/2026 05/03/2025 Colonoscopy 07/05/2029 07/05/2019 [facility]-Colorectal Cancer Screening 07/05/2029 [facility]-Pneumococcal Vaccine: 50+ Years Completed 12/31/2022 [facility]-Obesity Intervention Completed 025, 04/27/2024, 08/05/2023, Additional history exists HPV Vaccines Aged Out No longer eligi [...] Procedure Name Priority Date/Time Associated Diagnosis Comments CALPROTECTIN, FECAL BY IMMUNOASSAY (SO) Routine 05/03/2025 1:52 PM EDT Crohn's disease of both small and large intestine without complication (CMS/HCC) COMPREHENSIVE METABOLIC PANEL, PLASMA Routine 05/03/2025 1:48 PM EDT Crohn's disease of both small and large intestine without complication (CMS/HCC) C-REACTIVE PROTEIN, PLASMA Routine 05/03/2025 1:48 PM EDT Crohn's disease of both small and large intestine without complication (CMS/HCC) CBC WITH AUTO DIFFERENTIAL Routine 05/03/2025 1:48 PM EDT Crohn's disease of both small and large intestine without complication (CMS/HCC) HEPATITIS B SURFACE ANTIGEN Routine 05/03/2025 1:48 PM EDT Crohn's disease of both small and large intestine without complication (CMS/HCC) HEPATITIS B SURFACE ANTIBODY, QUANTITATIVE Routine 05/03/2025 1:48 PM EDT Crohn's disease of both small and large intestine without complication (CMS/HCC) QUANTIFERON TB GOLD PLUS Routine 05/03/2025 1:48 PM EDT Crohn's disease of both small and large intestine without complication (CMS/HCC) MAGNESIUM, PLASMA Routine 05/03/2025 1:4 8 PM EDT Encounter for monitoring long-term proton pump inhibitor therapy VITAMIN B12, SERUM Routine 05/03/2025 1: 48 PM EDT Encounter for monitoring long-term proton pump inhibitor therapy COMPREHENSIVE METABOLIC PANEL, PLASMA Routine 03/14/2025 Crohn's disease of both small and large intestine without complication (CMS/HCC) Encounter for monitoring azathioprine therapy CBC WITH AUTO DIFFERENTIAL Routine 03/14/2025 Crohn's disease of both small and large intestine without complication (CMS/HCC) Encounter for monitoring azathioprine therapy COLONOSCOPY 07/05/2019 from Last 3 Months or Most Recently Relevant to Health Maintenance Results * (ABNORMAL) Calprotectin, Fecal by Immunoassay (05/03/2025 1:52 PM EDT) CALPROTECTIN >3000(H) <=49 ug/g 05/05/2025 8:30 PM EDT [facility] ([facility]) Stool Stool specimen / Unknown Non-blood Collection / Unknown 05/03/2025 1:52 PM EDT 05/03/2025 1:56 PM EDT Narrative [facility] ([facility]) - 05/05/2025 8:30 PM EDT REFERENCE INTERVAL: Calprotectin, Fecal by Immunoassay Less than 50 ug/g........Normal 50-120 ug/g..............Borderline elevated, test should be re-evaluated in 4-6 weeks. 121 ug/g or greater......Elevated Performed By: [employer] [address] [place] [id number] Joinery Setter Out: Jamir Prakash MD, PhD CLIA Number: [id number] [facility] BODY FLUIDS AND STOOLS ORDERABLES Final Result [facility] ([facility]) [address] [place] [address] * Hepatitis B Surface Antibody, Quantitative (05/03/2025 1:48 PM EDT) [facility] Hepatitis B Surface Antibody, Quantitative <8.00 NonReactiv e: <8, Grayzone: 8 - <12, Reactive: >= 12 mIU/mL 05/03/2025 5:03 PM EDT [facility] Comment: Nonreactive. Individual is considered not immune to HBV infection. Blood Venous blood specimen / Unknown Venipuncture / Unknown 05/03/2025 1:48 PM EDT 05/03/2025 1:50 PM EDT [facility] BLOOD ORDERABLES Final Result [facility] [address] [place] [address] * Quantiferon TB Gold (05/03/2025 1:48 PM EDT) [facility] Quantiferon TB Gold Plus Result Negative Negative 05/04/2025 5:41 PM EDT [facility] TB Nill Value 0.0602 IU/mL 05/04/2025 5:41 PM EDT [facility] TB Antigen 1 0.0113 IU/mL 05/04/2025 5:41 PM EDT [facility] TB Antigen 2 0.0194 IU/mL 05/04/2025 5:41 PM EDT [facility] TB Mitogen 9.9398 IU/mL 05/04/2025 5:41 PM EDT [facility] Blood Venous blood specimen / Unknown Venipuncture / Unknown 05/03/2025 1:48 PM EDT 05/03/2025 1:50 PM EDT Narrative [facility] - 05/04/2025 5:41 PM EDT Responses to the Mitogen positive control and occasionally to TB antigen can be above the assay range. For calculation purposes: IFN-gamma values > 10 IU/mL are handled as 10 IU/mL. Bailey B Deneen PA LAB BLOOD ORDERABLES Final Result [facility] [address] [place] [address] * Hepatitis B surface antigen (05/03/2025 1:48 PM EDT) [facility] Hepatitis B Surf Antigen Negative Negative 05/03/2025 5:03 PM EDT [facility] Blood Venous blood specimen / Unknown Venipuncture / Unknown 05/03/2025 1:48 PM EDT 05/03/2025 1:50 PM EDT Bailey B [employer] PA LAB BLOOD ORDERABLES Final Result Performing Organization Address City/[facility]/ZIP Co de Phone Number [facility] [address] [place] [address] * (ABNORMAL) CBC and Differential (05/03/2025 1:48 PM EDT) Only the most recent of2 resultswithin the time period is included. [facility] WBC Count 9.22 3.70 - 10.30 10*3/uL LAB HEMATOLOGY METHOD 05/03/2025 3:14 PM EDT [facility] RBC Count 4.10 3.90 - 5.20 10*6/uL LAB HEMATOLOGY METHOD 05/03/2025 3:14 PM EDT [facility] HGB 13.3 11.2 - 15.7 g/dL LAB HEMATOLOGY METHOD 05/03/2025 3:14 PM EDT [facility] HCT 40.8 34.0 - 45.0 % LAB HEMATOLOGY METHOD 05/03/2025 3:14 PM EDT [facility] Platelet Count 481(H) 155 - 369 10*3/uL LAB HEMATOLOGY METHOD 05/03/2025 3:14 PM EDT [facility] MCV 100(H) 79 - 98 fL LAB HEMATOLOGY METHOD 05/03/2025 3:14 PM EDT [facility] MCH 32.4(H) 26.0 - 32.0 pg LAB HEMATOLOGY METHOD 05/03/2025 3:14 PM EDT [facility] MCHC 32.6 30.7 - 35.5 g/dL LAB HEMATOLOGY METHOD 05/03/2025 3:14 PM EDT [facility] RDW 12.3 11.5 - 14.5 % LAB HEMATOLOGY METHOD 05/03/2025 3:14 PM EDT [facility] MPV 9.2 8.8 - 12.5 fL LAB HEMATOLOGY METHOD 05/03/2025 3:14 PM EDT [facility] nRBC 0.0 <=0.0 per 100 WBCs LAB HEMATOLOGY METHOD 05/03/2025 3:14 PM EDT [facility] Differential Type Automated LAB HEMATOLOGY METHOD 05/03/2025 3:14 PM EDT [facility] Neutrophils % 73 % LAB HEMATOLOGY METHOD 05/03/2025 3:14 PM EDT [facility] Lymphocytes % 10 % LAB HEMATOLOGY METHOD 05/03/2025 3:14 PM EDT [facility] Monocytes % 6 % LAB HEMATOLOGY METHOD 05/03/2025 3:14 PM EDT [facility] Eosinophils % 10 % LAB HEMATOLOGY METHOD 05/03/2025 3:14 PM EDT [facility] Basophils % 1 % LAB HEMATOLOGY METHOD 05/03/2025 3:14 PM EDT [facility] Immature Granulocytes % 0 % LAB HEMATOLOGY METHOD 05/03/2025 3:14 PM EDT [facility] Neutrophils Absolute 6.82(H) 1.60 - 6.10 10*3/uL LAB HEMATOLOGY METHOD 05/03/2025 3:14 PM EDT [facility] Lymphocytes Absolute 0.90(L) 1.20 - 3.90 10*3/uL LAB HEMATOLOGY METHOD 05/03/2025 3:14 PM EDT [facility] Monocytes Absolute 0.52 0.30 - 0.90 10*3/uL LAB HEMATOLOGY METHOD 05/03/2025 3:14 PM EDT [facility] Eosinophils Absolute 0.89(H) 0.00 - 0.50 10*3/uL LAB HEMATOLOGY METHOD 05/03/2025 3:14 PM EDT [facility] Basophils Absolute 0.06 0.00 - 0.10 10*3/uL LAB HEMATOLOGY METHOD 05/03/2025 3:14 PM EDT [facility] Immature Granulocytes Absolute 0.03 0.00 - 0.06 10*3/uL LAB HEMATOLOGY METHOD 05/03/2025 3:14 PM EDT [facility] Blood Venous blood specimen / Unknown Venipuncture / Unknown 05/03/2025 1:48 PM EDT 05/03/2025 1:50 PM EDT Narrative [facility] - 05/03/2025 3:14 PM EDT Therapeutic decision making should be based on absolute values, rather than percentages. us Bailey B [employer] PA LAB BLOOD ORDERABLES Final Result Performing Organization Address [facility] Co de Phone Number [facility] [address] [place] [address] * C-Reactive Protein, Plasma (05/03/2025 1:48 PM EDT) CRP, Plasma 4.8 <=8.0 mg/L 05/03/2025 3:06 PM EDT [facility] Blood Venous blood specimen / Unknown Venipuncture / Unknown 05/03/2025 1:48 PM EDT 05/03/2025 1:50 PM EDT Narrative [facility] - 05/03/2025 3:06 PM EDT This CRP test is appropriate for assessment of infection, systemic inflammation and/or tissue injury. To assess cardiovascular disease risk order high sensitivity CRP (CRPH). us Bailey B StOPE [employer] PA LAB BLOOD ORDERABLES Final Result Performing Organization Address City/[facility] Co de Phone Number [facility] [address] [place] [address] * Magnesium (05/03/2025 1:48 PM EDT) Magnesium, Plasma 2.1 1.9 - 2.4 mg/dL 05/03/2025 3:06 PM EDT [facility] Blood Venous blood specimen / Unknown Venipuncture / Unknown 05/03/2025 1:48 PM EDT 05/03/2025 1:50 PM EDT us Bailey B [employer] PA LAB BLOOD ORDERABLES Final Result [facility] [address] [place] [address] * (ABNORMAL) Vitamin B12 (05/03/2025 1:48 PM EDT) [facility] Vitamin B12, Serum >2,000(H) 210 - 1,033 pg/mL 05/03/2025 4:29 PM EDT [facility] Blood Venous blood specimen / Unknown Venipuncture / Unknown 05/03/2025 1:48 PM EDT 05/03/2025 1:50 PM EDT [facility] LAB BLOOD ORDERABLES Final Result Performing Organization Address City/[facility]/ZIP Co de Phone Number [facility] [address] [place] [address] * (ABNORMAL) Comprehensive Metabolic Panel, Plasma (05/03/2025 1:48 PM EDT) Only the most recent of2 resultswithin the time period is included. [facility] Glucose, Plasma 101(H) 74 - 99 mg/dL 05/03/2025 3:06 PM EDT [facility] BUN, Plasma 14 7 - 21 mg/dL 05/03/2025 3:06 PM EDT [facility] Creatinine, Plasma 0.67 0.60 - 1.10 mg/dL 05/03/2025 3:06 PM EDT [facility] BUN/Creatinine Ratio 21 05/03/2025 3:06 PM EDT [facility] Sodium, Plasma 142 136 - 145 mmol/L 05/03/2025 3:06 PM EDT [facility] Potassium, Plasma 4.1 3.6 - 4.9 mmol/L 05/03/2025 3:06 PM EDT [facility] Chloride, Plasma 106 97 - 107 mmol/L 05/03/2025 3:06 PM EDT [facility] CO2, Plasma 27 22 - 29 mmol/L 05/03/2025 3:06 PM EDT [facility] Anion Gap 9 6 - 16 mmol/L 05/03/2025 3:06 PM EDT [facility] Total Calcium, Plasma 9.5 8.9 - 10.2 mg/dL 05/03/2025 3:06 PM EDT [facility] Total Protein 7.6 6.3 - 7.9 g/dL 05/03/2025 3:06 PM EDT [facility] Albumin, Plasma 4.2 3.5 - 5.2 g/dL 05/03/2025 3:06 PM EDT [facility] AST, Plasma 16 10 - 35 U/L 05/03/2025 3:06 PM EDT [facility] ALT, Plasma 17 10 - 35 U/L 05/03/2025 3:06 PM EDT [facility] Alkaline Phosphatase, Plasma 121 46 - 142 U/L 05/03/2025 3:06 PM EDT [facility] Total Bilirubin, Plasma 0.3 0.2 - 1.1 mg/dL 05/03/2025 3:06 PM EDT [facility] eGFRcr 102.1 mL/min/1.7 3m*2 05/03/2025 3:06 PM EDT [facility] Comment:Reported eGFRcr in m L/min/1.73m2 is based the CKD-EPI 2020 equation that does not use a race coefficient. Blood Venous blood specimen / Unknown Venipuncture / Unknown 05/03/2025 1:48 PM EDT 05/03/2025 1:50 PM EDT [facility] LAB BLOOD ORDERABLES Final Result [facility] [address] [place] [address] * COLONOSCOPY (07/05/2019) Anatomical Region Laterality Modality Endoscopy Narrative 07/05/2019 Ordered by an unspecified provider. Historical Provider GI PROCEDURE ORDERABLES Nella l Result from Last 3 Months or Most Recently Relevant to Health Maintenance Insurance MEDICARE [employer] MEDICAID Care Teams Office Coordinator Receptionist Relationship Specialty Start Date End Date Giovanny Guzman MD [address] [place] [address] RUSS Mccoy [id number] PCP - General 02/16/21
--- OUTSIDE RECORDS SUMMARY | 2025-06-02 13:02 | XMS_ITS | Encounter Summary ---
Author Organization Healthcare Address [address] [place] [address] Care Team Providers Care Disability Specialist Name Role Phone Giovanny Guzman MD Primary Care Provider [phone] Encounter Details Date Type Department Care Team (Late st Contact Info) Description 05/03/2025 Results Follow-Up [facility] Medicine Specialties [address], [address] [place] [phone] [employer] PA [address] [place] [phone] Social History Tobacco Use Types [...] all 05/03/2025 12:59 PM EDT Martine Oconnell Feeling down, depressed, or hopeless Not at all 05/03/2025 12:59 PM EDT Martine Oconnell Patient Health Questionnaire -2 Score 0 05/03/2025 12:59 PM EDT Martine Oconnell documented as of this encounter Plan of Treatment Upcoming Encounters Date Type Department Care Team (Late st Contact Info) Description 09/05/2025 2:00 PM EST Office Visit [facility] [address], [address] [place] [phone] [employer] PA [address] [place] [phone] documented as of this encounter Visit Diagnoses Not on filedocumented in this encounter Additional Health Concerns Assessment Noted Time A fall risk assessment has been complete d for the patient 04/27/2024 10:58 AM EDT A Body Mass Index follow-up plan has been documented for the patient 05/03/2025 2:36 PM EDT documented as of this encounter Care Teams Disability Specialist Relationship Specialty Start Date End Date Giovanny Guzman MD [address] [place] [address] PCP - General 02/16/21 documented as of this encounter
--- OUTSIDE RECORDS SUMMARY | 2025-06-02 13:02 | XMS_ITS | Encounter Summary ---
Author Organization Healthcare Address [address] [place] [address] Care Team Providers Care Tufting Creeler Name Role Phone Giovanny Guzman MD Primary Care Provider [phone] Encounter Details Date Type Department Care Team (Latest Contact Info) Description 05/03/2025 Travel Social History Tobacco Use Types Packs/Day Years [...] Oconnell W documented as of this encounter Plan of Treatment Upcoming Encounters Date Type Department Care Team (Late st Contact Info) Description 09/05/2025 2:00 PM EST Office Visit [facility] [address], [address] [place] [phone] [employer], DORY [address] [place] [address] documented as of this encounter Visit Diagnoses Not on filedocumented in this encounter Additional Health Concerns Assessment Noted Time A fall risk assessment has been complete d for the patient 04/27/2024 10:58 AM EDT A Body Mass Index follow-up plan has been documented for the patient 05/03/2025 2:36 PM EDT documented as of this encounter Care Teams Tufting Creeler Relationship Specialty Start Date End Date Giovanny Guzman MD [address] [place] [address] PCP - General 02/16/21 documented as of this encounter
--- OUTSIDE RECORDS SUMMARY | 2025-06-02 13:02 | XMS_ITS | Encounter Summary ---
Author Organization Healthcare Address [address] [place] [address] Care Team Providers Care Launchman Name Role Phone Giovanny Guzman MD Primary Care Provider [phone] Encounter Details Date Type Department Care Team (Late st Contact Info) Description 03/18/2025 Results Follow-Up [facility] Medicine Specialties [address], [address] [place] [address] [employer] PA [address] [place] [address] Social History Tobacco Use Types [...] Description 09/05/2025 2:00 PM EST Office Visit [facility] [address], [address] [place] [address] [employer] PA [address] [place] [phone] documented as of this encounter Visit Diagnoses Not on filedocumented in this encounter Additional Health Concerns Assessment Noted Time A fall risk assessment has been complete d for the patient 04/27/2024 10:58 AM EDT A Body Mass Index follow-up plan has been documented for the patient 04/27/2024 11:52 AM EDT documented as of this encounter Care Teams Launchman Relationship Specialty Start Date End Date Giovanny Guzman MD [address] [place] [address] PCP - General 02/16/21 documented as of this encounter
--- OUTSIDE RECORDS SUMMARY | 2025-06-02 13:02 | XMS_ITS | Encounter Summary ---
Author Organization [facility] Address [address] [place] [address] Care Team Providers Care Shoemaking Finisher Name Role Phone Giovanny Guzman MD Primary Care Provider [phone] Reason for Visit * Reason Comments Med Refill Encounter Details Date Type Department Care Team (Late st Contact Info) Description 08/31/2021 Refill [facility] Medicine Specialties [address] [place] [address] [employer], PA [address] [facility] [address] [place] [address] Social History Tobacco Use Types [...] Description 09/05/2025 2:00 PM EST Office Visit [facility] Medicine Specialties [address], [address] [place] [address] [employer], PA [address] [place] [address] documented as of this encounter Visit Diagnoses Not on filedocumented in this encounter Additional Health Concerns Infection Onset Date Last Indicated Resolved Time COVID-19 Rule-Out 10/17/2021 10/17/2021 10/17/2021 10:52 AM EST Assessment Noted Time A fall risk assessment has been complete d for the patient 06/26/2021 10:40 AM EDT documented as of this encounter Care Teams Shoemaking Finisher Relationship Specialty Start Date End Date Giovanny Guzman MD [address] [place] [address] PCP - General 02/16/21 documented as of this encounter
--- OUTSIDE RECORDS SUMMARY | 2025-06-02 13:02 | XMS_ITS | Encounter Summary ---
Author Organization Healthcare Address [address] [place] [place] [address] Care Team Providers Care Eyeglass Lens Cutter Name Role Phone Giovanny Guzman MD Primary Care Provider [phone] Reason for Visit * Reason Onset Date Comments Entyvio 05/03/2025 Encounter Details Date Type Department Care Team (Late st Contact Info) Description 05/03/2025 Telephone [facility] Medicine Specialties [address] [place] [id number] Terrance Gallo, PharmD Entyvio Social History Tobacco Use Types Packs/Day Years [...] encounter Miscellaneous Notes * Telephone Encounter - Suyapa Hsu RN - 05/25/2025 7:18 AM EDT Reviewed pt's chart: - Per second MyChart message encounter, pt is scheduled for first Entyvio infusion on 06/02/2025. * Telephone Encounter - Teresa Garay, PharmFred - 05/06/2025 1:51 PM EDT Patient has been approved to receive infusion treatment at outside facility. SP will follow up with facility to make sure patient has been scheduled and received first dose. Specialty Medication: Entyvio Filling [facility] * Telephone Encounter - Roseanne Montoya CPhT - 05/06/2025 12:32 PM EDT Infusion Authorization Not Required Specialty Medication: Entyvio J-Code/CPT Code/S-Code: J3380 Quantity and Units of Measure Reviewed: QS Diagnosis Code: K50.10 and K50.90 [facility] [place] Where did you submit request and how (portal/fax/phone number): Availity Reference Number: NA Follow-Up Phone Number: NA Filling [facility]acy[facility]: [facility] Will review auth status in 3 months. * Telephone Encounter - Roseanne Montoya CPhT - 05/06/2025 12:29 PM EDT Medicare B/Advantage Plan Authorization Information Specialty Medication: Entyvio Diagnosis Code: K50.10 and K50.90 J-code/CPT code/S code: J3380 Covered by Medicare B: No Does the diagnosis, dose, and frequency match an FDA approved dosing schedule? Yes, list prescribeddose/frequency: 300mg weeks 0, 2, 6 then every 8 weeks Site of Care: [facility] Does patient have an Advantage Plan? No. Will review in 12 months. * Telephone Encounter - Laure Bond PharmD - 05/06/2025 12:06 PM EDT [facility] has received therapy plan for medication Entyvio. [facility] has contacted the patient and are in the process of completing the authorization for preferred site of care, [facility] . [facility] Specialty Education Summary Patient's mother was assessed via phone for initiation of drug therapy Entyvio for diagnosis Crohn's Disease. Plan for administration of therapy in infusion center and planned date of initiation: pending auth. Anticipated filling pharmacy is [facility]. Education and Counseling Medication specific education provided: Discussion with patient included (but was not limited to): dosage, administration, duration, frequency, potential side effects, contraindications, safety and handling precautions, adherence and missed dose management, drug/drug interactions (if applicable) and storage & disposal. The patient has communicated understanding and had no further questions. Patient specific/therapeutic goal(s) of therapy: Tolerate therapy and achieve remission. Summary/Plan Pharmacist reviewed patient chart for allergies and current medication list, comorbidities, relevant medical history, potential barriers to care and mitigation of those barriers, if applicable. Therapy is clinically appropriate given patient's condition. Any available financial resources were discussed with patient and utilized if appropriate. Patient has no other identified problems or needs at this time as it pertains to this specialty medication. Laure Bond PharmD 05/06/25 12:06 PM * Telephone Encounter - Terrance Gallo PharmD - 05/03/2025 2:53 PM EDT ----- Message from DORY Garcia sent at 05/03/2025 2:37 PM EDT ----- Regarding: Entyvio start Please work on approval for vedolizumab. Please contact patient's mom for medication education. Patient would prefer IV vedolizumab and would like infusions to be arranged at [facility]. Thanks! documented in this encounter Plan of Treatment Upcoming Encounters Date Type Department Care Team (Late st Contact Info) Description 09/05/2025 2:00 PM EST Office Visit [facility] Medicine Specialties [address], [address] [place] [address] [employer], [place] [address] [place] [address] documented as of this encounter Visit Diagnoses Not on filedocumented in this encounter Additional Health Concerns Assessment Noted Time A fall risk assessment has been complete d for the patient 04/27/2024 10:58 AM EDT A Body Mass Index follow-up plan has been documented for the patient 05/03/2025 2:36 PM EDT documented as of this encounter Care Teams Eyeglass Lens Cutter Relationship Specialty Start Date End Date Giovanny Guzman MD [address] [place] [address] PCP - General 02/16/21 documented as of this encounter
--- OUTSIDE RECORDS SUMMARY | 2025-06-02 13:02 | XMS_ITS | Encounter Summary ---
Author Organization [facility] Address [address] [place] [address] Care Team Providers Care Marshmallow Machine Operator Name Role Phone Giovanny Guzman MD Primary Care Provider [phone] Reason for Visit * Reason Comments Med Refill Encounter Details Date Type Department Care Team (Late st Contact Info) Description 07/31/2021 Refill [facility] Medicine Specialties [address], [address] [place] [address] [employer], [place] [address] [facility] [address] [place] [address] Social History Tobacco Use Types [...] Description 09/05/2025 2:00 PM EST Office Visit [facility] Medicine Specialties [address], [address] [place] [address] [employer], [place] [address] [place] [address] documented as of this encounter Visit Diagnoses Not on filedocumented in this encounter Additional Health Concerns Infection Onset Date Last Indicated Resolved Time COVID-19 Rule-Out 10/17/2021 10/17/2021 10/17/2021 10:52 AM EST Assessment Noted Time A fall risk assessment has been complete d for the patient 06/26/2021 10:40 AM EDT documented as of this encounter Care Teams Marshmallow Machine Operator Relationship Specialty Start Date End Date Giovanny Guzman MD [address] [place] [address] PCP - General 02/16/21 documented as of this encounter
[2025-06-02 13:50] LABS: Hematocrit 36.8 % (37.0-47.0); Hemoglobin 12.4 g/dL (12.2-16.2); Immature Granulocytes % 0.4 %; Mean Corpuscular HGB Conc 33.7 g/dL (31.8-35.4); Mean Corpuscular Hemoglobin 33.3 pg (27.0-31.2); Mean Corpuscular Volume 98.9 fl (81-99); Nucleated Red Blood Cells % 0 %; Platelet Count 390 K/mm3 (142-424); Red Blood Count 3.72 M/mm3 (4.20-5.40); Red Cell Distribution Width-SD 44.6 fL; White Blood Count 6.8 K/mm3 (4.8-10.8)
[2025-06-02 13:54] LABS: Albumin Level 4.0 g/dl (3.5-5.0); Chloride 109 mmol/L (98-107)
[2025-06-02 13:55] VITALS: BP 106/76; PULSE 92; RESP 16; TEMP 36.6; O2SAT 98
[2025-06-02 13:55] LABS: Potassium 3.9 mmoL/L (3.5-5.1); Sodium 141 mmol/L (136-145)
[2025-06-02] MEDS: SODIUM CHLORIDE 0.9% 10ML FLUSH SYRINGE 10 ML IV (13:55)
[2025-06-02] MEDS: VEDOLIZUMAB 300 MG in 0.9 % SODIUM CHLORIDE 250 ML 500 MG IV (13:55)
[2025-06-02 13:57] LABS: Alanine Aminotransferase 9 U/L (12-78); Anion Gap 8.9 mEq/L (5-15); Aspartate Amino Transferase 22 U/L (14-36); Blood Urea Nitrogen 12 mg/dl (7-17); Carbon Dioxide 27 mmol/L (22.0-30.0); Creatinine,Serum 0.70 mg/dl (0.52-1.04); Estimated Glomerular Filt Rate 86 ml/min (>60); GFR (African American) 104 ML/MIN (>60)
[2025-06-02 13:58] LABS: Albumin/Globulin Ratio 1.3 (1.1-1.8); Alkaline Phosphatase 87 U/L (38-126); Bilirubin,Total 0.2 mg/dl (0.2-1.3); Calcium 8.7 mg/dl (8.4-10.2); Globulin 3.2 g/dL (1.3-3.2); Glucose 114 mg/dl (74-100); Total Protein,Serum 7.2 g/dl (6.3-8.2)
[2025-06-02 14:04] LABS: C-Reactive Protein 0.9 mg/L (0-4)
[2025-06-02 14:45] VITALS: BP 111/71; PULSE 83; RESP 16; TEMP 36.6; O2SAT 99
== END 2025-06-02 14:45 | disposition home or self-care (01) ==
LOC: INF 13:00
PROVIDERS: PCP Physician Assistant; Visit Provider Physician Assistant
DX: K50.10 Crohn's disease of large intestine without complications (principal)
CPT/HCPCS: 80053; 85025; 86140; 96365; J3380; J7050

== ENCOUNTER 2025-06-16 12:59 | Outpatient (CLI) | payer MEDICARE, OTHER, SELFPAY ==
--- OUTSIDE RECORDS SUMMARY | 2025-05-03 12:40 | XMS_ITS | Encounter Summary ---
Author Organization [facility] Address [address] [place] [id number] Care Team Providers Care Mix Mill Tender Name Role Phone Giovanny Guzman MD Primary Care Provider [phone] Reason for Referral * Consultation (Routine) - Authorized Specialty Diagnoses / Procedures Referred By Renee porras Referred To Contact Diagnoses Crohn's disease of both small and large intestine without complication (CMS/HCC) [facility] [address] [address] Phone: tel: fax: Referral ID Status Reason Start Date Expiration Date V isits Requested Visits Authorized [id number] Authorized 05/03/2025 11/02/2026 1 1 * Imaging (Routine) - Authorized Specialty Diagnoses / Procedures Referred By Renee porras Referred To Contact Gastroenterology Diagnoses Crohn's disease of both small and large intestine without complication (CMS/HCC) Procedures Colonoscopy [facility] [address] [address] Phone: tel: fax: Referral ID Status Reason Start Date Expiration Date Visits Requested Visits Authorized [id number] Authorized Specialty Services Required 05/03/2025 11/02/2026 1 1 Reason for Visit * Reason Comments Crohn's Disease F/U Encounter Details Date Type Department Care Team (Late st Contact Info) Description 05/03/2025 12:40 PM EDT Office Visit [place] [facility] [address] [place] [address] [facility] [address] [place] [address] Crohn's disease of both small [...] Diagnosis was made by Dr. Dorsey at [facility] when patient was experiencing symptoms of [...] is a non-smoker. Colonoscopy from 09/18/2022 at [facility] reviewed and showed no evidence of [...] Description 09/05/2025 2:00 PM EST Office Visit [place] [facility] [address] [place] [address] [facility] [address] [place] [address] Scheduled Orders Name Type Priority [...] >3000(H) <=49 ug/g 05/05/2025 8:30 PM EDT [facility] ([facility]) Stool Stool specimen / Unknown Non-blood Collection / Unknown 05/03/2025 1:52 PM EDT 05/03/2025 1:56 PM EDT Narrative [facility] ([facility]) - 05/05/2025 8:30 PM EDT REFERENCE INTERVAL: Calprotectin, Fecal by Immunoassay Less than 50 ug/g........Normal 50-120 ug/g..............Borderline elevated, test should be re-evaluated in 4-6 weeks. 121 ug/g or greater......Elevated Performed By: [employer] [address] [place] [id number] Stemhole Borer And Topper: Jamir rPakash MD, PhD CLIA Number: [id number] [facility] BODY FLUIDS AND STOOLS ORDERABLES Final Result [facility] ([employer]) [address] [place] [id number] * (ABNORMAL) Vitamin B12 (05/03/2025 1:48 PM EDT) [facility] Vitamin B12, Serum >2,000(H) 210 - 1,033 pg/mL 05/03/2025 4:29 PM EDT [facility] Blood Venous blood specimen / Unknown Venipuncture / Unknown 05/03/2025 1:48 PM EDT 05/03/2025 1:50 PM EDT us [facility] LAB BLOOD ORDERABLES Final Result [facility] [address] [place] [address] * Magnesium (05/03/2025 1:48 PM EDT) [facility] Magnesium, Plasma 2.1 1.9 - 2.4 mg/dL 05/03/2025 3:06 PM EDT [facility] Blood Venous blood specimen / Unknown Venipuncture / Unknown 05/03/2025 1:48 PM EDT 05/03/2025 1:50 PM EDT us [facility] LAB BLOOD ORDERABLES Final Result [facility] [address] [place] [address] * Quantiferon TB Gold (05/03/2025 1:48 PM EDT) [facility] Quantiferon TB Gold Plus Result Negative Negative 05/04/2025 5:41 PM EDT [facility] TB Nill Value 0.0602 IU/mL 05/04/2025 5:41 PM EDT [facility] TB Antigen 1 0.0113 IU/mL 05/04/2025 5:41 PM EDT [facility] TB Antigen 2 0.0194 IU/mL 05/04/2025 5:41 PM EDT [facility] TB Mitogen 9.9398 IU/mL 05/04/2025 5:41 PM EDT [facility] Blood Venous blood specimen / Unknown Venipuncture / Unknown 05/03/2025 1:48 PM EDT 05/03/2025 1:50 PM EDT Narrative [facility] - 05/04/2025 5:41 PM EDT Responses to the Mitogen positive control and occasionally to TB antigen can be above the assay range. For calculation purposes: IFN-gamma values > 10 IU/mL are handled as 10 IU/mL. us [facility] LAB BLOOD ORDERABLES Final Result Performing Organization Address [facility] Co de Phone Number [facility] [address] [place] [address] * Hepatitis B Surface Antibody, Quantitative (05/03/2025 1:48 PM EDT) Hepatitis B Surface Antibody, Quantitative <8.00 NonReactiv e: <8, Grayzone: 8 - <12, Reactive: >= 12 mIU/mL 05/03/2025 5:03 PM EDT [facility] Comment: Nonreactive. Individual is considered not immune to HBV infection. Blood Venous blood specimen / Unknown Venipuncture / Unknown 05/03/2025 1:48 PM EDT 05/03/2025 1:50 PM EDT us [facility] [employer] [facility] LAB BLOOD ORDERABLES Final Result Performing Organization Address [facility] Co de Phone Number [facility] [address] [place] [address] * Hepatitis B surface antigen (05/03/2025 1:48 PM EDT) Hepatitis B Surf Antigen Negative Negative 05/03/2025 5:03 PM EDT [facility] Blood Venous blood specimen / Unknown Venipuncture / Unknown 05/03/2025 1:48 PM EDT 05/03/2025 1:50 PM EDT us [facility] [employer] [facility] LAB BLOOD ORDERABLES Final Result Performing Organization Address City/[facility]/ZIP Co de Phone Number [facility] [address] [place] [address] * (ABNORMAL) CBC and Differential (05/03/2025 1:48 PM EDT) WBC Count 9.22 3.70 - 10.30 10*3/uL LAB HEMATOLOGY METHOD 05/03/2025 3:14 PM EDT [facility] RBC Count 4.10 3.90 - 5.20 10*6/uL LAB HEMATOLOGY METHOD 05/03/2025 3:14 PM EDT [facility] HGB 13.3 11.2 - 15.7 g/dL LAB HEMATOLOGY METHOD 05/03/2025 3:14 PM EDT [facility] HCT 40.8 34.0 - 45.0 % LAB HEMATOLOGY METHOD 05/03/2025 3:14 PM EDT [facility] Platelet Count 481(H) 155 - 369 10*3/uL LAB HEMATOLOGY METHOD 05/03/2025 3:14 PM EDT [facility] MCV 100(H) 79 - 98 fL LAB HEMATOLOGY METHOD 05/03/2025 3:14 PM EDT [facility] MCH 32.4(H) 26.0 - 32.0 pg LAB HEMATOLOGY METHOD 05/03/2025 3:14 PM EDT [facility] MCHC 32.6 30.7 - 35.5 g/dL LAB HEMATOLOGY METHOD 05/03/2025 3:14 PM EDT [facility] RDW 12.3 11.5 - 14.5 % LAB HEMATOLOGY METHOD 05/03/2025 3:14 PM EDT [facility] MPV 9.2 8.8 - 12.5 fL LAB HEMATOLOGY METHOD 05/03/2025 3:14 PM EDT [facility] nRBC 0.0 <=0.0 per 100 WBCs LAB HEMATOLOGY METHOD 05/03/2025 3:14 PM EDT [facility] Differential Type Automated LAB HEMATOLOGY METHOD 05/03/2025 3:14 PM EDT [facility] Neutrophils % 73 % LAB HEMATOLOGY METHOD 05/03/2025 3:14 PM EDT [facility] Lymphocytes % 10 % LAB HEMATOLOGY METHOD 05/03/2025 3:14 PM EDT [facility] Monocytes % 6 % LAB HEMATOLOGY METHOD 05/03/2025 3:14 PM EDT [facility] Eosinophils % 10 % LAB HEMATOLOGY METHOD 05/03/2025 3:14 PM EDT [facility] Basophils % 1 % LAB HEMATOLOGY METHOD 05/03/2025 3:14 PM EDT [facility] Immature Granulocytes % 0 % LAB HEMATOLOGY METHOD 05/03/2025 3:14 PM EDT [facility] Neutrophils Absolute 6.82(H) 1.60 - 6.10 10*3/uL LAB HEMATOLOGY METHOD 05/03/2025 3:14 PM EDT [facility] Lymphocytes Absolute 0.90(L) 1.20 - 3.90 10*3/uL LAB HEMATOLOGY METHOD 05/03/2025 3:14 PM EDT [facility] Monocytes Absolute 0.52 0.30 - 0.90 10*3/uL LAB HEMATOLOGY METHOD 05/03/2025 3:14 PM EDT [facility] Eosinophils Absolute 0.89(H) 0.00 - 0.50 10*3/uL LAB HEMATOLOGY METHOD 05/03/2025 3:14 PM EDT [facility] Basophils Absolute 0.06 0.00 - 0.10 10*3/uL LAB HEMATOLOGY METHOD 05/03/2025 3:14 PM EDT [facility] Immature Granulocytes Absolute 0.03 0.00 - 0.06 10*3/uL LAB HEMATOLOGY METHOD 05/03/2025 3:14 PM EDT [facility] Blood Venous blood specimen / Unknown Venipuncture / Unknown 05/03/2025 1:48 PM EDT 05/03/2025 1:50 PM EDT [facility] - 05/03/2025 3:14 PM EDT Therapeutic decision making should be based on absolute values, rather than percentages. [facility] BLOOD ORDERABLES Final Result [facility] [address] [place] [address] * C-Reactive Protein, Plasma (05/03/2025 1:48 PM EDT) CRP, Plasma 4.8 <=8.0 mg/L 05/03/2025 3:06 PM EDT [facility] Blood Venous blood specimen / Unknown Venipuncture / Unknown 05/03/2025 1:48 PM EDT 05/03/2025 1:50 PM EDT Narrative [facility] - 05/03/2025 3:06 PM EDT This CRP test is appropriate for assessment of infection, systemic inflammation and/or tissue injury. To assess cardiovascular disease risk order high sensitivity CRP (CRPH). us [facility] BLOOD ORDERABLES Final Result [facility] [address] [place] [address] * (ABNORMAL) Comprehensive Metabolic Panel, Plasma (05/03/2025 1:48 PM EDT) Glucose, Plasma 101(H) 74 - 99 mg/dL 05/03/2025 3:06 PM EDT [facility] BUN, Plasma 14 7 - 21 mg/dL 05/03/2025 3:06 PM EDT [facility] Creatinine, Plasma 0.67 0.60 - 1.10 mg/dL 05/03/2025 3:06 PM EDT [facility] BUN/Creatinine Ratio 21 05/03/2025 3:06 PM EDT [facility] Sodium, Plasma 142 136 - 145 mmol/L 05/03/2025 3:06 PM EDT [facility] Potassium, Plasma 4.1 3.6 - 4.9 mmol/L 05/03/2025 3:06 PM EDT [facility] Chloride, Plasma 106 97 - 107 mmol/L 05/03/2025 3:06 PM EDT [facility] CO2, Plasma 27 22 - 29 mmol/L 05/03/2025 3:06 PM EDT [facility] Anion Gap 9 6 - 16 mmol/L 05/03/2025 3:06 PM EDT [facility] Total Calcium, Plasma 9.5 8.9 - 10.2 mg/dL 05/03/2025 3:06 PM EDT [facility] Total Protein 7.6 6.3 - 7.9 g/dL 05/03/2025 3:06 PM EDT [facility] Albumin, Plasma 4.2 3.5 - 5.2 g/dL 05/03/2025 3:06 PM EDT [facility] AST, Plasma 16 10 - 35 U/L 05/03/2025 3:06 PM EDT [facility] ALT, Plasma 17 10 - 35 U/L 05/03/2025 3:06 PM EDT [facility] Alkaline Phosphatase, Plasma 121 46 - 142 U/L 05/03/2025 3:06 PM EDT [facility] Total Bilirubin, Plasma 0.3 0.2 - 1.1 mg/dL 05/03/2025 3:06 PM EDT [facility] eGFRcr 102.1 mL/min/1.7 3m*2 05/03/2025 3:06 PM EDT [facility] Comment:Reported eGFRcr in m L/min/1.73m2 is based the CKD-EPI 2020 equation that does not use a race coefficient. Blood Venous blood specimen / Unknown Venipuncture / Unknown 05/03/2025 1:48 PM EDT 05/03/2025 1:50 PM EDT [facility] BLOOD ORDERABLES Final Result [facility] [address] [place] [address] documented in this encounter Visit Diagnoses Diagnosis [...] documented as of this encounter Care Teams Mix Mill Tender Relationship Specialty Start Date End Date Giovanny Guzman MD [address] [place] [address] PCP - General 02/16/21 documented as of this encounter
--- OUTSIDE RECORDS SUMMARY | 2025-06-16 13:07 | XMS_ITS | Encounter Summary ---
Author Organization [facility] Address [address] [place] [address] Care Team Providers Care Terrazzo Roller Name Role Phone Giovanny Guzman MD Primary Care Provider [phone] Reason for Visit * Reason Comments Med Refill Encounter Details Date Type Department Care Team (Late st Contact Info) Description 07/31/2021 Refill [facility] Medicine Specialties [address] [place] [address] [employer], [place] [address] [place] [address] Social History Tobacco Use Types [...] Description 09/05/2025 2:00 PM EST Office Visit [facility] Medicine Specialties [address], [address] [place] [address] [employer], [place] [address] [place] [address] documented as of this encounter Visit Diagnoses Not on filedocumented in this encounter Additional Health Concerns Infection Onset Date Last Indicated Resolved Time COVID-19 Rule-Out 10/17/2021 10/17/2021 10/17/2021 10:52 AM EST Assessment Noted Time A fall risk assessment has been complete d for the patient 06/26/2021 10:40 AM EDT documented as of this encounter Care Teams Terrazzo Roller Relationship Specialty Start Date End Date Giovanny Guzman MD [address] [place] [address] PCP - General 02/16/21 documented as of this encounter
--- OUTSIDE RECORDS SUMMARY | 2025-06-16 13:07 | XMS_ITS | Encounter Summary ---
Author Organization Healthcare Address [address] [place] [address] Care Team Providers Care Wellness Trainer Name Role Phone Giovanny Guzman MD Primary Care Provider [phone] Encounter Details Date Type Department Care Team (Late st Contact Info) Description 03/18/2025 Results Follow-Up [facility] Medicine Specialties [address], [address] [place] [address] [employer] [place] [address] [place] [address] Social History Tobacco Use Types [...] Description 09/05/2025 2:00 PM EST Office Visit [facility] Medicine Specialties [address] [place] [address] [employer] PA [address] [place] [address] documented as of this encounter Visit Diagnoses Not on filedocumented in this encounter Additional Health Concerns Assessment Noted Time A fall risk assessment has been complete d for the patient 04/27/2024 10:58 AM EDT A Body Mass Index follow-up plan has been documented for the patient 04/27/2024 11:52 AM EDT documented as of this encounter Care Teams Wellness Trainer Relationship Specialty Start Date End Date Giovanny Guzman MD [address] [place] [address] PCP - General 02/16/21 documented as of this encounter
--- OUTSIDE RECORDS SUMMARY | 2025-06-16 13:07 | XMS_ITS | Encounter Summary ---
Author Organization [facility] Address [address] [place] [address] Care Team Providers Care Stage Builder Name Role Phone Giovanny Guzman MD Primary Care Provider [phone] Reason for Visit * Reason Comments Med Refill Encounter Details Date Type Department Care Team (Late st Contact Info) Description 08/31/[address] [facility] Medicine Specialties [address] [place] [address] [employer], [place] [address] [facility] [address] [place] [address] Social History Tobacco Use Types [...] Description 09/05/2025 2:00 PM EST Office Visit [facility] Medicine Specialties [address] [place] [address] [employer], [place] [address] [place] [address] documented as of this encounter Visit Diagnoses Not on filedocumented in this encounter Additional Health Concerns Infection Onset Date Last Indicated Resolved Time COVID-19 Rule-Out 10/17/2021 10/17/2021 10/17/2021 10:52 AM EST Assessment Noted Time A fall risk assessment has been complete d for the patient 06/26/2021 10:40 AM EDT documented as of this encounter Care Teams Stage Builder Relationship Specialty Start Date End Date Giovanny Guzman MD [address] [place] [address] PCP - General 02/16/21 documented as of this encounter
--- OUTSIDE RECORDS SUMMARY | 2025-06-16 13:07 | XMS_ITS | Encounter Summary ---
Author Organization Healthcare Address [address] [place] [address] Care Team Providers Care Minister Of Religion Name Role Phone Giovanny Guzman MD Primary Care Provider [phone] Reason for Visit * Reason Onset Date Comments Entyvio 05/03/2025 Encounter Details Date Type Department Care Team (Late st Contact Info) Description 05/03/2025 Telephone [facility] Medicine Specialties [address] [place] [id number] Terrance Gallo, PharmD Entyvio Social History Tobacco [...] -2 Score 0 05/03/2025 12:59 PM EDT Anish Martine W documented as of this encounter Miscellaneous Notes * Telephone Encounter - Suyapa Hsu RN - 06/07/2025 10:41 AM EDT Reviewed pt's chart: - CBC with diff, CMP, CRP results from 06/02/2025 uploaded under Media tab - Entyvio week 2 infusion due - 06/16/2025 Updated IBD Labwork Monitoring List * Telephone Encounter - Suyapa Hsu RN - 05/25/2025 7:18 AM EDT Reviewed pt's chart: - Per second Typemockhart message encounter, pt is scheduled for first Entyvio infusion on 06/02/2025. * Telephone Encounter - Teresa Garay, PharmD - 05/06/2025 1:51 PM EDT Patient has been approved to receive infusion treatment at outside facility. [facility] will follow up with facility to make sure patient has been scheduled and received first dose. Specialty Medication: Entyvio Filling [facility] * Telephone Encounter - Roseanne Montoya CPhT - 05/06/2025 12:32 PM EDT Infusion Authorization Not Required Specialty Medication: Entyvio J-Code/CPT Code/S-Code: J3380 Quantity and Units of Measure Reviewed: QS Diagnosis Code: K50.10 and K50.90 Insurance Name: [employer] Where did you submit request and how (portal/fax/phone number): Availity Reference Number: NA Follow-Up Phone Number: NA Filling Pharmacy/SOC: [facility] Will review auth status in 3 months. [...] then every 8 weeks Site of Care: [facility] Does patient have an Advantage Plan? No. Will review in 12 months. * Telephone Encounter - Laure Bond PharmD - 05/06/2025 12:06 PM EDT [facility] has received therapy plan for medication Entyvio. [facility] has contacted the patient and are in the process of completing the authorization for preferred site of care, [facility] . [facility] Specialty Education Summary Patient's mother was assessed via phone for initiation of drug therapy Entyvio for diagnosis Crohn's Disease. Plan for administration of therapy in infusion center and planned date of initiation: pending auth. Anticipated filling pharmacy is [facility]. Education and Counseling Medication specific education [...] 12:06 PM * Telephone Encounter - Terrance Gallo, PharmD - 05/03/2025 2:53 PM EDT ----- Message from DORY Garcia sent at 05/03/2025 2:37 PM EDT ----- Regarding: Entyvio start Please work on approval for vedolizumab. Please contact patient's mom for medication education. Patient would prefer IV vedolizumab and would like infusions to be arranged at [facility]. Thanks! documented in this encounter Plan of Treatment Upcoming Encounters Date Type Department Care Team (Late st Contact Info) Description 09/05/2025 2:00 PM EST Office Visit [facility] Medicine Specialties [address] [place] [address] [employer] [place] [address] [place] [address] documented as of this encounter Visit Diagnoses Not on filedocumented in this encounter Additional Health Concerns Assessment Noted Time A fall risk assessment has been complete d for the patient 04/27/2024 10:58 AM EDT A Body Mass Index follow-up plan has been documented for the patient 05/03/2025 2:36 PM EDT documented as of this encounter Care Teams Minister Of Religion Relationship Specialty Start Date End Date Giovanny Guzman MD [address] [place] [address] PCP - General 02/16/21 documented as of this encounter
--- OUTSIDE RECORDS SUMMARY | 2025-06-16 13:07 | XMS_ITS | Encounter Summary ---
Author Organization Healthcare Address [address] [place] [address] Care Team Providers Care Starter Mechanic Name Role Phone Giovanny Guzman MD Primary Care Provider [phone] Encounter Details Date Type Department Care Team (Late st Contact Info) Description 05/03/2025 Orders Only [facility] Medicine Specialties [address] [place] [address] [employer] [place] [address] [place] [address] Crohn's disease of large intestine [...] Not at all 05/03/2025 12:59 PM EDT Filion, Martine W Feeling down, depressed, or hopeless Not at all 05/03/2025 12:59 PM EDT Martine Oconnell Patient Health Questionnaire -2 Score 0 05/03/2025 12:59 PM EDT Martine Oconnell documented as of this encounter Plan of Treatment Upcoming Encounters Date Type Department Care Team (Late st Contact Info) Description 09/05/2025 2:00 PM EST Office Visit [facility] Medicine Specialties [address] [place] [address] [employer], [place] [address] [place] [address] documented as of this encounter [...] documented as of this encounter Care Teams Starter Mechanic Relationship Specialty Start Date End Date Giovanny Guzman MD [address] [place] [address] PCP - General 02/16/21 documented as of this encounter
--- OUTSIDE RECORDS SUMMARY | 2025-06-16 13:07 | XMS_ITS | Encounter Summary ---
Author Organization Healthcare Address [address] [place] [address] Care Team Providers Care Mine Supervisor Name Role Phone Giovanny Guzman MD Primary Care Provider [phone] Encounter Details Date Type Department Care Team (Late st Contact Info) Description 05/03/2025 Results Follow-Up [facility] Medicine Specialties [address] [place] [address] [employer] [place] [address] [place] [address] Social History Tobacco Use Types [...] Description 09/05/2025 2:00 PM EST Office Visit [facility] Medicine Specialties [address] [place] [address] [employer] [place] [address] [place] [address] documented as of this encounter Visit Diagnoses Not on filedocumented in this encounter Additional Health Concerns Assessment Noted Time A fall risk assessment has been complete d for the patient 04/27/2024 10:58 AM EDT A Body Mass Index follow-up plan has been documented for the patient 05/03/2025 2:36 PM EDT documented as of this encounter Care Teams Mine Supervisor Relationship Specialty Start Date End Date Giovanny Guzman MD [address] [place] [address] PCP - General 02/16/21 documented as of this encounter
--- OUTSIDE RECORDS SUMMARY | 2025-06-16 13:07 | XMS_ITS | Clinical Summary ---
Author Organization [facility] Address [address] [place] [address] Care Team Providers Care Bandage Winding Machine Operator Name Role Phone Giovanny Guzman MD Primary Care Provider [phone] Allergies No known active allergies Medications cholecalciferol [...] Visit [facility] [address], [address] [place] [address] [phone] Bailey [employer] PA Crohn's disease of both small and large intestine without complication (CMS/HCC) (Primary Dx); Gastroesophageal reflux disease, unspecified whether esophagitis present; Encounter for monitoring long-term proton pump inhibitor therapy 05/03/2025 Results Follow-Up [facility] [address], [address] [place] [phone] [employer] PA 05/03/2025 Telephone [facility] [address], [address] [place] [address] [phone] Terrance Gallo, PharmD Entyvio 05/03/2025 Orders Only [facility] [address], [address] [place] [address] [phone] Bailey Brothers PA Crohn's disease of large intestine without complication (CMS/HCC) (Primary Dx); Crohn's disease without complication, unspecified gastrointestinal tract location (CMS/HCC) 05/03/2025 Travel 03/18/2025 Results Follow-Up [facility] [address], [address] [place] [phone] Bailey Brothers PA 03/18/2025 Refill [facility] [address], [address] [place] [phone] Bailey Brothers, DORY Crohn's disease of both small and large intestine without complication (CMS/HCC) 03/18/2025 Orders Only [facility] [address], [address] [place] [address] Suyapa Hsu, RN Crohn's disease of both small and large intestine without complication ([facility]); Encounter for monitoring azathioprine therapy from Last 3 Months Immunizations Immunization Administration Dates Next Due Influenza, injectable, quadr ivalent, preservative free 07/15/2023,06/27/2022,09/04/2021,2017 Pfizer-CloudShare COVID-19 Vac cine (Purple Cap) 12+ 01/10/2021 [...] Visit [place] [facility] [address], [address] [place] [address] Bailey Brothers PA [address] [place] [address] Health Maintenance Due Date Last [...] 01/13/2013 Sigmoidoscopy 01/13/2013 [facility]-Breast Cancer Screening 01/13/2018 [id number] Vaccine (6 - Pfizer risk season) 2025 [...] for monitoring long-term proton pump inhibitor therapy COLONOSCOPY 07/05/2019 from Last 3 Months or Most Recently Relevant to Health Maintenance Results * (ABNORMAL) Calprotectin, Fecal by Immunoassay (05/03/2025 1:52 PM EDT) Pathologist [facility] CALPROTECTIN >3000(H) <=49 ug/g 05/05/2025 8:30 PM EDT [facility] (CALINNEERAJ) Stool Stool specimen / Unknown Non-blood Collection / Unknown 05/03/2025 1:52 PM EDT 05/03/2025 1:56 PM EDT Narrative [facility] (TRUPTI) - 05/05/2025 8:30 PM EDT REFERENCE INTERVAL: Calprotectin, Fecal by Immunoassay Less than 50 ug/g........Normal 50-120 ug/g..............Borderline elevated, test should be re-evaluated in 4-6 weeks. 121 ug/g or greater......Elevated Performed By: [employer] [address] [id number] As[employer]er [employer]ical Instruments: Jamir Prakash MD, PhD CLIA Number: [id number] Bailey [facility] BODY FLUIDS AND STOOLS ORDERABLES Final Result [facility] ([facility]) [address] [place] [address] * Hepatitis B Surface Antibody, Quantitative (05/03/2025 1:48 PM EDT) Pathologist [facility] Hepatitis B Surface Antibody, Quantitative <8.00 NonReactiv e: <8, Grayzone: 8 - <12, Reactive: >= 12 mIU/mL 05/03/2025 5:03 PM EDT [facility] Comment: Nonreactive. Individual is considered not immune to HBV infection. Blood Venous blood specimen / Unknown Venipuncture / Unknown 05/03/2025 1:48 PM EDT 05/03/2025 1:50 PM EDT [facility] [place] LAB BLOOD ORDERABLES Final Result Performing Organization Address City/[facility] Co de Phone Number [facility] [address] [place] [address] * Quantiferon TB Gold (05/03/2025 1:48 PM EDT) [facility] Quantiferon TB Gold Plus Result Negative Negative 05/04/2025 5:41 PM EDT [facility] TB Nill Value 0.0602 IU/mL 05/04/2025 5:41 PM EDT [facility] TB Antigen 1 0.0113 IU/mL 05/04/2025 5:41 PM EDT [facility] TB Antigen 2 0.0194 IU/mL 05/04/2025 5:41 PM EDT [facility] TB Mitogen 9.9398 IU/mL 05/04/2025 5:[address] [facility] Blood Venous blood specimen / Unknown Venipuncture / Unknown 05/03/2025 1:48 PM EDT 05/03/2025 1:50 PM EDT Narrative [facility] - 05/04/2025 5:41 PM EDT Responses to the Mitogen positive control and occasionally to TB antigen can be above the assay range. For calculation purposes: IFN-gamma values > 10 IU/mL are handled as 10 IU/mL. Bailey B [place] LAB BLOOD ORDERABLES Final Result Performing Organization Address [facility]/ZIP Co de Phone Number [facility] [address] [place] [address] * Hepatitis B surface antigen (05/03/2025 1:48 PM EDT) Pathologist [facility] Hepatitis B Surf Antigen Negative Negative 05/03/2025 5:03 PM EDT [facility] Blood Venous blood specimen / Unknown Venipuncture / Unknown 05/03/2025 1:48 PM EDT 05/03/2025 1:50 PM EDT [facility] BLOOD ORDERABLES Final Result [facility] [address] [place] [address] * (ABNORMAL) CBC and Differential (05/03/2025 1:48 PM EDT) [facility] WBC Count 9.22 3.70 - 10.30 10*3/uL LAB HEMATOLOGY METHOD 05/03/2025 3:14 PM EDT [facility] RBC Count 4.10 3.90 - 5.20 10*6/uL LAB HEMATOLOGY METHOD 05/03/2025 3:14 PM EDT [facility] HGB 13.3 11.2 - 15.7 g/dL LAB HEMATOLOGY METHOD 05/03/2025 3:14 PM EDT [facility] HCT 40.8 34.0 - 45.0 % LAB HEMATOLOGY METHOD 05/03/2025 3:14 PM EDT [facility] Platelet Count 481(H) 155 - 369 10*3/uL LAB HEMATOLOGY METHOD 05/03/2025 3:14 PM EDT [facility] MCV 100(H) 79 - 98 fL LAB HEMATOLOGY METHOD 05/03/2025 3:14 PM EDT [facility] MCH 32.4(H) 26.0 - 32.0 pg LAB HEMATOLOGY METHOD 05/03/2025 3:14 PM EDT [facility] MCHC 32.6 30.7 - 35.5 g/dL LAB HEMATOLOGY METHOD 05/03/2025 3:14 PM EDT [facility] RDW 12.3 11.5 - 14.5 % LAB HEMATOLOGY METHOD 05/03/2025 3:14 PM EDT [facility] MPV 9.2 8.8 - 12.5 fL LAB HEMATOLOGY METHOD 05/03/2025 3:14 PM EDT [facility] nRBC 0.0 <=0.0 per 100 WBCs LAB HEMATOLOGY METHOD 05/03/2025 3:14 PM EDT [facility] Differential Type Automated LAB HEMATOLOGY METHOD 05/03/2025 3:14 PM EDT [facility] Neutrophils % 73 % LAB HEMATOLOGY METHOD 05/03/2025 3:14 PM EDT [facility] Lymphocytes % 10 % LAB HEMATOLOGY METHOD 05/03/2025 3:14 PM EDT [facility] Monocytes % 6 % LAB HEMATOLOGY METHOD 05/03/2025 3:14 PM EDT [facility] Eosinophils % 10 % LAB HEMATOLOGY METHOD 05/03/2025 3:14 PM EDT [facility] Basophils % 1 % LAB HEMATOLOGY METHOD 05/03/2025 3:14 PM EDT [facility] Immature Granulocytes % 0 % LAB HEMATOLOGY METHOD 05/03/2025 3:14 PM EDT [facility] Neutrophils Absolute 6.82(H) 1.60 - 6.10 10*3/uL LAB HEMATOLOGY METHOD 05/03/2025 3:14 PM EDT [facility] Lymphocytes Absolute 0.90(L) 1.20 - 3.90 10*3/uL LAB HEMATOLOGY METHOD 05/03/2025 3:14 PM EDT [facility] Monocytes Absolute 0.52 0.30 - 0.90 10*3/uL LAB HEMATOLOGY METHOD 05/03/2025 3:14 PM EDT [facility] Eosinophils Absolute 0.89(H) 0.00 - 0.50 10*3/uL LAB HEMATOLOGY METHOD 05/03/2025 3:14 PM EDT [facility] Basophils Absolute 0.06 0.00 - 0.10 10*3/uL LAB HEMATOLOGY METHOD 05/03/2025 3:14 PM EDT [facility] Immature Granulocytes Absolute 0.03 0.00 - 0.06 10*3/uL LAB HEMATOLOGY METHOD 05/03/2025 3:14 PM EDT [facility] Blood Venous blood specimen / Unknown Venipuncture / Unknown 05/03/2025 1:48 PM EDT 05/03/2025 1:50 PM EDT [facility] - 05/03/2025 3:14 PM EDT Therapeutic decision making should be based on absolute values, rather than percentages. Bailey Nguyencalinam PA LAB BLOOD ORDERABLES Final Result Performing Organization Address City/[facility]/ZIP Co de Phone Number [facility] [address] [place] [address] * C-Reactive Protein, Plasma (05/03/2025 1:48 PM EDT) CRP, Plasma 4.8 <=8.0 mg/L 05/03/2025 3:06 PM EDT [facility] Blood Venous blood specimen / Unknown Venipuncture / Unknown 05/03/2025 1:48 PM EDT 05/03/2025 1:50 PM EDT Narrative [facility] - 05/03/2025 3:06 PM EDT This CRP test is appropriate for assessment of infection, systemic inflammation and/or tissue injury. To assess cardiovascular disease risk order high sensitivity CRP (CRPH). Bailey Dukechanocalinam PA LAB BLOOD ORDERABLES Final Result Performing Organization Address [facility] Co de Phone Number [facility] [address] [place] [address] * Magnesium (05/03/2025 1:48 PM EDT) Pathologist [facility] Magnesium, Plasma 2.1 1.9 - 2.4 mg/dL 05/03/2025 3:06 PM EDT [facility] Blood Venous blood specimen / Unknown Venipuncture / Unknown 05/03/2025 1:48 PM EDT 05/03/2025 1:50 PM EDT Bailey B radhacalinam PA LAB BLOOD ORDERABLES Final Result Performing Organization Address City/[facility]/ZIP Co de Phone Number [facility] [address] [place] [address] * (ABNORMAL) Vitamin B12 (05/03/2025 1:48 PM EDT) Vitamin B12, Serum >2,000(H) 210 - 1,033 pg/mL 05/03/2025 4:29 PM EDT [facility] Blood Venous blood specimen / Unknown Venipuncture / Unknown 05/03/2025 1:48 PM EDT 05/03/2025 1:50 PM EDT us Bailey [facility] LAB BLOOD ORDERABLES Final Result [facility] [address] [place] [address] * (ABNORMAL) Comprehensive Metabolic Panel, Plasma (05/03/2025 1:48 PM EDT) Glucose, Plasma 101(H) 74 - 99 mg/dL 05/03/2025 3:06 PM EDT [facility] BUN, Plasma 14 7 - 21 mg/dL 05/03/2025 3:06 PM EDT [facility] Creatinine, Plasma 0.67 0.60 - 1.10 mg/dL 05/03/2025 3:06 PM EDT [facility] BUN/Creatinine Ratio 21 05/03/2025 3:06 PM EDT [facility] Sodium, Plasma 142 136 - 145 mmol/L 05/03/2025 3:06 PM EDT [facility] Potassium, Plasma 4.1 3.6 - 4.9 mmol/L 05/03/2025 3:06 PM EDT [facility] Chloride, Plasma 106 97 - 107 mmol/L 05/03/2025 3:06 PM EDT [facility] CO2, Plasma 27 22 - 29 mmol/L 05/03/2025 3:06 PM EDT [facility] Anion Gap 9 6 - 16 mmol/L 05/03/2025 3:06 PM EDT [facility] Total Calcium, Plasma 9.5 8.9 - 10.2 mg/dL 05/03/2025 3:06 PM EDT [facility] Total Protein 7.6 6.3 - 7.9 g/dL 05/03/2025 3:06 PM EDT [facility] Albumin, Plasma 4.2 3.5 - 5.2 g/dL 05/03/2025 3:06 PM EDT [facility] AST, Plasma 16 10 - 35 U/L 05/03/2025 3:06 PM EDT [facility] ALT, Plasma 17 10 - 35 U/L 05/03/2025 3:06 PM EDT [facility] Alkaline Phosphatase, Plasma 121 46 - 142 U/L 05/03/2025 3:06 PM EDT [facility] Total Bilirubin, Plasma 0.3 0.2 - 1.1 mg/dL 05/03/2025 3:06 PM EDT [facility] eGFRcr 102.1 mL/min/1.7 3m*2 05/03/2025 3:06 PM EDT [facility] Comment:Reported eGFRcr in m L/min/1.73m2 is based the CKD-EPI 2020 equation that does not use a race coefficient. Blood Venous blood specimen / Unknown Venipuncture / Unknown 05/03/2025 1:48 PM EDT 05/03/2025 1:50 PM EDT [employer] PA LAB BLOOD ORDERABLES Final Result [facility] [address] [place] [address] * COLONOSCOPY (07/05/2019) Anatomical Region Laterality Modality Endoscopy Narrative 07/05/2019 Ordered by an unspecified provider. Historical Provider GI PROCEDURE ORDERABLES Nella l Result from Last 3 Months or Most Recently Relevant to Health Maintenance Insurance MEDICARE [employer] MEDICAID Care Teams Bandage Winding Machine Operator Relationship Specialty Start Date End Date Giovanny Guzman MD [address] [place] [address] PCP - General 02/16/21
--- OUTSIDE RECORDS SUMMARY | 2025-06-16 13:07 | XMS_ITS | Encounter Summary ---
Author Organization Healthcare Address [address] [place] [address] Care Team Providers Care Hydrochloric Manufacturing Supervisor Name Role Phone Giovanny Guzman MD Primary Care Provider [phone] Encounter Details Date Type Department Care Team [...] Description 09/05/2025 2:00 PM EST Office Visit [facility] [address], [address] [place] [phone] Bailey [employer], DORY [address] [place] [address] documented as of this encounter Visit Diagnoses Not on filedocumented in this encounter Additional Health Concerns Assessment Noted Time A fall risk assessment has been complete d for the patient 04/27/2024 10:58 AM EDT A Body Mass Index follow-up plan has been documented for the patient 05/03/2025 2:36 PM EDT documented as of this encounter Care Teams Hydrochloric Manufacturing Supervisor Relationship Specialty Start Date End Date Giovanny Guzman MD [address] [place] [address] PCP - General 02/16/21 documented as of this encounter
--- OUTSIDE RECORDS SUMMARY | 2025-06-16 13:07 | XMS_ITS | Encounter Summary ---
Author Organization Healthcare Address [address] [place] [address] Care Team Providers Care Centerless Grinder Name Role Phone Giovanny Guzman MD Primary Care Provider [phone] Reason for Visit * Reason Comments Med Refill Encounter Details Date Type Department Care Team (Late st Contact Info) Description 04/20/2022 Refill [facility] [address], [address] [place] [address] Bailey [employer] PA [address] [place] [address] Crohn's disease of both small [...] additional labs. Labs will be faxed to [facility] and they will complete within 1-2 days. * Telephone Encounter - Tamela Fuller RN - 04/26/2022 1:23 PM EDT Lab results to be faxed from [facility] * Telephone Encounter - Suyapa Hsu RN - 04/22/2022 3:12 PM EDT Sent [email or web address] message to pt, to coordinate lab work for Azathioprine refill. Lab work orders placed in [facility]. Last lab work completed, per Epic, was 12/25/2021. * Telephone Encounter - Kassy Syed - 04/22/2022 8:00 AM EDT Per protocol, 1 medication(s), Azathiprine, has been refused due to: Refill not appropriate documented in this encounter Plan of Treatment Upcoming Encounters Date Type Department Care Team (Late st Contact Info) Description 09/05/2025 2:00 PM EST Office Visit [facility] [address], [address] [place] [address] Bailey [employer] PA [address] [place] [address] documented as of this encounter Visit Diagnoses Diagnosis Crohn's disease of both small and large intestine without complication (CMS/HCC)- Primary documented in this encounter Additional Health Concerns Assessment Noted Time A fall risk assessment has been complete d for the patient 12/25/2021 1:03 PM EDT documented as of this encounter Care Teams Centerless Grinder Relationship Specialty Start Date End Date Giovanny Guzman MD [address] [id number] PCP - General 02/16/21 documented as of this encounter
[2025-06-16 13:27] LABS: Hematocrit 40.4 % (37.0-47.0); Hemoglobin 13.4 g/dL (12.2-16.2); Immature Granulocytes % 0.4 %; Mean Corpuscular HGB Conc 33.2 g/dL (31.8-35.4); Mean Corpuscular Hemoglobin 32.4 pg (27.0-31.2); Mean Corpuscular Volume 97.6 fl (81-99); Nucleated Red Blood Cells % 0 %; Platelet Count 335 K/mm3 (142-424); Red Blood Count 4.14 M/mm3 (4.20-5.40); Red Cell Distribution Width-SD 43.4 fL; White Blood Count 5.4 K/mm3 (4.8-10.8)
[2025-06-16 13:30] VITALS: BP 104/61; PULSE 87; RESP 18; O2SAT 98
[2025-06-16] MEDS: VEDOLIZUMAB 300 MG in 0.9 % SODIUM CHLORIDE 250 ML 500 MG IV (13:30)
[2025-06-16 13:40] LABS: Albumin Level 4.2 g/dl (3.5-5.0); Chloride 107 mmol/L (98-107); Potassium 4.1 mmoL/L (3.5-5.1); Sodium 139 mmol/L (136-145)
[2025-06-16 13:43] LABS: Alanine Aminotransferase 13 U/L (12-78); Albumin/Globulin Ratio 1.3 (1.1-1.8); Alkaline Phosphatase 97 U/L (38-126); Anion Gap 8.1 mEq/L (5-15); Aspartate Amino Transferase 25 U/L (14-36); Bilirubin,Total 0.2 mg/dl (0.2-1.3); Blood Urea Nitrogen 15 mg/dl (7-17); Calcium 9.1 mg/dl (8.4-10.2); Carbon Dioxide 28 mmol/L (22.0-30.0); Creatinine,Serum 0.80 mg/dl (0.52-1.04); Estimated Glomerular Filt Rate 74 ml/min (>60); GFR (African American) 89 ML/MIN (>60); Globulin 3.3 g/dL (1.3-3.2); Glucose 109 mg/dl (74-100); Total Protein,Serum 7.5 g/dl (6.3-8.2)
[2025-06-16 14:10] LABS: C-Reactive Protein 1.5 mg/L (0-4)
[2025-06-16 14:15] VITALS: BP 105/66; PULSE 93; RESP 18; O2SAT 98
== END 2025-06-16 14:15 | disposition home or self-care (01) ==
LOC: INF 13:00
PROVIDERS: PCP Physician Assistant; Visit Provider Physician Assistant
DX: K50.90 Crohn's disease, unspecified, without complications (principal)
CPT/HCPCS: 80053; 85025; 86140; 96365; J3380; J7050

== ENCOUNTER 2025-06-21 13:46 | Outpatient (CLI) | payer MEDICARE, OTHER, SELFPAY ==
--- OUTSIDE RECORDS SUMMARY | 2025-05-03 12:40 | XMS_ITS | Encounter Summary ---
Author Organization [facility] Address [address] [place] [id number] Care Team Providers Care Arbor Press Operator Name Role Phone Giovanny Guzman MD Primary Care Provider [phone] Reason for Referral * Consultation (Routine) - Authorized Specialty Diagnoses / Procedures Referred By Renee porras Referred To Contact Diagnoses Crohn's disease of both small and large intestine without complication (CMS/HCC) [facility] [address] [address] Phone: tel: fax: Referral ID Status Reason Start Date Expiration Date V isits Requested Visits Authorized [id number] Authorized 05/03/2025 11/02/2026 1 1 * Imaging (Routine) - Authorized Specialty Diagnoses / Procedures Referred By Renee porras Referred To Contact Gastroenterology Diagnoses Crohn's disease of both small and large intestine without complication (CMS/HCC) Procedures Colonoscopy [facility] [address] [address] Phone: tel: fax: Referral ID Status Reason Start Date Expiration Date Visits Requested Visits Authorized [id number] Authorized Specialty Services Required 05/03/2025 11/02/2026 1 1 Reason for Visit * Reason Comments Crohn's Disease F/U Encounter Details Date Type Department Care Team (Late st Contact Info) Description 05/03/2025 12:40 PM EDT Office Visit [facility] [address] [place] [address] [facility] [address] [place] [address] Crohn's disease of both small [...] Diagnosis was made by Dr. Dorsey at [facility] when patient was experiencing symptoms of [...] is a non-smoker. Colonoscopy from 09/18/2022 at [facility] reviewed and showed no evidence of active [...] Description 09/05/2025 2:00 PM EST Office Visit [facility] [address] [place] [address] [facility] [address] [place] [address] Scheduled Orders Name Type Priority [...] >3000(H) <=49 ug/g 05/05/2025 8:30 PM EDT [facility] ([facility]) Stool Stool specimen / Unknown Non-blood Collection / Unknown 05/03/2025 1:52 PM EDT 05/03/2025 1:56 PM EDT Narrative [facility] ([facility]) - 05/05/2025 8:30 PM EDT REFERENCE INTERVAL: Calprotectin, Fecal by Immunoassay Less than 50 ug/g........Normal 50-120 ug/g..............Borderline elevated, test should be re-evaluated in 4-6 weeks. 121 ug/g or greater......Elevated Performed By: [address] [place] [id number] Waste Reduction Coordinator: Jamir Prakash MD, PhD CLIA Number: [id number] [facility] BODY FLUIDS AND STOOLS ORDERABLES Final Result [facility] ([employer]) [address] [place] [id number] * (ABNORMAL) Vitamin B12 (05/03/2025 1:48 PM EDT) [facility] Vitamin B12, Serum >2,000(H) 210 - 1,033 pg/mL 05/03/2025 4:29 PM EDT [facility] Blood Venous blood specimen / Unknown Venipuncture / Unknown 05/03/2025 1:48 PM EDT 05/03/2025 1:50 PM EDT us [facility] BLOOD ORDERABLES Final Result [facility] [address] [place] [address] * Magnesium (05/03/2025 1:48 PM EDT) [facility] Magnesium, Plasma 2.1 1.9 - 2.4 mg/dL 05/03/2025 3:06 PM EDT [facility] Blood Venous blood specimen / Unknown Venipuncture / Unknown 05/03/2025 1:48 PM EDT 05/03/2025 1:50 PM EDT us [facility] LAB BLOOD ORDERABLES Final Result [facility] [address] [place] [address] * Quantiferon TB Gold (05/03/2025 1:48 PM EDT) [facility] Quantiferon TB Gold Plus Result Negative Negative 05/04/2025 5:41 PM EDT [facility] TB Nill Value 0.0602 IU/mL 05/04/2025 5:41 PM EDT [facility] TB Antigen 1 0.0113 IU/mL 05/04/2025 5:41 PM EDT [facility] TB Antigen 2 0.0194 IU/mL 05/04/2025 5:41 PM EDT [facility] TB Mitogen 9.9398 IU/mL 05/04/2025 5:41 PM EDT [facility] Blood Venous blood specimen / Unknown Venipuncture / Unknown 05/03/2025 1:48 PM EDT 05/03/2025 1:50 PM EDT Narrative [facility] - 05/04/2025 5:41 PM EDT Responses to the Mitogen positive control and occasionally to TB antigen can be above the assay range. For calculation purposes: IFN-gamma values > 10 IU/mL are handled as 10 IU/mL. us [facility] BLOOD ORDERABLES Final Result Performing Organization Address [facility] Co de Phone Number [facility] [address] [place] [address] * Hepatitis B Surface Antibody, Quantitative (05/03/2025 1:48 PM EDT) Hepatitis B Surface Antibody, Quantitative <8.00 NonReactiv e: <8, Grayzone: 8 - <12, Reactive: >= 12 mIU/mL 05/03/2025 5:03 PM EDT [facility] Comment: Nonreactive. Individual is considered not immune to HBV infection. Blood Venous blood specimen / Unknown Venipuncture / Unknown 05/03/2025 1:48 PM EDT 05/03/2025 1:50 PM EDT us [facility] LAB BLOOD ORDERABLES Final Result Performing Organization Address [facility] Co de Phone Number [facility] [address] [place] [address] * Hepatitis B surface antigen (05/03/2025 1:48 PM EDT) Hepatitis B Surf Antigen Negative Negative 05/03/2025 5:03 PM EDT [facility] Blood Venous blood specimen / Unknown Venipuncture / Unknown 05/03/2025 1:48 PM EDT 05/03/2025 1:50 PM EDT us [facility] LAB BLOOD ORDERABLES Final Result Performing Organization Address City/[facility]/ZIP Co de Phone Number [facility] [address] [place] [address] * (ABNORMAL) CBC and Differential (05/03/2025 1:48 PM EDT) WBC Count 9.22 3.70 - 10.30 10*3/uL LAB HEMATOLOGY METHOD 05/03/2025 3:14 PM EDT [facility] RBC Count 4.10 3.90 - 5.20 10*6/uL LAB HEMATOLOGY METHOD 05/03/2025 3:14 PM EDT [facility] HGB 13.3 11.2 - 15.7 g/dL LAB HEMATOLOGY METHOD 05/03/2025 3:14 PM EDT [facility] HCT 40.8 34.0 - 45.0 % LAB HEMATOLOGY METHOD 05/03/2025 3:14 PM EDT [facility] Platelet Count 481(H) 155 - 369 10*3/uL LAB HEMATOLOGY METHOD 05/03/2025 3:14 PM EDT [facility] MCV 100(H) 79 - 98 fL LAB HEMATOLOGY METHOD 05/03/2025 3:14 PM EDT [facility] MCH 32.4(H) 26.0 - 32.0 pg LAB HEMATOLOGY METHOD 05/03/2025 3:14 PM EDT [facility] MCHC 32.6 30.7 - 35.5 g/dL LAB HEMATOLOGY METHOD 05/03/2025 3:14 PM EDT [facility] RDW 12.3 11.5 - 14.5 % LAB HEMATOLOGY METHOD 05/03/2025 3:14 PM EDT [facility] MPV 9.2 8.8 - 12.5 fL LAB HEMATOLOGY METHOD 05/03/2025 3:14 PM EDT [facility] nRBC 0.0 <=0.0 per 100 WBCs LAB HEMATOLOGY METHOD 05/03/2025 3:14 PM EDT [facility] Differential Type Automated LAB HEMATOLOGY METHOD 05/03/2025 3:14 PM EDT [facility] Neutrophils % 73 % LAB HEMATOLOGY METHOD 05/03/2025 3:14 PM EDT [facility] Lymphocytes % 10 % LAB HEMATOLOGY METHOD 05/03/2025 3:14 PM EDT [facility] Monocytes % 6 % LAB HEMATOLOGY METHOD 05/03/2025 3:14 PM EDT [facility] Eosinophils % 10 % LAB HEMATOLOGY METHOD 05/03/2025 3:14 PM EDT [facility] Basophils % 1 % LAB HEMATOLOGY METHOD 05/03/2025 3:14 PM EDT [facility] Immature Granulocytes % 0 % LAB HEMATOLOGY METHOD 05/03/2025 3:14 PM EDT [facility] Neutrophils Absolute 6.82(H) 1.60 - 6.10 10*3/uL LAB HEMATOLOGY METHOD 05/03/2025 3:14 PM EDT [facility] Lymphocytes Absolute 0.90(L) 1.20 - 3.90 10*3/uL LAB HEMATOLOGY METHOD 05/03/2025 3:14 PM EDT [facility] Monocytes Absolute 0.52 0.30 - 0.90 10*3/uL LAB HEMATOLOGY METHOD 05/03/2025 3:14 PM EDT [facility] Eosinophils Absolute 0.89(H) 0.00 - 0.50 10*3/uL LAB HEMATOLOGY METHOD 05/03/2025 3:14 PM EDT [facility] Basophils Absolute 0.06 0.00 - 0.10 10*3/uL LAB HEMATOLOGY METHOD 05/03/2025 3:14 PM EDT [facility] Immature Granulocytes Absolute 0.03 0.00 - 0.06 10*3/uL LAB HEMATOLOGY METHOD 05/03/2025 3:14 PM EDT [facility] Blood Venous blood specimen / Unknown Venipuncture / Unknown 05/03/2025 1:48 PM EDT 05/03/2025 1:50 PM EDT [facility] - 05/03/2025 3:14 PM EDT Therapeutic decision making should be based on absolute values, rather than percentages. [facility] BLOOD ORDERABLES Final Result [facility] [address] [place] [address] * C-Reactive Protein, Plasma (05/03/2025 1:48 PM EDT) CRP, Plasma 4.8 <=8.0 mg/L 05/03/2025 3:06 PM EDT [facility] Blood Venous blood specimen / Unknown Venipuncture / Unknown 05/03/2025 1:48 PM EDT 05/03/2025 1:50 PM EDT Narrative [facility] - 05/03/2025 3:06 PM EDT This CRP test is appropriate for assessment of infection, systemic inflammation and/or tissue injury. To assess cardiovascular disease risk order high sensitivity CRP (CRPH). us [facility] BLOOD ORDERABLES Final Result [facility] [address] [place] [address] * (ABNORMAL) Comprehensive Metabolic Panel, Plasma (05/03/2025 1:48 PM EDT) Glucose, Plasma 101(H) 74 - 99 mg/dL 05/03/2025 3:06 PM EDT [facility] BUN, Plasma 14 7 - 21 mg/dL 05/03/2025 3:06 PM EDT [facility] Creatinine, Plasma 0.67 0.60 - 1.10 mg/dL 05/03/2025 3:06 PM EDT [facility] BUN/Creatinine Ratio 21 05/03/2025 3:06 PM EDT [facility] Sodium, Plasma 142 136 - 145 mmol/L 05/03/2025 3:06 PM EDT [facility] Potassium, Plasma 4.1 3.6 - 4.9 mmol/L 05/03/2025 3:06 PM EDT [facility] Chloride, Plasma 106 97 - 107 mmol/L 05/03/2025 3:06 PM EDT [facility] CO2, Plasma 27 22 - 29 mmol/L 05/03/2025 3:06 PM EDT [facility] Anion Gap 9 6 - 16 mmol/L 05/03/2025 3:06 PM EDT [facility] Total Calcium, Plasma 9.5 8.9 - 10.2 mg/dL 05/03/2025 3:06 PM EDT [facility] Total Protein 7.6 6.3 - 7.9 g/dL 05/03/2025 3:06 PM EDT [facility] Albumin, Plasma 4.2 3.5 - 5.2 g/dL 05/03/2025 3:06 PM EDT [facility] AST, Plasma 16 10 - 35 U/L 05/03/2025 3:06 PM EDT [facility] ALT, Plasma 17 10 - 35 U/L 05/03/2025 3:06 PM EDT [facility] Alkaline Phosphatase, Plasma 121 46 - 142 U/L 05/03/2025 3:06 PM EDT [facility] Total Bilirubin, Plasma 0.3 0.2 - 1.1 mg/dL 05/03/2025 3:06 PM EDT [facility] eGFRcr 102.1 mL/min/1.7 3m*2 05/03/2025 3:06 PM EDT [facility] Comment:Reported eGFRcr in m L/min/1.73m2 is based the CKD-EPI 2020 equation that does not use a race coefficient. Blood Venous blood specimen / Unknown Venipuncture / Unknown 05/03/2025 1:48 PM EDT 05/03/2025 1:50 PM EDT [facility] BLOOD ORDERABLES Final Result [facility] [address] [place] [address] documented in this encounter Visit Diagnoses Diagnosis [...] documented as of this encounter Care Teams [employer] Operator Relationship Specialty Start Date End Date Giovanny Guzman MD [address] [place] [address] PCP - General 02/16/21 documented as of this encounter
--- NOTE | 2025-06-21 13:50 | MM_ITS ---
PROCEDURE INFORMATION: Exam: Bilateral Screening 3D Mammography Exam date and time: 06/21/2025 1:50 PM Age: 55 years old Clinical indication: Screening mammogram TECHNIQUE: Imaging protocol: Bilateral Screening tomosynthesis and 2D mammography including computer-aided detection (CAD) when performed. COMPARISON: MG DMSB DIG MAMM-SCREEN TRACY W/CAD 03/19/2017 4:34 PM FINDINGS: MAMMOGRAPHY: Breast composition: The breast is heterogeneously dense, which may obscure small masses. Mass: None. Architectural distortion: No new or suspicious architectural distortion. Calcifications: No new or suspicious calcifications are present Asymmetric density: No new or suspicious asymmetric density is present Skin thickening: None. Axillary adenopathy: None. IMPRESSION: No mammographic evidence of malignancy. Recommend annual screening mammography unless otherwise clinically indicated. ASSESSMENT: BI-RADS category 1: Negative.
--- OUTSIDE RECORDS SUMMARY | 2025-06-21 13:53 | XMS_ITS | Encounter Summary ---
Author Organization Healthcare Address [address] [place] [address] Care Team Providers Care Internal Recruiter Name Role Phone Giovanny Guzman MD Primary Care Provider [phone] Encounter Details Date Type Department Care Team (Late st Contact Info) Description 06/21/2025 Orders Only [facility] [address], [address] [place] [address] Provider, [address] [address] Social History Tobacco Use Types Packs/Day Years [...] Description 09/05/2025 2:00 PM EST Office Visit [facility] [address], [address] [place] [address] Bailey [employer] PA [address] [place] [address] documented as of this encounter Procedures Procedure Name Priority Date/Time Associated Diagnosis Comments CBC WITH AUTO DIFFERENTIAL Routine 06/16/2025 COMPREHENSIVE METABOLIC PANE L, PLASMA Routine 06/16/2025 documented in this encounter Results * CBC and Differential (06/16/2025) Blood Venous blood specimen / Unknown [facility] Provider LAB BLOOD ORDERABLES Final R esult * Comprehensive Metabolic Panel, Plasma (06/16/2025) Blood Venous blood specimen / Unknown [facility] Provider LAB BLOOD ORDERABLES Final R esult documented in this encounter Visit Diagnoses Not on filedocumented in this encounter Additional Health Concerns Assessment Noted Time A fall risk assessment has been complete d for the patient 04/27/2024 10:58 AM EDT A Body Mass Index follow-up plan has been documented for the patient 05/03/2025 2:36 PM EDT documented as of this encounter Care Teams Internal Recruiter Relationship Specialty Start Date End Date Giovanny Guzman MD [address] [place] [address] PCP - General 02/16/21 documented as of this encounter
--- OUTSIDE RECORDS SUMMARY | 2025-06-21 13:53 | XMS_ITS | Encounter Summary ---
Author Organization Healthcare Address [address] [place] [address] Care Team Providers Care Medical Records Director Name Role Phone Giovanny Guzman MD Primary Care Provider [phone] Encounter Details Date Type Department Care Team (Late st Contact Info) Description 03/18/2025 Results Follow-Up [facility] [address], [address] [place] [address] Bailey [employer] PA [address] [place] [address] Social History Tobacco Use Types [...] Visit [facility] [address], [address] [place] [address] [employer] PA [address] [place] [address] documented as of this encounter Visit Diagnoses Not on filedocumented in this encounter Additional Health Concerns Assessment Noted Time A fall risk assessment has been complete d for the patient 04/27/2024 10:58 AM EDT A Body Mass Index follow-up plan has been documented for the patient 04/27/2024 11:52 AM EDT documented as of this encounter Care Teams Medical Records Director Relationship Specialty Start Date End Date Giovanny Guzman MD [address] [place] [address] PCP - General 02/16/21 documented as of this encounter
--- OUTSIDE RECORDS SUMMARY | 2025-06-21 13:53 | XMS_ITS | Encounter Summary ---
Author Organization Healthcare Address [address] [place] [address] Care Team Providers Care Armament Mechanic Name Role Phone Giovanny Guzman MD Primary Care Provider [phone] Encounter Details Date Type Department Care Team (Late st Contact Info) Description 05/03/[address] [facility] [address], [address] [place] [address] Bailey [employer] PA [address] [place] [address] Crohn's disease of large intestine [...] Not at all 05/03/2025 12:59 PM EDT Thornton, Martine W Feeling down, depressed, or hopeless Not at all 05/03/2025 12:59 PM EDT Martine Oconnell Patient Health Questionnaire -2 Score 0 05/03/2025 12:59 PM EDT Martine Oconnell documented as of this encounter Plan of Treatment Upcoming Encounters Date Type Department Care Team (Late st Contact Info) Description 09/05/2025 2:00 PM EST Office Visit [facility] [address], [address] [place] [address] [employer], PA [address] [place] [address] documented as of this encounter [...] documented as of this encounter Care Teams Armament Mechanic Relationship Specialty Start Date End Date Giovanny Guzman MD [address] [place] [address] PCP - General 02/16/21 documented as of this encounter
--- OUTSIDE RECORDS SUMMARY | 2025-06-21 13:53 | XMS_ITS | Encounter Summary ---
Author Organization Healthcare Address [address] [place] [address] Care Team Providers Care Director Of Convention Services Name Role Phone Giovanny Guzman MD Primary Care Provider [phone] Encounter Details Date Type Department Care Team (Late st Contact Info) Description 05/03/2025 Results Follow-Up [facility] [address], [address] [place] [address] Bailey [employer] PA [address] [place] [address] Social History Tobacco Use Types [...] Visit [facility] [address], [address] [place] [address] [employer] PA [address] [place] [address] documented as of this encounter Visit Diagnoses Not on filedocumented in this encounter Additional Health Concerns Assessment Noted Time A fall risk assessment has been complete d for the patient 04/27/2024 10:58 AM EDT A Body Mass Index follow-up plan has been documented for the patient 05/03/2025 2:36 PM EDT documented as of this encounter Care Teams Director Of Convention Services Relationship Specialty Start Date End Date Giovanny Guzman MD [address] [place] [address] PCP - General 02/16/21 documented as of this encounter
--- OUTSIDE RECORDS SUMMARY | 2025-06-21 13:53 | XMS_ITS | Encounter Summary ---
Author Organization Healthcare Address [address] [place] [address] Care Team Providers Care Chief Scientific Officer Name Role Phone Giovanny Guzman MD Primary Care Provider [phone] Encounter Details Date Type Department Care Team [...] Visit [place] [facility] [address], [address] [place] [address] [employer], DORY [address] [place] [address] documented as of this encounter Visit Diagnoses Not on filedocumented in this encounter Additional Health Concerns Assessment Noted Time A fall risk assessment has been complete d for the patient 04/27/2024 10:58 AM EDT A Body Mass Index follow-up plan has been documented for the patient 05/03/2025 2:36 PM EDT documented as of this encounter Care Teams Chief Scientific Officer Relationship Specialty Start Date End Date Giovanny Guzman MD [address] [place] [address] PCP - General 02/16/21 documented as of this encounter
--- OUTSIDE RECORDS SUMMARY | 2025-06-21 13:53 | XMS_ITS | Clinical Summary ---
Author Organization [facility] Address [address] [place] [address] Care Team Providers Care Railway Signalling Engineer Name Role Phone Giovanny Guzman MD Primary Care Provider [phone] Allergies No known active allergies Medications cholecalciferol [...] mg) one time each day 180 tablet 5 Active methocarbamol (Robaxin) 500 MG tablet TAKE [...] Encounters Date Type Department Care Team Description 06/21/2025 Orders Only [facility] [address], [address] [place] [phone] Provider, Historical 05/03/2025 12:40 PM EDT Office Visit [facility] [address], [address] [place] [phone] Bailey Brothers PA Crohn's disease of both small and large intestine without complication (CMS/HCC) (Primary Dx); Gastroesophageal reflux disease, unspecified whether esophagitis present; Encounter for monitoring long-term proton pump inhibitor therapy 05/03/2025 Results Follow-Up [facility] [address], [address] [place] [phone] Bailey [employer] PA 05/03/2025 Telephone [facility] [address], [address] [place] [phone] Terrance Gallo, PharmD Entyvio 05/03/2025 Orders Only [facility] [address], [address] [facility] [place] [address] Bailey Brothers PA Crohn's disease of large intestine without complication (CMS/HCC) (Primary Dx); Crohn's disease without complication, unspecified gastrointestinal tract location (CMS/HCC) 05/03/2025 Travel from Last 3 Months Immunizations Immunization Administration Dates Next Due Influenza, injectable, quadr ivalent, preservative free 07/15/2023,06/27/2022,09/04/2021,2017 Pfizer-BioNTech COVID-19 Vac cine (Purple Cap) 12+ 01/10/2021 [...] Description 09/05/2025 2:00 PM EST [facility] [address] [place] [phone] Bailey Brothers PA [address] [place] [address] Health Maintenance Due Date Last Done Comments [...] 01/13/2013 Sigmoidoscopy 01/13/2013 [facility]-Breast Cancer Screening 01/13/2018 RET-ZVPLS-19 Vaccine (6 - Pfizer risk 2023- season) 2025 07/08/2024, 08/15/2022, 09/24/2021, Additional history [...] WITH AUTO DIFFERENTIAL Routine 06/16/2025 COMPREHENSIVE METABOLIC PANEL, PLASMA Routine 06/16/2025 CALPROTECTIN, FECAL BY IMMUNOASSAY (SO) Routine 05/03/2025 [...] to Health Maintenance Results * CBC and Differential (06/16/2025) Only the most recent of2 resultswithin the time period is included. Blood Venous blood specimen / Unknown Historical Provider LAB BLOOD ORDERABLES Final R esult * Comprehensive Metabolic Panel, Plasma (06/16/2025) Only the most recent of2 resultswithin the time period is included. Blood Venous blood specimen / Unknown Historical Provider LAB BLOOD ORDERABLES Final R esult * (ABNORMAL) Calprotectin, Fecal by Immunoassay (05/03/2025 1:52 PM EDT) CALPROTECTIN >3000(H) <=49 ug/g 05/05/2025 8:30 PM EDT [facility] ([employer]) Stool Stool specimen / Unknown Non-blood Collection / Unknown 05/03/2025 1:52 PM EDT 05/03/2025 1:56 PM EDT Narrative [facility] ([employer]) - 05/05/2025 8:30 PM EDT REFERENCE INTERVAL: Calprotectin, Fecal by Immunoassay Less than 50 ug/g........Normal 50-120 ug/g..............Borderline elevated, test should be re-evaluated in 4-6 weeks. 121 ug/g or greater......Elevated Performed By: [facility] [address] [place] [address] President And Chief Commercial Officer: Jamir Prakash MD, PhD CLIA Number: [id number] Bailey CONNORS LAB BODY FLUIDS AND STOOLS ORDERABLES Final Result [facility] ([employer]) [address] [place] [address] * Hepatitis B Surface Antibody, Quantitative (05/03/2025 1:48 PM EDT) Pathologist [facility] Hepatitis B Surface Antibody, Quantitative <8.00 NonReactiv e: <8, Grayzone: 8 - <12, Reactive: >= 12 mIU/mL 05/03/2025 5:03 PM EDT [facility] Comment: Nonreactive. Individual is considered not immune to HBV infection. Blood Venous blood specimen / Unknown Venipuncture / Unknown 05/03/2025 1:48 PM EDT 05/03/2025 1:50 PM EDT Bailey CONNORS LAB BLOOD ORDERABLES Final Result Performing Organization Address City/[facility]/ZIP Co de Phone Number [facility] [address] [place] [address] * Quantiferon TB Gold (05/03/2025 1:48 PM EDT) Pathologist [facility] Quantiferon TB Gold Plus Result Negative Negative 05/04/2025 5:41 PM EDT [facility] TB Nill Value 0.0602 IU/mL 05/04/2025 5:41 PM EDT [facility] TB Antigen 1 0.0113 IU/mL 05/04/2025 5:41 PM EDT [facility] TB Antigen 2 0.0194 IU/mL 05/04/2025 5:41 PM EDT [facility] TB Mitogen 9.9398 IU/mL 05/04/2025 5:41 PM EDT [facility] Blood Venous blood specimen / Unknown Venipuncture / Unknown 05/03/2025 1:48 PM EDT 05/03/2025 1:50 PM EDT Narrative [facility] - 05/04/2025 5:41 PM EDT Responses to the Mitogen positive control and occasionally to TB antigen can be above the assay range. For calculation purposes: IFN-gamma values > 10 IU/mL are handled as 10 IU/mL. [employer] [place] LAB BLOOD ORDERABLES Final Result [facility] [address] [place] [address] * Hepatitis B surface antigen (05/03/2025 1:48 PM EDT) Pathologist [facility] Hepatitis B Surf Antigen Negative Negative 05/03/2025 5:03 PM EDT [facility] Blood Venous blood specimen / Unknown Venipuncture / Unknown 05/03/2025 1:48 PM EDT 05/03/2025 1:50 PM EDT us Bailey B Stradhabeam PA LAB BLOOD ORDERABLES Final Result Performing Organization Address City/[facility]/ZIP Co de Phone Number [facility] [address] [place] [address] * C-Reactive Protein, Plasma (05/03/2025 1:48 PM EDT) Pathologist [facility] CRP, Plasma 4.8 <=8.0 mg/L 05/03/2025 3:06 PM EDT [facility] Blood Venous blood specimen / Unknown Venipuncture / Unknown 05/03/2025 1:48 PM EDT 05/03/2025 1:50 PM EDT Narrative [facility] - 05/03/2025 3:06 PM EDT This CRP test is appropriate for assessment of infection, systemic inflammation and/or tissue injury. To assess cardiovascular disease risk order high sensitivity CRP (CRPH). us Bailey B Stuffelbeam PA LAB BLOOD ORDERABLES Final Result [facility] [address] [place] [address] * Magnesium (05/03/2025 1:48 PM EDT) Magnesium, Plasma 2.1 1.9 - 2.4 mg/dL 05/03/2025 3:06 PM EDT [facility] Blood Venous blood specimen / Unknown Venipuncture / Unknown 05/03/2025 1:48 PM EDT 05/03/2025 1:50 PM EDT us Bailey B Stradhabeam PA LAB BLOOD ORDERABLES Final Result [facility] [address] [place] [address] * (ABNORMAL) Vitamin B12 (05/03/2025 1:48 PM EDT) Vitamin B12, Serum >2,000(H) 210 - 1,033 pg/mL 05/03/2025 4:29 PM EDT [facility] Blood Venous blood specimen / Unknown Venipuncture / Unknown 05/03/2025 1:48 PM EDT 05/03/2025 1:50 PM EDT us Bailey B Styaseminelbeam PA LAB BLOOD ORDERABLES Final Result Performing Organization Address City/[facility]/ZIP Co de Phone Number [facility] [address] [place] [address] * COLONOSCOPY (07/05/2019) Anatomical Region Laterality Modality Endoscopy Narrative 07/05/2019 Ordered by an unspecified provider. us Historical Provider GI PROCEDURE ORDERABLES Nella l Result from Last 3 Months or Most Recently Relevant to Health Maintenance Insurance MEDICARE [employer] MEDICAID Care Teams Railway Signalling Engineer Relationship Specialty Start Date End Date Giovanny Guzman MD [address] [place] [address] PCP - General 02/16/21
--- OUTSIDE RECORDS SUMMARY | 2025-06-21 13:53 | XMS_ITS | Encounter Summary ---
Author Organization [facility] Address [address] [place] [address] Care Team Providers Care Post Office Markup Clerk Name Role Phone Giovanny Guzman MD Primary Care Provider [phone] Reason for Visit * Reason Comments Med Refill Encounter Details Date Type Department Care Team (Late st Contact Info) Description 08/31/2021 Refill [facility] Medicine Specialties [address] [place] [address] Bailey Brothers, PA [address] [facility] [address] [place] [address] Social History Tobacco Use Types [...] Description 09/05/2025 2:00 PM EST Office Visit [facility] Medicine Specialties [address], [address] [place] [address] Bailey Brothers, PA [address] [place] [address] documented as of this encounter Visit Diagnoses Not on filedocumented in this encounter Additional Health Concerns Infection Onset Date Last Indicated Resolved Time COVID-19 Rule-Out 10/17/2021 10/17/2021 10/17/2021 10:52 AM EST Assessment Noted Time A fall risk assessment has been complete d for the patient 06/26/2021 10:40 AM EDT documented as of this encounter Care Teams Post Office Markup Clerk Relationship Specialty Start Date End Date Giovanny Guzman MD [address] [place] [address] PCP - General 02/16/21 documented as of this encounter
--- OUTSIDE RECORDS SUMMARY | 2025-06-21 13:53 | XMS_ITS | Encounter Summary ---
Author Organization Healthcare Address [address] [place] [address] Care Team Providers Care Protozoologist Name Role Phone Giovanny Guzman MD Primary Care Provider [phone] Reason for Visit * Reason Comments Med Refill Encounter Details Date Type Department Care Team (Late st Contact Info) Description 04/20/2022 Refill [facility] [address] [place] [address] Bailey Brothers PA [address] [place] [address] Crohn's disease of both small [...] Labs will be faxed to [facility] and they will complete within 1-2 days. * Telephone Encounter - Tamela Fuller RN - 04/26/2022 1:23 PM EDT Lab results to be faxed from [facility] * Telephone Encounter - Suyapa Hsu RN - 04/22/2022 3:12 PM EDT Sent [facility] message to pt, to coordinate lab work for Azathioprine refill. Lab work orders placed in Project Manager. Last lab work completed, per Epic, was 12/25/2021. * Telephone Encounter - Kassy Syed - 04/22/2022 8:00 AM EDT Per protocol, 1 medication(s), Azathiprine, has been refused due to: Refill not appropriate documented in this encounter Plan of Treatment Upcoming Encounters Date Type Department Care Team (Late st Contact Info) Description 09/05/2025 2:00 PM EST Office Visit [facility] Medicine Specialties [address] [place] [address] Bailey Brothers PA [address] [place] [address] documented as of this encounter Visit Diagnoses Diagnosis Crohn's disease of both small and large intestine without complication (CMS/HCC)- Primary documented in this encounter Additional Health Concerns Assessment Noted Time A fall risk assessment has been complete d for the patient 12/25/2021 1:03 PM EDT documented as of this encounter Care Teams Protozoologist Relationship Specialty Start Date End Date Giovanny Guzman MD [address] [phone] PCP - General 02/16/21 documented as of this encounter
--- OUTSIDE RECORDS SUMMARY | 2025-06-21 13:53 | XMS_ITS | Encounter Summary ---
Author Organization [facility] Address [address] [place] [address] Care Team Providers Care Sewer Pipe Offbearer Name Role Phone Giovanny Guzman MD Primary Care Provider [phone] Reason for Visit * Reason Comments Med Refill Encounter Details Date Type Department Care Team (Late st Contact Info) Description 07/31/2021 Refill [facility] Medicine Specialties [address] [place] [address] Bailey Brothers, PA [address] [facility] [address] [place] [address] Social History Tobacco Use Types [...] Description 09/05/2025 2:00 PM EST Office Visit [facility] Medicine Specialties [address] [place] [address] Bailey Brothers, PA [address] [place] [address] documented as of this encounter Visit Diagnoses Not on filedocumented in this encounter Additional Health Concerns Infection Onset Date Last Indicated Resolved Time COVID-19 Rule-Out 10/17/2021 10/17/2021 10/17/2021 10:52 AM EST Assessment Noted Time A fall risk assessment has been complete d for the patient 06/26/2021 10:40 AM EDT documented as of this encounter Care Teams Sewer Pipe Offbearer Relationship Specialty Start Date End Date Giovanny Guzman MD [address] [place] [address] PCP - General 02/16/21 documented as of this encounter
--- OUTSIDE RECORDS SUMMARY | 2025-06-21 13:53 | XMS_ITS | Encounter Summary ---
Author Organization Healthcare Address [address] [place] [address] Care Team Providers Care Gravity Meter Operator Name Role Phone Giovanny Guzman MD Primary Care Provider [phone] Reason for Visit * Reason Onset Date Comments Entyvio 05/03/2025 Encounter Details Date Type Department Care Team (Late st Contact Info) Description 05/03/2025 Telephone [facility] [address], [address] [place] [phone] Terrance Gallo, PharmD Entyvio Social History Tobacco [...] Telephone Encounter - Suyapa Hsu RN - 06/20/2025 5:19 PM EDT Reviewed pt's chart: - CBC with diff, CMP, CRP results from 06/02/2025 uploaded under Media tab - CBC with diff, CMP, CRP results form 06/16/2025 uploaded under Media tab - Entyvio week 6 infusion due - 07/14/2025 Updated IBD Labwork Monitoring List * Telephone [...] to receive infusion treatment at outside facility. [facility] will follow up with facility to make sure patient has been scheduled and received first dose. Specialty Medication: Entyvio Filling Pharmacy/SOC: [facility] * Telephone Encounter - Roseanne Montoya CPhT - 05/06/2025 12:32 PM EDT Infusion Authorization Not Required Specialty Medication: Entyvio J-Code/CPT Code/S-Code: J3380 Quantity and Units of Measure Reviewed: QS Diagnosis Code: K50.10 and K50.90 Insurance Name: [employer] Where did you submit request and how (portal/fax/phone number): Availity Reference Number: NA Follow-Up Phone Number: NA Filling Pharmacy/SOC: [facility] Will review auth status in 3 [...] then every 8 weeks Site of Care: [facility] Does patient have an Advantage Plan? No. Will review in 12 months. * Telephone Encounter - Laure Bond PharmD - 05/06/2025 12:06 PM EDT [facility] has received therapy plan for medication Entyvio. [facility] has contacted the patient and are in the process of completing the authorization for preferred site of care, [facility] . [facility] Specialty Education Summary Patient's mother was assessed via phone for initiation of drug therapy Entyvio for diagnosis Crohn's Disease. Plan for administration of therapy in infusion center and planned date of initiation: pending auth. Anticipated filling pharmacy is [facility]. Education and Counseling Medication specific [...] would like infusions to be arranged at [facility]. Thanks! documented in this encounter Plan of Treatment Upcoming Encounters Date Type Department Care Team (Late st Contact Info) Description 09/05/2025 2:00 PM EST Office Visit [facility] Medicine Specialties [address] [place] [address] Bailey Brothers PA [address] [place] [address] documented as of this encounter Visit Diagnoses Not on filedocumented in this encounter Additional Health Concerns Assessment Noted Time A fall risk assessment has been complete d for the patient 04/27/2024 10:58 AM EDT A Body Mass Index follow-up plan has been documented for the patient 05/03/2025 2:36 PM EDT documented as of this encounter Care Teams Gravity Meter Operator Relationship Specialty Start Date End Date Giovanny Guzman MD [address] [place] [phone] PCP - General 02/16/21 documented as of this encounter
== END 2025-06-21 23:59 | disposition home or self-care (01) ==
LOC: RAD 13:48
PROVIDERS: PCP Physician Assistant; Visit Provider Physician Assistant
DX: Z12.31 Encounter for screening mammogram for malignant neoplasm of breast (principal); R92.333 Mammographic heterogeneous density, bilateral breasts
CPT/HCPCS: 77063; 77067

== ENCOUNTER 2025-07-14 13:16 | Outpatient (CLI) | payer MEDICARE, OTHER, SELFPAY ==
[2025-07-14 13:36] VITALS: BP 97/52; PULSE 85; RESP 14; TEMP 36.7; O2SAT 98
[2025-07-14] MEDS: SODIUM CHLORIDE 0.9% 10ML FLUSH SYRINGE 10 ML IV (13:36)
[2025-07-14] MEDS: VEDOLIZUMAB 300 MG in 0.9 % SODIUM CHLORIDE 250 ML 500 MG IV (13:36)
[2025-07-14 14:06] LABS: Hematocrit 37.3 % (37.0-47.0); Hemoglobin 12.5 g/dL (12.2-16.2); Immature Granulocytes % 0.6 %; Mean Corpuscular HGB Conc 33.5 g/dL (31.8-35.4); Mean Corpuscular Hemoglobin 32.7 pg (27.0-31.2); Mean Corpuscular Volume 97.6 fl (81-99); Nucleated Red Blood Cells % 0 %; Platelet Count 336 K/mm3 (142-424); Red Blood Count 3.82 M/mm3 (4.20-5.40); Red Cell Distribution Width-SD 41.6 fL; White Blood Count 6.4 K/mm3 (4.8-10.8)
[2025-07-14 14:15] VITALS: BP 98/62; PULSE 83; RESP 14; TEMP 36.7; O2SAT 98
[2025-07-14 14:29] LABS: Alanine Aminotransferase 17 U/L (12-78); Albumin Level 3.7 g/dl (3.5-5.0); Albumin/Globulin Ratio 1.4 (1.1-1.8); Alkaline Phosphatase 129 U/L (38-126); Anion Gap 11.0 mEq/L (5-15); Aspartate Amino Transferase 22 U/L (14-36); Bilirubin,Total 0.4 mg/dl (0.2-1.3); Blood Urea Nitrogen 13 mg/dl (7-17); Calcium 8.6 mg/dl (8.4-10.2); Carbon Dioxide 27 mmol/L (22.0-30.0); Chloride 106 mmol/L (98-107); Creatinine,Serum 0.80 mg/dl (0.52-1.04); Estimated Glomerular Filt Rate 74 ml/min (>60); GFR (African American) 89 ML/MIN (>60); Globulin 2.7 g/dL (1.3-3.2); Glucose 99 mg/dl (74-100); Potassium 4.0 mmoL/L (3.5-5.1); Sodium 140 mmol/L (136-145); Total Protein,Serum 6.4 g/dl (6.3-8.2)
[2025-07-14 14:34] LABS: C-Reactive Protein 2.2 mg/L (0-4)
== END 2025-07-14 23:59 | disposition home or self-care (01) ==
LOC: INF 13:19
PROVIDERS: PCP Physician Assistant; Visit Provider Physician Assistant
DX: K50.10 Crohn's disease of large intestine without complications (principal)
CPT/HCPCS: 80053; 85025; 86140; 96365; J3380; J7050

== ENCOUNTER 2025-09-08 13:00 | Outpatient (CLI) | payer MEDICARE, OTHER, SELFPAY ==
[2025-09-08 13:25] VITALS: BP 90/54; PULSE 84; RESP 14; TEMP 36.6; O2SAT 97
[2025-09-08] MEDS: SODIUM CHLORIDE 0.9% 10ML FLUSH SYRINGE 10 ML IV (13:25)
[2025-09-08] MEDS: VEDOLIZUMAB 300 MG in 0.9 % SODIUM CHLORIDE 250 ML 500 MG IV (13:25)
[2025-09-08 13:26] LABS: Chloride 105 mmol/L (98-107)
[2025-09-08 13:27] LABS: Albumin Level 4.2 g/dl (3.5-5.0); Hematocrit 40.2 % (37.0-47.0); Hemoglobin 13.6 g/dL (12.2-16.2); Immature Granulocytes % 0.2 %; Mean Corpuscular HGB Conc 33.8 g/dL (31.8-35.4); Mean Corpuscular Hemoglobin 32.1 pg (27.0-31.2); Mean Corpuscular Volume 94.8 fl (81-99); Nucleated Red Blood Cells % 0 %; Platelet Count 324 K/mm3 (142-424); Potassium 3.9 mmoL/L (3.5-5.1); Red Blood Count 4.24 M/mm3 (4.20-5.40); Red Cell Distribution Width-SD 39.5 fL; Sodium 141 mmol/L (136-145); White Blood Count 5.6 K/mm3 (4.8-10.8)
[2025-09-08 13:29] LABS: Alanine Aminotransferase 15 U/L (12-78); Alkaline Phosphatase 113 U/L (38-126); Anion Gap 11.9 mEq/L (5-15); Aspartate Amino Transferase 22 U/L (14-36); Bilirubin,Total 0.3 mg/dl (0.2-1.3); Blood Urea Nitrogen 12 mg/dl (7-17); Carbon Dioxide 28 mmol/L (22.0-30.0); Creatinine,Serum 0.80 mg/dl (0.52-1.04); Estimated Glomerular Filt Rate 74 ml/min (>60); GFR (African American) 89 ML/MIN (>60)
[2025-09-08 13:30] LABS: Albumin/Globulin Ratio 1.3 (1.1-1.8); Calcium 8.9 mg/dl (8.4-10.2); Globulin 3.3 g/dL (1.3-3.2); Glucose 101 mg/dl (74-100); Total Protein,Serum 7.5 g/dl (6.3-8.2)
[2025-09-08 13:40] LABS: C-Reactive Protein 1.4 mg/L (0-4)
[2025-09-08 14:06] VITALS: BP 91/60; PULSE 68; RESP 14
== END 2025-09-08 23:59 | disposition home or self-care (01) ==
LOC: INF 13:02
PROVIDERS: PCP Physician Assistant; Visit Provider Physician Assistant
DX: K50.90 Crohn's disease, unspecified, without complications (principal)
CPT/HCPCS: 80053; 85025; 86140; 96365; J3380; J7050